=== PATIENT | female | born 1940 | race Caucasian/White ===

== ENCOUNTER 2022-03-22 08:47 | Day surgery (SDC) | payer MEDICARE, SELFPAY ==
[2022-03-11 11:23] VITALS: BMI 24.9
--- NOTE | 2022-03-18 09:09 | MHC.SHP ---
Pre-Procedural Eval Section A Date of Service: 03/18/22 The patient is an INPATIENT: No Changes since office visit: No Cold of Flu in the past 2 weeks, No New Medical Problems, No Changes in Medication and No Patient answered all questions The History & Physical has been completed within 30 days and I have reviewed it.: Yes Section B Chief Complaint: cataract Allergies: Allergies Allergy/AdvReac Type Severity Reaction Status Date / Time Influenza Virus Vaccines Allergy Intermediate Rash, Verified 03/11/22 11:13 fever, flu-like symptoms latex Allergy Intermediate Rash Verified 03/11/22 11:13 piroxicam [From Feldene] Allergy Intermediate Rash Verified 03/11/22 11:13 Codeine Phosphate AdvReac Unknown stomach Uncoded 03/11/22 11:13 upset, n/v Plan Diagnosis/Plan: Unchanged I have reviewed the history and physical and performed a pertinent physical examination on my patient. No changes have occurred unless specified.
--- NOTE | 2022-03-19 10:09 | HO.ANESPROP2 ---
Documented by User: Mya Coleman NP 03/19/22 10:10 HPI - Anesthesia Eval Consult details Narrative: 81yo F for Right Cataract Extraction IOL Insertion PCP cleared No previous cataract on record PMFSH Past Medical History Medical History Anxiety Cataract History of hepatitis HTN (hypertension) Hypothyroidism (acquired) Osteoarthritis Paroxysmal tachycardia Personal history of COVID-19 Seasonal allergies Surgical History Surgical History History of liver biopsy History of lumpectomy of left breast History of pubovaginal sling History of total right hip replacement Hx of colonoscopy Hx of partial thyroidectomy Social History Social History Are you a primary personal care worker to a significant other at home: No Do you presently have visiting nurse or other home services: No Patient Tobacco Use Status: Never used Tobacco Use of substances other than those prescribed or required for medical reasons: No Have you been hit, kicked, punched, or otherwise hurt by someone within the past year? If so, by whom?: No Are you DNR?: No Advance Directives: No Advance Directives Information Provided: Yes Advance Directives on File: No Recently lost weight without trying: No Nutrition Risks: Surgical patient >75years Meds Allergies Allergy/AdvReac Type Severity Reaction Status Date / Time Influenza Virus Vaccines Allergy Intermediate Rash, Verified 03/11/22 11:13 fever, flu-like symptoms latex Allergy Intermediate Rash Verified 03/11/22 11:13 piroxicam [From Feldene] Allergy Intermediate Rash Verified 03/11/22 11:13 Codeine Phosphate AdvReac Unknown stomach Uncoded 03/11/22 11:13 upset, n/v Home Medications Medication Instructions Recorded Confirmed Last Taken Type atenolol 50 mg tablet 1.5 tab PO DAILY 03/11/22 03/11/22 Unknown History calcium carbonate 500 mg-vitamin 1 tab PO DAILY 03/11/22 03/11/22 Unknown History D3 10 mcg (400 unit) tablet (Calcium 500 + D) flaxseed oil 1,300 mg-omega 3,6,9 1 cap PO BID 03/11/22 03/11/22 Unknown History 845 mg-117 mg-117 mg capsule levothyroxine 50 mcg tablet 1 tab PO DAILY 03/11/22 03/22/22 03/22/22 History Exam Exam Date and Time: March 19, 2022 1009 Height,Weight and Vital Signs: Height 5 ft 7 in Weight 72.121 kg Assessment and Plan Assessment Anesthesia Assessment: Chart Reviewed Documented by User: Melania Gao MD 03/22/22 11:01 [facility] Past Medical History Medical History Anxiety Cataract History of hepatitis HTN (hypertension) Hypothyroidism (acquired) Osteoarthritis Paroxysmal tachycardia Personal history of COVID-19 Seasonal allergies Family History Family history of problems with anesthesia: No Surgical History Surgical History History of liver biopsy History of lumpectomy of left breast History of pubovaginal sling History of total right hip replacement Hx of colonoscopy Hx of partial thyroidectomy History of Problems with Anesthesia: No Social History Social History Are you a primary personal care worker to a significant other at home: No Do you presently have visiting nurse or other home services: No Patient Tobacco Use Status: Never used Tobacco Use of substances other than those prescribed or required for medical reasons: No Have you been hit, kicked, punched, or otherwise hurt by someone within the past year? If so, by whom?: No Are you DNR?: No Advance Directives: No Advance Directives Information Provided: Yes Advance Directives on File: No Recently lost weight without trying: No Nutrition Risks: Surgical patient >75years Meds Allergies Allergy/AdvReac Type Severity Reaction Status Date / Time Influenza Virus Vaccines Allergy Intermediate Rash, Verified 03/11/22 11:13 fever, flu-like symptoms latex Allergy Intermediate Rash Verified 03/11/22 11:13 piroxicam [From Feldene] Allergy Intermediate Rash Verified 03/11/22 11:13 Codeine Phosphate AdvReac Unknown stomach Uncoded 03/11/22 11:13 upset, n/v Home Medications Medication Instructions Recorded Confirmed Last Taken Type atenolol 50 mg tablet 1.5 tab PO DAILY 03/11/22 03/11/22 Unknown History calcium carbonate 500 mg-vitamin 1 tab PO DAILY 03/11/22 03/11/22 Unknown History D3 10 mcg (400 unit) tablet (Calcium 500 + D) flaxseed oil 1,300 mg-omega 3,6,9 1 cap PO BID 03/11/22 03/11/22 Unknown History 845 mg-117 mg-117 mg capsule levothyroxine 50 mcg tablet 1 tab PO DAILY 03/11/22 03/22/22 03/22/22 History Exam Height,Weight and Vital Signs: Height 5 ft 7 in Weight 72.121 kg Vital Signs Temp Pulse Resp BP Pulse Ox O2 Del Method 03/22/22 10:45 97.8 F 63 18 166/88 H 99 Room Air Airway Mallampati Class: II TM Dist: >3cm Neck ROM: Full Loose/Missing/Broken Teeth: No (Per patient) Heart: RRR Lungs: CTAB Assessment and Plan Assessment Anesthesia Assessment: Anesthesia Plan Discussed Final Anesthetic Review Family History of Problems with Anesthesia: No History of Problems with Anesthesia: No NPO: Yes ASA Class: II Final Preanesthetic Review: No Changes in Pt Med Stat, Meds/Allgs Chart Reviewed, Consent Obtained/Reviewed and Anes Risks/Benef Reviewed Patient Risk: Low Procedure Risk: Low Assessment/Block/Sedation in SS: Assess/Block/Sedation-SS Anesthetic Plan Anesthetic Plan: MAC: Disposition: Standard PACU
[2022-03-22 10:45] VITALS: BP 166/88; PULSE 63; RESP 18; TEMP 36.6; O2SAT 99
[2022-03-22] MEDS: Tropicamide 1 % Ophth Sol 3 ML BTL 1 DROP EYE-RIGHT ×3 (10:49→11:02)
[2022-03-22] MEDS: Tetracaine HCl/PF 0.5% Oph Sol 4 ML DROPS 1 DROP EYE-RIGHT (10:49)
[2022-03-22] MEDS: Phenylephrine HCL 2.5% Oph SoL 2 ML BOTTLE 1 DROP EYE-RIGHT ×3 (10:50→11:02)
[2022-03-22] MEDS: Cyclopentolate 1 % Ophth Sol 2 ML DRPBTL 1 DROP EYE-RIGHT ×3 (10:50→11:02)
[2022-03-22] MEDS: Lactated Ringers 500 ML 50 ML IV (11:08)
--- NOTE | 2022-03-22 11:54 | HO.PNOPHT ---
Ophthalmology Procedure Procedure Date of Service: 03/22/22 Ophthalmology Viscoelastic: Healon Duet Dual Pack Pro Ophthalmology Lenses: Not Applicable Procedure Notes: PREOPERATIVE DIAGNOSIS: Decreased visual acuity right eye secondary to cataract POSTOPERATIVE DIAGNOSIS: Same PROCEDURE: Right cataract extraction with intraocular lens insertion SURGEON: Bj Mercedes M.D. ANESTHESIA: Topical/MAC ESTIMATED BLOOD LOSS: None COMPLICATIONS: Marked corneal edema After obtaining informed consent, the patient was brought to the operating room suite and placed in the supine position. After adequate sedation per anesthesia, topical drops of Tetracaine were given to the right eye. The eye was then prepped and draped in the usual sterile fashion. The operating room microscope was then positioned over the operative eye and a lid speculum placed. A paracentesis was created. Viscoelastic was then instilled into the anterior chamber. A three plane incision was then created temporally, utilizing a 2.85 mm keratome. The cornea became cloudy and edematous. I cancelled the surgery because I could not proceed safely. The residual Viscoelastic was then removed utilizing the automated IA machine. The wound was checked and found to be watertight. The lid speculum was removed. A subtenon injection of Kenalog-40 0.2 mL were administered. The patient will be seen in the a.m.
[2022-03-22 12:18] VITALS: BP 159/81; PULSE 64; RESP 16; TEMP 36.1; O2SAT 97
== END 2022-03-22 12:21 | disposition home or self-care (01) ==
PROVIDERS: PCP Internal Medicine; Visit Provider Ophthalmology
DX: H25.11 Age-related nuclear cataract, right eye (principal); H59.88 Other intraoperative complications of eye and adnexa, not elsewhere classified; H18.231 Secondary corneal edema, right eye; Y84.8 Other medical procedures as the cause of abnormal reaction of the patient, or of later complication, without mention of misadventure at the time of the procedure; Z53.29 Procedure and treatment not carried out because of patient's decision for other reasons
CPT/HCPCS: 66984; J2250; J3010; J3300

== ENCOUNTER 2025-06-23 11:25 | Emergency (ER) | payer MEDICARE, SELFPAY ==
--- OUTSIDE RECORDS SUMMARY | 2009-06-23 12:30 | XMS_ITS | Encounter Summary ---
Author Organization [facility] Address [address] [place] [phone] Care Team Providers Care Tread Builder Name Role Phone Unavailable Primary Care Provider Unavailabl e Encounter Details Date Type Department Care Team (Latest Contact Info) Description 06/23/2009 12:30 PM EST Hospital Encounter [facility] Interventional Radiology [address] [place] [address] [phone] Ernestine Mack MD [address] [place] [phone] Social History Tobacco Use Types Packs/Day Years Used Date Smoking Tobacco: Never Assessed Comments Unknown Sex and Gender Information Value Date Recorded Sex Assigned at Not on file Legal Sex Female 8:28 AM EST Gender Identity Not on file Sexual Orientation Not on file documented as of this encounter Plan of Treatment Not on file documented as of this encounter Visit Diagnoses Not on filedocumented in this encounter
--- OUTSIDE RECORDS SUMMARY | 2025-06-19 09:45 | XMS_ITS | Encounter Summary ---
Author Organization [facility] Address [facility] [address] [address] Phone Care Team Providers Care Rig Manager Name Role Phone Alessandro Chang MD Primary Care Provider Isael Romero MD Unavailable [phone] Cintia Pate PA-C Unavailable [phone] Reason for Visit * Physical Therapy (Within 1 month) - Authorized Specialty Diagnoses / Procedures Referred By Johanne hoksins Referred To Contact Physical Therapy Diagnoses Encounter for rehabilitation Morris Fry MD [address] [place] [address] Phone: tel: fax: [facility] [address] [place] [address] Phone: tel: Referral ID Status Reason Start Date Expiration Date V isits Requested Visits Authorized [id number] Authorized 04/17/2025 04/17/2026 99 99 Encounter Details Date Type Department Care Team (Late st Contact Info) Description 06/19/2025 10:45 AM EDT Office Visit [facility] Services [address] [place] [phone] Morris Fry MD [address] [place] [phone] Dagmar Lopez, PT [address] [place] [address] [email or web address] Acute postoperative pain of left hip (Primary Dx) Social History Tobacco Use Types Packs/Day Years Used Date Smoking Tobacco: Never Smokeless Tobacco: Never Alcohol Use Standard Drinks/Week Comments Yes 7 (1 standard drink = 0.6 oz pur e alcohol) Home Health Assessment: Transportation Answer Date Recorded Lack of Transportation (Medical) No 04/20/2023 Lack of Transportation (Non-Medical) No 04/20/2023 Patient Unable or Declines to Respond No 04/20/2023 Education Answer Date Recorded Are you interested in more education? Not on ladarius e 12/17/2022 Are you concerned about learning? Not on file 12/17/2022 No 12/17/2022 No 12/17/2022 Digital Access Answer Date Recorded No 01/15/2023 No 01/15/2023 Reliable internet access at home? Not on file 01/15/2023 Device with a working camera? Not on file Intimate Partner Violence Answer Date R ecorded Are you denied basic needs s uch as food, clothing, or medical care? No 04/06/2023 In the past 12 months have y ou been in a relationship with a person who hurts, threatens, or tries to control you? No 04/06/2023 Are you denied basic needs s uch as food, clothing, or medical care? No 04/06/2023 In the past 12 months have y ou been in a relationship with a person who hurts, threatens, or tries to control you? No 04/06/2023 Comments No Sex and Gender Information Value Date Recorded Sex Assigned at Not on file Legal Sex Female 10:38 PM EDT Gender Identity Not on file Sexual Orientation Not on file documented as of this encounter Progress Notes * Dagmar Lopez, PT - 06/19/2025 10:45 AM EDT Subject Line: Treatment Note Physical Therapy Treatment Note Patient Name: Pee Richards Date of : 1940 Referring MD: Morris Fry MD [address] [place] [address] Evaluation Date: SOC Date: 06/17/25 Diagnosis: Acute postoperative pain of left hip [G89.18, M25.552] Precautions/ Safety: L THR, latex allergy This patient has attended 2 visits since the onset Physical Therapy. SUBJECTIVE: Pt continues to deny L hip pain, but reports decreased ROM and strength. OBJECTIVE: Strength: Lower Extremity Strength MMT- EVAL 06/17/25 HIP Right Left Flexion 5/5 4/5 Extension 4-/5 4-/5 Abduction 4-/5 3+/5 Internal Rotation 4+/5 4/5 External Rotation 3+/5 2+/5 KNEE Right Left Flexion 5/5 5/5 Extension 5/5 5/5 ANKLE Right Left Dorsiflexion 5/5 5/5 Plantarflexion 4+/5 4+/5 Treatment Interventions: See encounter report for minutes associated with each intervention. Therapeutic Exercise: Recumbent bike 5 mins L=1 Standing marching 20x ea Sidelying hip abd 10x ea Bridging 10x Clam shells with YTB 10x ea Sitting hip IR/ER 10x ea Standing hip ext leaning over counter 10x ea Home Exercise Program: Standing marching Sidelying hip abd Bridging Clam shells with YTB Sitting hip IR/ER Standing hip ext leaning over counter Sidestepping Step ups SLR Not Performed Today but will be used in future visits: ASSESSMENT: Good tolerance to initiating LE strengthening exercises. Will continue to progress as tolerated. PLAN: Continue POC- ROM, stretching, strengthening, manual therapy as needed, functional activities, gait Dagmar Lopez, ANUP [phone] documented in this encounter Plan of Treatment Upcoming Encounters Date Type Department Care Team (Latest Contact Info) Description 06/24/2025 10:45 AM EST Office Visit [facility] Rehabilitation [facility] [address] [place] [address] Morris Fry MD [address] [place] [phone] Dagmar Lopez, PT [address] [place] [address] [email or web address] 06/27/2025 10:15 AM EST Office Visit [address] [address] Morris Fry MD [address] [place] [phone] Lashawn Ramirez, [address] [address] [email or web address] 07/01/2025 10:15 AM EST Office Visit [address] [address] Morris Fry MD [address] [place] [phone] Lashawn Ramirez, [address] [address] [email or web address] 07/03/2025 10:00 AM EST Office Visit [address] [address] Morris Fry MD [address] [place] [phone] Dagmar Lopez, PT [address] [place] [address] [email or web address] 07/08/2025 10:00 AM EST Office Visit [address] [address] Morris Fry MD [address] [place] [phone] Dagmar Lopez, PT [address] [place] [address] [email or web address] 07/12/2025 10:15 AM EST Office Visit [address] [address] Morris Fry MD [address] [place] [address] Lashawn Ramirez, INSEMINATION WORKER [address] [place] [address] [email or web address] 07/15/2025 10:45 AM EST Office Visit [address] [address] Morris Fry MD [address] [place] [phone] Dagmar Lopez, PT [address] [place] [address] [email or web address] 07/17/2025 10:45 AM EST Office Visit [address] [address] Morris Fry MD [address] [place] [phone] Dagmar Lopez, PT [address] [place] [address] [email or web address] 07/22/2025 11:00 AM EST Office Visit [address] [address] Morris Fry MD [address] [place] [phone] Lashawn Ramirez, INSEMINATION WORKER [address] [place] [address] [email or web address] 07/25/2025 10:45 AM EST Office Visit [address] [address] Morris Fry MD [address] [place] [phone] Dagmar Lopez, PT [address] [place] [address] [email or web address] 07/29/2025 10:45 AM EST Office Visit [address] [address] Morris Fry MD [address] [place] [phone] Dagmar Lopez, PT [address] [place] [address] [email or web address] 08/01/2025 10:45 AM EST Office Visit [address] [address] Morris Fry MD [address] [place] [phone] Dagmar Lopez, PT [address] [place] [address] [email or web address] 08/05/2025 10:15 AM EST Office Visit [address] [address] Morris Fry MD [address] [place] [phone] Lashawn Ramirez, INSEMINATION WORKER [address] [place] [address] [email or web address] 08/08/2025 10:45 AM EST Office Visit [address] [address] Morris Fry MD [address] [place] [phone] Dagmar Lopez, PT [address] [place] [address] [email or web address] 08/12/2025 10:45 AM EST Office Visit [address] [address] Morris Fry MD [address] [place] [phone] Dagmar Lopez, PT [address] [place] [address] [email or web address] 08/14/2025 10:00 AM EST Office Visit [address] [address] Morris Fry MD [address] [place] [phone] Dagmar Lopez, PT [address] [place] [address] [email or web address] 08/19/2025 11:00 AM EST Office Visit [address] [address] Morris Fry MD [address] [place] [phone] Lashawn Ramirez, INSEMINATION WORKER [address] [place] [address] [email or web address] 08/21/2025 10:45 AM EST Office Visit [address] [address] Brothers, Morris Snider MD [address] [place] [phone] Dagmar Lopez, PT [address] [place] [address] [email or web address] 10/03/2025 9:30 AM EST Office Visit [facility] [address] [place] [address] Marcio Saba PA-C [address] [place] [address] Orthopedics Sports [facility], [place] [address] [email or web address] 10/21/2025 Procedure Pass OR Admitting Dept - Virtual Department [address] [place] [address] 10/21/2025 1:47 PM EST Hospital Encounter OR Admitting Dept - Virtual Department [address] [place] [address] Jase Jaime MD [address] [place] [address] Orthopedics Sports [facility], [place] [address] [email or web address] 10/21/2025 1:47 PM EST - 10/21/2025 4:54 PM EST Surgery OR Admitting Dept - Virtual Department [address] [place] [address] Jase Jaime MD [address] [place] [address] Orthopedics Sports [facility], [place] [address] [email or web address] ARTHROPLASTY TOTAL KNEE 10/31/2025 10:30 AM EDT Office Visit [facility] [address] [place] [address] Marcio Saba PA-C [address] [place] [address] Orthopedics & Sports [facility], [place] [address] [email or web address] 12/05/2025 10:15 AM EDT Office Visit [facility] [address] [place] [address] Jase Jaime MD [address] [place] [address] Orthopedics & Sports Medicine, [place] [address] [email or web address] Scheduled Procedures Name Priority Associated Diagnoses Date/Ti me ARTHROPLASTY TOTAL KNEE Primary osteoarthritis of right knee 10/21/2025 1:47 PM EST documented as of this encounter Visit Diagnoses Diagnosis Acute postoperative pain of left hip- Primary Primary osteoarthritis of right knee documented in this encounter Care Teams Rig Manager Relationship Specialty Start Date End Date Alessandro Chang MD [address] [place] [phone] PCP - General 06/09/17 Iasel Romero MD [address] [place] [address] [email or web address] Historical LMR Provider 06/11/17 Cintia Pate PA-C [address] [place] [address] [facility] [place], [place] [address] [email or web address] Historical LMR Provider 06/11/17 documented as of this encounter Additional Source Comments The information contained in this document represents components of the legal health record. It is not the complete legal health record.[facility]
--- NOTE | 2025-06-23 | ECG_ITS ---
Test Reason : PALPATAION Blood Pressure : */* mmHG Vent. Rate : 130 BPM Atrial Rate : * BPM P-R Int : * ms QRS Dur : 78 ms QT Int : 310 ms P-R-T Axes : * 16 96 degrees QTcB Int : 456 ms Atrial fibrillation with rapid ventricular response Abnormal QRS-T angle, consider primary T wave abnormality Abnormal ECG No previous ECGs available Referred By: Generic ED Physician Electronically Signed By: Chris Burleson
--- NOTE | ~2025-06-23 | XR_ITS ---
CLINICAL HISTORY: cp 1 view chest x-ray. Comparison: None Findings: Normal lung volumes. Lungs are clear. No pneumothorax or pleural effusion. Heart size normal. No passive venous congestion. No midline shift or tracheal deviation. No acute fracture. Chronic degenerative changes glenohumeral joints Impression: 1. No acute cardiopulmonary disease. This document has been electronically signed by: Julio Birch MD on 06/23/2025 13:53:49
[2025-06-23 11:42] VITALS: BP 132/81; BP 150/76; PULSE 140; PULSE 142; RESP 20; TEMP 36.4; O2SAT 95; O2SAT 96; BMI 26.3
[2025-06-23 11:51] VITALS: BP 132/81; PULSE 142; RESP 20; TEMP 36.4; O2SAT 96
--- NOTE | 2025-06-23 12:37 | ED.CHESTPAIN ---
HPI - Chest Pain General Chief Complaint: Chest Pain Stated Complaint: PALPITATIONS,HR 125 PER EMS Time Seen by Provider: 06/23/25 11:47 History of Present Illness HPI narrative: Patient is an 84-year-old female with a history of SVTs. Never had any atrial fibrillation in the past. At approximately 08:00 this morning patient noted palpitation. From home. No fever no chills no travel no leg swelling positive history of thyroid problems in the past no history of congestive heart failure no chest pain or diaphoresis. Patient is from home. No history of strokes in the past. Borderline hypertension. Came to the ED because of the increased heart rate. 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 No chest pain associated with these symptoms. Related Data Home Medications ?Medication ?Instructions ?Recorded ?Confirmed atenolol 50 mg tablet 1.5 tab PO DAILY 03/11/22 03/11/22 calcium 500 mg (as 1 tab PO DAILY 03/11/22 03/11/22 carbonate)-vitamin D3 10 mcg (400 unit) tablet (Calcium 500 + D) flaxseed oil 1,300 mg-omega 3,6,9 1 cap PO BID 03/11/22 03/11/22 845 mg-117 mg-117 mg capsule levothyroxine 50 mcg tablet 1 tab PO DAILY 03/11/22 03/22/22 Previous Rx's ?Medication ?Instructions ?Recorded apixaban 5 mg tablet (Eliquis) 5 mg PO BID #60 tabs 06/23/25 atenolol 100 mg tablet 100 mg PO DAILY #30 tabs 06/23/25 Allergies Allergy/AdvReac Type Severity Reaction Status Date / Time Influenza Virus Vaccines Allergy Intermediate Rash, Verified 06/23/25 11:48 fever, flu-like symptoms latex Allergy Intermediate Rash Verified 06/23/25 11:48 piroxicam (From Feldene) Allergy Intermediate Rash Verified 06/23/25 11:48 Codeine Phosphate AdvReac Unknown stomach Uncoded 06/23/25 11:48 upset, n/v Review of Systems Review of Systems: Positive palpitation Yes all other systems are reviewed and are negative PMFSH Past Medical History Attestation statement: The following information was validated with the patient. Medical History Anxiety Cataract History of hepatitis HTN (hypertension) Hypothyroidism (acquired) Osteoarthritis Paroxysmal tachycardia Personal history of COVID-19 Seasonal allergies Surgical History History of liver biopsy History of lumpectomy of left breast History of pubovaginal sling History of total right hip replacement Hx of colonoscopy Hx of partial thyroidectomy Social History Social History Are you a primary health care attorney to a significant other at home: No Do you presently have visiting nurse or other home services: No Patient Tobacco Use Status: Never used Tobacco Smoked in Last 30 Days: No Use of substances other than those prescribed or required for medical reasons: No Advance Directives: No Advance Directives Information Provided: Yes Do you have a plan to hurt others: No Plan Physical Exam Exam: Exam: Appearance: Alert. Oriented X3. No acute distress. Eyes: Pupils equal, round and reactive to light. ENT: Pharynx normal. Neck: Normal inspection. Neck supple. No lymph nodes noted. No crepitus CVS: Irregularly irregular Pulses normal. Normal S1 and S2 Respiratory: No respiratory distress. Breath sounds normal. No Wheezing. No rales Abdomen: Soft and nontender. No rigidity. No distention. good BS x4 Skin: Skin warm and dry. Normal skin color. Normal skin turgor. Extremities: No lower extremity edema. Neurovascular intact to all extremities. No Lacerations. No Rash Neuro: Oriented X 3. No motor deficit. No sensory deficit. Moving all extermities. No slurred speech Vital Signs: Vital Signs: Last Vital Signs Temp 97.5 F 06/23/25 11:51 Pulse 133 H 06/23/25 13:25 Resp 20 06/23/25 11:51 BP 120/79 06/23/25 13:25 Pulse Ox 96 06/23/25 11:51 O2 Del Method Room Air 06/23/25 11:51 BMI result Body Mass Index 26.3 Medications Administered Discontinued Medications Generic Name Dose Route Start Last Admin Trade Name Freq PRN Reason Stop Dose Admin Sodium Chloride 500 mls @ 999 mls/hr 06/23/25 12:45 06/23/25 13:25 Ns IV 06/23/25 13:15 Infused .Q31M DAVIDA Infusion Metoprolol Tartrate 5 mg 06/23/25 12:37 06/23/25 12:50 Metoprolol Tartrate 5 Mg/5 Ml Vial IVPUSH 06/23/25 12:38 5 mg ONCE ONE Administration Protocol Metoprolol Tartrate 5 mg 06/23/25 13:12 06/23/25 13:24 Metoprolol Tartrate 5 Mg/5 Ml Vial IVPUSH 06/23/25 13:13 5 mg ONCE ONE Administration Protocol Medical Decision Making Medical Decision Making [facility] Narrative: Patient initially presented in atrial fibrillation. The heart rate was 130-150. My interpretation patient's EKG shows an atrial fibrillation pattern 130. No acute ST segment elevation. Patient has a history of being 84 years old. Also female. Also has a history of hypertension. Chads Vasc score is at least a 3 to a 4. Patient will be started on Eliquis. In addition patient has a history of SVT. Currently is on atenolol 75 mg. After 2 doses of metoprolol patient's switch into a sinus pattern. I discussed the case with Cardiology felt comfortable with starting the Eliquis wants the atenolol to be increased to 100 mg daily. Currently in stable condition. Will discharge home. Cardiac enzyme was negative. Labs are normal. TSH is normal. Differential Diagnosis Differential Diagnoses: The differential diagnosis associated with the presentation includes Hyperthyroid, ACS, EtOH, anemia, AFib, SVT Admission/Observation Consideration of admission/observation: Escalation of care including admission/observation considered Consult Healthcare Provider Management of the patient was discussed with: Plate Stacker Hand (Cardiology) Lab Data [facility] Lab Attestation statement: I reviewed the patient's lab results. 06/23/25 13:28 06/23/25 13:28 Labs: Lab Results 06/23/25 Range/Units 13:28 WBC 7.3 (4.8-10.8) X10*3/uL RBC 4.15 L (4.20-5.50) X10*6/uL Hgb 13.0 (12.0-16.0) g/dl Hct 39.9 (37.0-47.0) % MCV 96.1 (80.0-98.0) fL MCH 31.3 (27.0-33.0) pg MCHC 32.6 (31.0-35.0) g/dl RDW 11.8 (11.0-16.0) % Plt Count 253 (160-400) X10*3/uL MPV 9.8 (9.4-12.3) fL Immature Gran % (Auto) 0.3 (0.0-0.4) % Neut % (Auto) 72.6 (45-73) % Lymph % (Auto) 12.1 L (20-40) % Tama % (Auto) 12.5 H (2-11) % Eos % (Auto) 2.2 (0-4) % Baso % (Auto) 0.3 (0-2) % Lymph # (Auto) 0.9 L (1.2-4.9) X10*3/uL Tama # (Auto) 0.9 (0.1-1.2) X10*3/uL Eos # (Auto) 0.2 (0.0-0.4) X10*3/uL Baso # (Auto) 0.0 (0.0-0.2) X10*3/uL Abs Immat Gran (auto) 0.02 (0.00-0.03) X10*3/uL Absolute Neuts (auto) 5.3 (2.0-8.3) x10*3/uL Absolute Nucleated RBC 0.000 (0.0-0.012) X10*3/uL Nucleated RBC % (auto) 0.0 (0.0-0.2) /100WBC PT 11.6 (10.9-12.4) SEC INR 1.0 (0.9-1.1) Sodium 137 (135-145) mmol/L Potassium 4.5 (3.3-5.1) mmol/L Chloride 103 (96-108) mmol/L Carbon Dioxide 26 (22-29) mmol/L Anion Gap 13 (12-20) BUN 12 (9-16) mg/dL Creatinine 0.58 (0.5-1.4) mg/dL Estim Creat Clear Calc 76.8 Estimated GFR > 60 Random Glucose 94 (60-115) mg/dL Calcium 8.3 L (8.4-10.2) mg/dL Magnesium 1.9 (1.6-2.6) mg/dL Total Bilirubin 0.5 (0.0-1.0) mg/dL Direct Bilirubin 0.2 (0.0-0.5) mg/dL AST 29 (5-31) U/L ALT 12 (0-31) U/L Alkaline Phosphatase 103 (39-117) U/L Troponin I High Sens 7.6 (<3.5-17.0) ng/L Total Protein 6.0 L (6.5-8.0) g/dL Albumin 3.6 (3.5-5.0) g/dL TSH 0.93 (0.32-4.0) uIU/mL Ethyl Alcohol < 10 mg/dL Independent Interpretation I performed an independent interpretation of an: EKG (Atrial fibrillation heart rate is 130. My interpretation patient's 2nd EKG showed a sinus rhythm heart rate is 75 [place] QRS QTC within normal limits is no acute ST segment elevation.) and Plain X-Ray (Chest x-ray grossly negative) Radiology Impression Discussion of test interpretation with radiology: I have reviewed the radiologist's reading. Independent Historian Clinical information obtained from an independent historian. History obtained from or confirmed by: Other (Family) External Record Review External record reviewed: Outpatient record Chronic Conditions svt Discharge Plan Discharge Clinical Impression: A-fib Patient Disposition: Home, Self-Care Instructions: A-fib (Atrial Fibrillation) (ED) Prescriptions: New Eliquis 5 mg tablet 5 mg PO BID Qty: 60 0RF atenolol 100 mg tablet 100 mg PO DAILY Qty: 30 0RF No Action levothyroxine 50 mcg tablet 1 tab PO DAILY atenolol 50 mg tablet 1.5 tab PO DAILY calcium carbonate-vitamin D3 [Calcium 500 + D] 500 mg-10 mcg (400 unit) Tablet 1 tab PO DAILY flaxseed oil-omega 3,6,9 1,300 mg-845 mg -117 mg-117 mg Capsule 1 cap PO BID Referrals: Ron Mejia MD [Physician, Cardiology] - 06/25/25 Print Language: Luxembourgish
--- OUTSIDE RECORDS SUMMARY | 2025-06-23 12:48 | XMS_ITS | Encounter Summary ---
Author Organization [facility] Address [address] [place] [phone] Care Team Providers Care Travel Occupational Therapist Name Role Phone Unavailable Primary Care Provider Unavailabl e Encounter Details Date Type Department Care Team (Late st Contact Info) Description 04/21/2021 Scanned Document [facility] [address] [place] [address] [place] [id number] Ernestine Mack MD [address] [place] [phone] Social History Tobacco Use Types Packs/Day Years Used Date Smoking Tobacco: Never Assessed Comments Unknown Sex and Gender Information Value Date Recorded Sex Assigned at Not on file Legal Sex Female 8:28 AM EST Gender Identity Not on file Sexual Orientation Not on file documented as of this encounter Plan of Treatment Not on file documented as of this encounter Procedures Procedure Name Priority Date/Time Associated Diagnosis Comments LAB SCAN Routine 04/20/2021 documented in this encounter Results * Lab Scan (04/20/2021) us Ernestine Mack MD LAB BLOOD ORDERABLES Final Result documented in this encounter Visit Diagnoses Not on filedocumented in this encounter
--- OUTSIDE RECORDS SUMMARY | 2025-06-23 12:48 | XMS_ITS | Encounter Summary ---
Author Organization [facility] Address [address] [place] [phone] Care Team Providers Care Keg Washer Name Role Phone Unavailable Primary Care Provider Unavailabl e Encounter Details Date Type Department Care Team (Late st Contact Info) Description 03/04/2016 Scanned Document [facility] [address] [facility] [address] [facility] [address] [place] [address] External, Provider Social History Tobacco Use Types Packs/Day Years [...] Date/Time Associated Diagnosis Comments LAB SCAN Routine 02/24/2016 documented in this encounter Results * Lab Scan (02/24/2016) Blood specimen (specimen) us Provider External LAB BLOOD ORDERABLES Final Res ult [facility] [place], [place], [facility] documented in this encounter Visit Diagnoses Not on filedocumented in this encounter
--- OUTSIDE RECORDS SUMMARY | 2025-06-23 12:48 | XMS_ITS | Encounter Summary ---
Author Organization [facility] Address [address] [place] [phone] Care Team Providers Care Junior Systems Engineer Name Role Phone Unavailable Primary Care Provider Unavailabl e Encounter Details Date Type Department Care Team (Late st Contact Info) Description 09/22/2015 Scanned Document [facility] [address] [facility] [address] [facility] [address] [place] [address] External, Provider Social History Tobacco Use Types [...] Date/Time Associated Diagnosis Comments LAB SCAN Routine 08/28/2015 documented in this encounter Results * Lab Scan (08/28/2015) Blood specimen (specimen) us Provider External LAB BLOOD ORDERABLES Final Res ult [facility] [place], [place], [facility] documented in this encounter Visit Diagnoses Not on filedocumented in this encounter
--- OUTSIDE RECORDS SUMMARY | 2025-06-23 12:48 | XMS_ITS | Encounter Summary ---
Author Organization [facility] Address [address] [facility] [address] [place] [phone] Phone Care Team Providers Care Punchboard Assembler Name Role Phone Alessandro Chang MD Primary Care Provider Isael Romero MD Unavailable [phone] Cintia Pate PA-C Unavailable [phone] Encounter Details Date Type Department Care Team (Late st Contact Info) Description 03/08/2023 Ancillary Orders [facility] & [facility] Medicine [address] [place] [phone] Marcio Saba PA-C [address] [place] [address] Orthopedics & Sports Medicine, [facility] [place], [place] [id number] Social History Tobacco Use Types Packs/Day Years Used Date Smoking Tobacco: Never Smokeless Tobacco: Never Alcohol Use Standard Drinks/Week Comments Yes 1 (1 standard drink = 0.6 oz pur e alcohol) daily Education Answer Date Recorded Are you interested in more education? Not on ladarius e 12/17/2022 Are you concerned about learning? Not on file 12/17/2022 No 12/17/2022 No 12/17/2022 Digital Access Answer Date Recorded No 01/15/2023 No 01/15/2023 Reliable internet access at home? Not on file 01/15/2023 Device with a working camera? Not on file Comments Unknown Sex and Gender Information Value Date Recorded Sex Assigned at Not on file Legal Sex Female 10:38 PM EDT Gender Identity Not on file Sexual Orientation Not on file documented as of this encounter Plan of Treatment Upcoming Encounters Date Type Department Care Team (Latest Contact Info) Description 06/24/2025 10:45 AM EST Office Visit [address] [address] Morris Fyr MD [address] [place] [phone] Dagmar Lopez, PT [address] [place] [address] sue [email or web address] 06/27/2025 10:15 AM EST Office Visit [address] [address] Morris Fry MD [address] [place] [phone] Lashawn Ramirez, RECRUITING SPECIALIST [address] [place] [phone] [email or web address] 07/01/2025 10:15 AM EST Office Visit [address] [address] Morris Fry MD [address] [place] [phone] Lashawn Ramirez, RECRUITING SPECIALIST [address] [place] [address] [email or web address] 07/03/2025 10:00 AM EST Office Visit [address] [address] Morris Fry MD [address] [place] [address] Dagmar Lopez, PT [address] [place] [address] sue [email or web address] 07/08/2025 10:00 AM EST Office Visit [address] [address] Morris Fry MD [address] [place] [phone] Dagmar Lopez, PT [address] [place] [address] [email or web address] 07/12/2025 10:15 AM EST Office Visit [address] [address] Morris Fry MD [address] [place] [phone] Lashawn Ramirez, RECRUITING SPECIALIST [address] [place] [address] [email or web address] 07/15/2025 10:45 AM EST Office Visit [address] [address] Morrsi rFy MD [address] [place] [phone] Dagmar Lopez, PT [address] [place] [address] [email or web address] 07/17/2025 10:45 AM EST Office Visit [address] [address] Morris Fry MD [address] [place] [phone] Dagmar Lopez, PT [address] [place] [address] sue [email or web address] 07/22/2025 11:00 AM EST Office Visit [address] [address] Morris Fry MD [address] [place] [phone] Lashawn Ramirez, RECRUITING SPECIALIST [address] [place] [address] [email or web address] 07/25/2025 10:45 AM EST Office Visit [address] [address] Morris Fry MD [address] [place] [phone] Dagmar Lopez, PT [address] [place] [address] [email or web address] 07/29/2025 10:45 AM EST Office Visit [address] [address] Morris Fry MD [address] [place] [address] Dagmar Lopez, PT [address] [place] [address] sue [email or web address] 08/01/2025 10:45 AM EST Office Visit [address] [address] Morris Fry MD [address] [place] [address] Dagmar Lopez, PT [address] [place] [address] [email or web address] 08/05/2025 10:15 AM EST Office Visit [address] [address] Morris Fry MD [address] [place] [address] Lashawn Ramirez, RECRUITING SPECIALIST [address] [place] [address] [email or web address] 08/08/2025 10:45 AM EST Office Visit [address] [address] Morris Fry MD [address] [place] [phone] Dagmar Lopez, PT [address] [place] [address] sue [email or web address] 08/12/2025 10:45 AM EST Office Visit [address] [address] Morris Fry MD [address] [place] [phone] Dagmar Lopez, PT [address] [place] [address] sue [email or web address] 08/14/2025 10:00 AM EST Office Visit [address] [address] Morris Fry MD [address] [place] [address] Dagmar Lopez, PT [address] [place] [address] [email or web address] 08/19/2025 11:00 AM EST Office Visit [address] [address] Morris Fry MD [address] [place] [address] Lashawn Ramirez RECRUITING SPECIALIST [address] [place] [address] [email or web address] 08/21/2025 10:45 AM EST Office Visit [address] [address] Morris Fry MD [address] [place] [phone] Dagmar Lopez, PT [address] [place] [address] [email or web address] 10/03/2025 9:30 AM EST Office Visit [facility] Orthopedics & Sports Medicine [address] [place] [address] Marcio Saba PA-C [address] [place] [address] Orthopedics & Sports Medicine, [place] [address] [email or web address] 10/21/2025 Procedure Pass OR Admitting Dept - Virtual Department [address] [place] [phone] 10/21/2025 1:47 PM EST Hospital Encounter OR Admitting Dept - Virtual Department [address] [place] [phone] Jase Jaime MD [address] [place] [address] Orthopedics & Sports Medicine, [place] [address] [email or web address] 10/21/2025 1:47 PM EST - 10/21/2025 4:54 PM EST Surgery OR Admitting Dept - Virtual Department [address] [place] [phone] Jase Jaime MD [address] [place] [address] Orthopedics & Sports [facility], [place], [place] [phone] [email or web address] ARTHROPLASTY TOTAL KNEE 10/31/2025 10:30 AM EDT Office Visit [facility]ics & Sports Medicine [address] [place] [phone] Marcio Saba PA-C [address] [place] [address] Orthopedics Sports [facility], [place] [address] [email or web address] 12/05/2025 10:15 AM EDT Office Visit [facility] Orthopedics & Sports [address] [address] aJse Jaime MD [address] [place] [address] Orthopedics Sports [facility], [place], [place] [phone] [email or web address] [email or web address] Procedures Name Priority Associated Diagnoses Date/Ti me ARTHROPLASTY TOTAL KNEE Primary osteoarthritis of right knee 10/21/2025 1:47 PM EST documented as of this encounter Visit Diagnoses Not on filedocumented in this encounter Additional Health Concerns Infection Onset Date Last Indicated Resolved Time CoV-Risk 06/25/2023 06/25/2023 07/06/2023 1:22 AM EST CoV-Risk 12/04/2024 12/04/2024 12/15/2024 1:21 AM EDT documented as of this encounter Care Teams Punchboard Assembler Relationship Specialty Start Date End Date Alessandro Chang MD [address] [place] [phone] PCP - General 06/09/17 Isael Romero MD [address] [place] [address] [email or web address] Historical LMR Provider 06/11/17 Cintia Pate PA-C [address] [place] [address] Orthopedics & Sports Medicine, [place] [address] [email or web address] Historical LMR Provider 06/11/17 documented as of this encounter Additional Source Comments The information contained in this document represents components of the legal health record. It is not the complete legal health record.[facility]
--- OUTSIDE RECORDS SUMMARY | 2025-06-23 12:48 | XMS_ITS | Encounter Summary ---
Author Organization [facility] Address Pending sale to [facility] [employer] [address] [address] Phone Care Team Providers Care Box Blank Machine Operator Helper Name Role Phone Alessandro Chang MD Primary Care Provider Alessandro Chang MD Unavailable [phone] Isael Romero MD Unavailable [phone] Cintia Pate PA-C Unavailable Encounter Details Date Type Department Care Team (Late st Contact Info) Description 06/20/2017 Procedure Pass OR Admitting Dept - [facility] Department [address] [place] [address] Social History Tobacco Use Types Packs/Day Years Used Date Smoking Tobacco: Never Smokeless Tobacco: Never Alcohol Use Standard Drinks/Week Comments Yes 0 (1 standard drink = 0.6 oz pur e alcohol) daily Comments Unknown Sex and Gender Information Value Date Recorded Sex Assigned at Not on file Legal Sex Female 10:38 PM EDT Gender Identity Not on file Sexual Orientation Not on file documented as of this encounter Plan of Treatment Upcoming Encounters Date Type Department Care Team (Latest Contact Info) Description 06/24/2025 10:45 AM EST Office Visit [facility] [address] [place] [address] Morris Fry MD [address] [place], [place] [address]bl[place] [address] Dagmar Lopez, PT 10 [place] [address] seu [email or web address] 06/27/2025 10:15 AM EST Office Visit [address] [address] Morris Fry MD 300 [place] [address] Lashawn Ramirez, PERSONNEL ADMINISTRATOR 10 [place] [address] [email or web address] 07/01/2025 10:15 AM EST Office Visit [address] [address] Morris Fry MD 300 [place] [address] Lashawn Ramirez, PERSONNEL ADMINISTRATOR 10 [place] [address] [email or web address] 07/03/2025 10:00 AM EST Office Visit [address] [address] Morris Fry MD 300 [place] [address] Dagmar Lopez, PT 10 [place] [address] sue [email or web address] 07/08/2025 10:00 AM EST Office Visit [address] [address] Morris Fry MD 300 [place] [phone] Dagmar Lopez, PT 10 [place] [address] sue [email or web address] 07/12/2025 10:15 AM EST Office Visit [address] [address] Morris Fry MD 300 [place] [phone] Lashawn Ramirez, PERSONNEL ADMINISTRATOR 10 [place] [address] [email or web address] 07/15/2025 10:45 AM EST Office Visit [address] [address] Morris Fry MD 300 [place] [address] Dagmar Lopez, PT 10 [place] [address] sue [email or web address] 07/17/2025 10:45 AM EST Office Visit [address] [address] Morris Fry MD 300 [place] [phone] Dagmar Lopez, PT 10 [place] [address] sue [email or web address] 07/22/2025 11:00 AM EST Office Visit [address] [address] Morris Fry MD 300 [place] [address] Lashawn Ramirez, PERSONNEL ADMINISTRATOR 10 [place] [address] [email or web address] 07/25/2025 10:45 AM EST Office Visit [address] [address] Morris Fry MD [address] [place] [address] Dagmar Lopez, PT 10 [place] [address] sue [email or web address] 07/29/2025 10:45 AM EST Office Visit [address] [address] Morris Fry MD [address] [place] [phone] Dagmar Lopez, PT 10 [place] [address] sue [email or web address] 08/01/2025 10:45 AM EST Office Visit [address] [address] Morris Fry MD 300 [place] [phone] Dagmar Lopez, PT 10 [place] [address] sue [email or web address] 08/05/2025 10:15 AM EST Office Visit [address] [address] Morris Fry MD [address] [place] [phone] Lashawn Ramirez, PERSONNEL ADMINISTRATOR 10 [place] [address] [email or web address] 08/08/2025 10:45 AM EST Office Visit [address] [address] Morris Fry MD 300 [place] [phone] Dagmar Lopez, PT 10 [place] [address] sue [email or web address] 08/12/2025 10:45 AM EST Office Visit [address] [address] Morris Fry MD 300 [place] [phone] Dagmar Lopez, PT 10 [place] [address] sue [email or web address] 08/14/2025 10:00 AM EST Office Visit [address] [address] Morris Fry MD 300 [place] [phone] Dagmar Lopez, PT 10 [place] [address] sue [email or web address] 08/19/2025 11:00 AM EST Office Visit [address] [address] Morris Fry MD 300 [place] [phone] Lashawn Ramirez, PERSONNEL ADMINISTRATOR 10 [place] [address] [email or web address] 08/21/2025 10:45 AM EST Office Visit [facility] 12 [place] [address] Brothkaleb, Morris Snider MD [address] [place] [address] Dagmar Lopez, PT 10 [place] [address] sue [email or web address] 10/03/2025 9:30 AM EST Office Visit [facility] Orthopedics & Sports Medicine [address] [place] [address] Marcio Saba PA-C [address] [place] [address] Orthopedics & Sports [facility], [place] [address] [email or web address] 10/21/2025 Procedure Pass OR Admitting Dept - Virtual Department [address] [place] [address] 10/21/2025 1:47 PM EST Hospital Encounter OR Admitting Dept - Virtual Department [address] [place] [address] Jase Jaime MD [address] [place] [address] Orthopedics Sports [facility], [place], [place] [phone] [email or web address] 10/21/2025 1:47 PM EST - 10/21/2025 4:54 PM EST Surgery OR Admitting Dept - Virtual Department [address] [place] [address] Jase Jaime MD [address] [place] [address] Orthopedics Sports [facility], [place], [place] [phone] [email or web address] ARTHROPLASTY TOTAL KNEE 10/31/2025 10:30 AM EDT Office Visit [facility] Orth[facility]ics & Sports Medicine [address] [place] [address] Marcio Saba PA-C 4 [facility] Orthopedics & Sports Medicine, [place] [address] [email or web address] 12/05/2025 10:15 AM EDT Office Visit [facility] Orth[facility]ics & Sports Medicine [address] [place] [address] Jase Jaime MD [address] [place] [address] Orthopedics & Sports Medicine, [place], [place] [email or web address] Scheduled Procedures Name Priority Associated Diagnoses [...] documented as of this encounter Care Teams Box Blank Machine Operator Helper Relationship Specialty Start Date End Date Alessandro Chang MD [address] [place] [address] PCP - General 06/09/17 Alessandro Chnag MD [address] [place] [address] Historical LMR Provider 06/11/17 2 Isael Romero MD [address] [place] [address] [email or web address] Historical LMR Provider 06/11/17 Cintia Pate PA-C [address] [place] [address] Orthopedics & Sports Medicine, [place] [address] [email or web address] Historical LMR Provider 06/11/17 documented as of this encounter Additional Source Comments The information contained in this document represents components of the legal health record. It is not the complete legal health record.[facility]
--- OUTSIDE RECORDS SUMMARY | 2025-06-23 12:48 | XMS_ITS | Encounter Summary ---
Author Organization [facility] Address [address] [facility] [address] [place] [address] Phone Care Team Providers Care Unhairing Machine Operator Name Role Phone Alessandro Chang MD Primary Care Provider Isael Romero MD Unavailable Cintia Pate PA-C Unavailable Encounter Details Date Type Department Care Team (Latest Contact Info) Description 02/15/2025 Ancillary Orders [address] [phone] Narda Cerna MD [address] [place] [address] Orthopedics & Sports Medicine, [place], [place] [phone] [email or web address] Osteoarthritis of left hip, unspecified osteoarthritis type (Primary Dx) Social History Tobacco Use Types [...] Description 06/24/2025 10:45 AM EST Office Visit [address] [address] Morris Fry MD 300 [place] [phone] Dagmar Lopez, PT 10 [place] [address] sue [email or web address] 06/27/2025 10:15 AM EST Office Visit [address] [address] Morris Fry MD 300 [place] [address] Lashawn Ramirez, ADMINISTRATIVE PROFESSIONAL 10 [place] [address] [email or web address] 07/01/2025 10:15 AM EST Office Visit [address] [address] Morris Fry MD 300 [place] [address] Lashawn Ramirez, ADMINISTRATIVE PROFESSIONAL 10 [place] [address] [email or web address] 07/03/2025 10:00 AM EST Office Visit [address] [address] Morris Fry MD 300 [place] [address] Dagmar Lopez, PT 10 [place] [address] sue [email or web address] 07/08/2025 10:00 AM EST Office Visit [address] [address] Morris Fry MD [address] [place] [phone] Dagmar Lopez, PT 10 [place] [address] sue [email or web address] 07/12/2025 10:15 AM EST Office Visit [address] [address] Morris Fry MD 300 [place] [phone] Lashawn Ramirez, ADMINISTRATIVE PROFESSIONAL 10 [place] [address] [email or web address] 07/15/2025 10:45 AM EST Office Visit [address] [address] Morris Fry MD 300 [place] [phone] Dagmar Lopez, PT 10 [place] [address] sue [email or web address] 07/17/2025 10:45 AM EST Office Visit [address] [address] Morris Fry MD 300 [place] [phone] Dagmar Lopez, PT 10 [place] [address] sue [email or web address] 07/22/2025 11:00 AM EST Office Visit [address] [address] Morris Fry MD 300 [place] [phone] Lashawn Ramirez, ADMINISTRATIVE PROFESSIONAL 10 [place] [address] [email or web address] 07/25/2025 10:45 AM EST Office Visit [address] [address] Morris Fry MD 300 [place] [phone] Dagmar Lopez, PT 10 [place] [address] sue [email or web address] 07/29/2025 10:45 AM EST Office Visit [address] [address] Morris Fry MD 300 [place] [phone] Dagmar Lopez, PT 10 [place] [address] sue [email or web address] 08/01/2025 10:45 AM EST Office Visit [address] [address] Morris Fry MD 300 [place] [phone] Dagmar Lopez, PT 10 [place] [address] sue [email or web address] 08/05/2025 10:15 AM EST Office Visit [address] [address] Morris Fry MD 300 [place] [phone] Lashawn Ramirez, ADMINISTRATIVE PROFESSIONAL 10 [place] [address] [email or web address] 08/08/2025 10:45 AM EST Office Visit [address] [address] Morris Fry MD 300 [place] [phone] Dagmar Lopez, PT 10 [place] [address] sue [email or web address] 08/12/2025 10:45 AM EST Office Visit [address] [address] Morris Fry MD 300 [place] [phone] Dagmar Lopez, PT 10 [place] [address] sue [email or web address] 08/14/2025 10:00 AM EST Office Visit [address] [address] Morris Fry MD 300 [place] [address] Dagmar Lopez, PT 10 [place] [address] sue [email or web address] 08/19/2025 11:00 AM EST Office Visit [address] [address] Morris Fry MD 300 [place] [phone] Lashawn Ramirez, ADMINISTRATIVE PROFESSIONAL 10 [place] [address] [email or web address] 08/21/2025 10:45 AM EST Office Visit [address] [address] Morris Fry MD 300 [place] [address] Dagmar Lopez, PT 10 [place] [address] sue [email or web address] 10/03/2025 9:30 AM EST Office Visit [facility] Orthopedics & Sports Medicine [address] [place] [address] Marcio Saba PA-C 4 [facility], [place] [address] [email or web address] 10/21/2025 Procedure Pass OR Admitting Dept - Virtual Department [address] [place] [address] 10/21/2025 1:47 PM EST Hospital Encounter OR Admitting Dept - Virtual Department [address] [place] [address] Jase Jaime MD [address] [place], [place] [address]s [facility], [place] [address] [email or web address] 10/21/2025 1:47 PM EST - 10/21/2025 4:54 PM EST Surgery OR Admitting Dept - Virtual Department [address] [place] [address] Jase Jaime MD 4 [facility] Sports [facility], [place] [address] [email or web address] ARTHROPLASTY TOTAL KNEE 10/31/2025 10:30 AM EDT Office Visit [facility] Orthopedics & Sports [address] [address] Marcio Saba PA-C 4 [facility] Sports [facility], [place] [address] [email or web address] 12/05/2025 10:15 AM EDT Office Visit [facility] Orthopedics & Sports [address] [address] Jase Jaime MD 4 [facility], [place], [place] [phone] [email or web address] [email or web address] Results Name Type Priority Associated Diagnoses Date /Time FL Guidance Needle Placement Non-Spine Imaging Routine Osteoarthritis of left hip, unspecified osteoarthritis type 02/19/2025 11:22 AM EDT Scheduled Orders Name Type Priority Associated Diagnoses Orde r Schedule FL Guidance Needle Placement Non-Spine Imaging Routine Osteoarthritis of left hip, unspecified osteoarthritis type 1 Occurrences starting 02/15/2025 until 05/18/2025 Scheduled Procedures Name Priority Associated Diagnoses Date/Ti me ARTHROPLASTY TOTAL KNEE Primary osteoarthritis of right knee 10/21/2025 1:47 PM EST documented as of this encounter Visit Diagnoses Diagnosis Osteoarthritis of left hip, unspecified osteoarthritis type- Primary Primary osteoarthritis of right knee documented in this encounter Care Teams Unhairing Machine Operator Relationship Specialty Start Date End Date Alessandro Chang MD [address] [place] [address] PCP - General 06/09/17 Isael Romero MD [address] [place] [address] [email or web address] Historical LMR Provider 06/11/17 Cintia Pate PA-C [address] [place] [address] Orthopedics & Sports Medicine, [place] [address] [email or web address] Historical LMR Provider 06/11/17 documented as of this encounter Additional Source Comments The information contained in this document represents components of the legal health record. It is not the complete legal health record.[facility]
--- OUTSIDE RECORDS SUMMARY | 2025-06-23 12:48 | XMS_ITS | Clinical Summary ---
Author Organization [address] Address [address] [place] [phone] Care Team Providers Care Housekeeper Head Name Role Phone Unavailable Primary Care Provider Unavailabl e Allergies Active Allergy Reactions Criticality Noted Date Comments Codeine 08/28/2014 Latex, Natural Rubber 08/28/2014 Medications aspirin 81 MG EC tablet Take 81 mg by mouth daily. Active levothyroxine (SYNTHROID, LEVOTHROID) 50 MCG tablet Take 50 mcg by mouth daily. Active ATENOLOL ORAL Take 75 mg by mouth daily. Active azaTHIOprine (IMURAN) 50 mg tabletIndication s:Autoimmune hepatitis (HC Code) (HC CODE) TAKE 1 TABLET BY MOUTH DAILY 90 tablet 3 09/14/2016 Active Active Problems Problem Noted Date Diagnosed Date Autoimmune hepatitis (HC Code) 09/22/2012 Social History Tobacco Use Types Packs/Day Years Used Date Smoking Tobacco: Never Assessed Comments Unknown Sex and Gender Information Value Date Recorded Sex Assigned at Not on file Legal Sex Female 8:28 AM EST Gender Identity Not on file Sexual Orientation Not on file Plan of Treatment Health Maintenance Due Date Last Done Comments HIV screening 11/22/1955 Pneumococcal Vaccine (50+ ye ars) (1 of 2 - PCV) 1961 Tetanus adult (Td q 10,TDAP once) 1962 Lipid disorder screening 1982 Diabetes screening 11/22/1987 Shingles vaccine (Shingrix) (1 of 2 - Shingrix (RZV) 2 Dose Standard Series) 1992 RSV Immunization (1 - 1-dose 75+ series) 2017 Influenza vaccine 03/22/2025 Covid-19 vaccine series ( - season) 2025 Osteoporosis screening (bone density) Completed 07/22/2009 Breast cancer screening Discontinued Cervical cancer screening Discontinued Colon cancer screening, Colonoscopy Discontinued Meningococcal B Vaccine Aged Out No l onger eligible based on patient's age to complete this topic Meningococcal Vaccine Aged Out No tapan ivone eligible based on patient's age to complete this topic Procedures Procedure Name Priority Date/Time Associated Diagnosis Comments BONE DENSITY RESULT SCAN Routine 07/22/2009 from Last 3 Months or Most Recently Relevant to Health Maintenance Results * Bone Density Report (07/22/2009) us Provider External IMG SCAN REPORTS Final Result from Last 3 Months or Most Recently Relevant to Health Maintenance Insurance MEDICARE MEDICARE MEDICARE
--- OUTSIDE RECORDS SUMMARY | 2025-06-23 12:48 | XMS_ITS | Encounter Summary ---
Author Organization [facility] Address [address] [place] [phone] Care Team Providers Care Certified Coding Specialist Name Role Phone Unavailable Primary Care Provider Unavailabl e Encounter Details Date Type Department Care Team (Late st Contact Info) Description 03/04/2015 Scanned Document [facility] [address] [place] [address] External, Provider Social History Tobacco Use Types [...] Date/Time Associated Diagnosis Comments LAB SCAN Routine 02/24/2015 documented in this encounter Results * Lab Scan (02/24/2015) Blood specimen (specimen) us Provider External LAB BLOOD ORDERABLES Final Res ult [facility] [place], [place], [facility] documented in this encounter Visit Diagnoses Not on filedocumented in this encounter
--- OUTSIDE RECORDS SUMMARY | 2025-06-23 12:48 | XMS_ITS | Encounter Summary ---
Author Organization [facility] Address [address] [facility] [address] [place] [address] Phone Care Team Providers Care Oiler Bander Name Role Phone Alessandro Chang MD Primary Care Provider Isael Romero MD Unavailable [phone] Cintia Pate PA-C Unavailable [phone] Encounter Details Date Type Department Care Team (Late st Contact Info) Description 04/04/2024 Procedure Pass OR Admitting Dept - Virtual Department 30 [place] [address] Social History Tobacco Use Types Packs/Day Years [...] Description 06/24/2025 10:45 AM EST Office Visit [address] [address] Morris Fry MD 300 [place] [phone] Dagmar Lopez, PT 10 [place] [address] sue [email or web address] 06/27/2025 10:15 AM EST Office Visit [address] [address] Morris Fry MD 300 [place] [address] Lashawn Ramirez, PHARMACIST IN CHARGE 10 [place] [address] [email or web address] 07/01/2025 10:15 AM EST Office Visit [address] [address] Morris Fry MD [address] [place] [phone] Lashawn Ramirez, PHARMACIST IN CHARGE 10 [place] [address] [email or web address] 07/03/2025 10:00 AM EST Office Visit [address] [address] Morris Fry MD [address] [place] [phone] Dagmar Lopez, PT 10 [place] [address] sue [email or web address] 07/08/2025 10:00 AM EST Office Visit [address] [address] Morris Fry MD [address] [place] [phone] Dagmar Lopez, PT 10 [place] [address] sue [email or web address] 07/12/2025 10:15 AM EST Office Visit [address] [address] Morris Fry MD [address] [place] [phone] Lashawn Ramirez, PHARMACIST IN CHARGE 10 [place] [address] [email or web address] 07/15/2025 10:45 AM EST Office Visit [address] [address] Morris Fry MD [address] [place] [phone] Dagmar Lopez, PT 10 [place] [address] sue [email or web address] 07/17/2025 10:45 AM EST Office Visit [address] [address] Morris Fry MD [address] [place] [phone] Dagmar Lopez, PT 10 [place] [address] sue [email or web address] 07/22/2025 11:00 AM EST Office Visit [address] [address] Morris Fry MD [address] [place] [phone] Lashawn Ramirez, PHARMACIST IN CHARGE 10 [place] [address] [email or web address] 07/25/2025 10:45 AM EST Office Visit [address] [address] Morris Fry MD [address] [place] [phone] Dagmar Lopez, PT 10 [place] [address] sue [email or web address] 07/29/2025 10:45 AM EST Office Visit [address] [address] Morris Fry MD [address] [place] [address] Dagmar Lopez, PT 10 [place] [address] sue [email or web address] 08/01/2025 10:45 AM EST Office Visit [address] [address] Morris Fry MD [address] [place] [address] Dagmar Lopez, PT 10 [place] [address] sue [email or web address] 08/05/2025 10:15 AM EST Office Visit [address] [address] Morris Fry MD [address] [place] [phone] Lashawn Ramirez, PHARMACIST IN CHARGE 10 [place] [address] [email or web address] 08/08/2025 10:45 AM EST Office Visit [address] [address] Morris Fry MD [address] [place] [phone] Dagmar Lopez, PT 10 [place] [address] sue [email or web address] 08/12/2025 10:45 AM EST Office Visit [address] [address] Morris Fry MD [address] [place] [phone] Dagmar Lopez, PT 10 [place] [address] sue [email or web address] 08/14/2025 10:00 AM EST Office Visit [address] [address] Morris Fry MD [address] [place] [address] Dagmar Lopez, PT 10 [place] [address] sue [email or web address] 08/19/2025 11:00 AM EST Office Visit [address] [address] Morris Fry MD [address] [place] [phone] Lashawn Ramirez, PHARMACIST IN CHARGE 10 [place] [address] [email or web address] 08/21/2025 10:45 AM EST Office Visit [address] [address] Morris Fry MD [address] [place] [phone] Dagmar Lopez, PT 10 [place] [address] sue [email or web address] 10/03/2025 9:30 AM EST Office Visit [facility] Orthopedics & Sports Medicine [address] [place] [address] Marcio Saba PA-C [address] [place] [address] Orthoped[facility] [place] [place] [address] [email or web address] 10/21/2025 Procedure Pass OR Admitting Dept - Virtual Department [address] [place] [address] 10/21/2025 1:47 PM EST Hospital Encounter OR Admitting Dept - Virtual Department [address] [place] [address] Jase Jaime MD [address] [place] [address] Orthopedics Sports [facility], [place] [address] [email or web address] 10/21/2025 1:47 PM EST - 10/21/2025 4:54 PM EST Surgery OR Admitting Dept - Virtual Department [address] [place] [address] Jase Jaime MD [address] [place] [address] Orthopedics Sports [facility], [place] [address] [email or web address] ARTHROPLASTY TOTAL KNEE 10/31/2025 10:30 AM EDT Office Visit [facility] Orthopedics & Sports Medicine [address] [place] [address] Marcio Saba PA-C [address] [place] [address] Orthopedics Sports [facility], [place] [address] [email or web address] 12/05/2025 10:15 AM EDT Office Visit [facility] Orthopedics & Sports Medicine [address] [place] [address] Jase Jaime MD [address] [place] [address] Orthopedics Sports [facility], [place] [address] [email or web address] Scheduled Procedures Name Priority Associated Diagnoses Date/Ti me ARTHROPLASTY TOTAL KNEE Primary osteoarthritis of right knee 10/21/2025 1:47 PM EST documented as of this encounter Visit Diagnoses Not on filedocumented in this encounter Additional Health Concerns Infection Onset Date Last Indicated Resolved Time CoV-Risk 12/04/2024 12/04/2024 12/15/2024 1:21 AM EDT documented as of this encounter Care Teams Oiler Bander Relationship Specialty Start Date End Date Alessandro Chang MD [address] [place] [address] PCP - General 06/09/17 Isael Romero MD [address] [place] [address] [email or web address] Historical LMR Provider 06/11/17 Cintia Pate PA-C [address] [place] [address] Orthopedics & Sports Medicine, [place] [address] [email or web address] Historical LMR Provider 06/11/17 documented as of this encounter Additional Source Comments The information contained in this document represents components of the legal health record. It is not the complete legal health record.[facility]
--- OUTSIDE RECORDS SUMMARY | 2025-06-23 12:48 | XMS_ITS | Encounter Summary ---
Author Organization [facility] and [facility] Address [address] [place] [address] Care Team Providers Care Image Assembler Name Role Phone Unavailable Primary Care Provider Unavailabl e Encounter Details Date Type Department Care Team ([facility] st Contact Info) Description 03/12/2017 Scanned Document [facility] [address] [facility] [address] [place] [address] External, Provider Social History Tobacco Use Types [...] Date/Time Associated Diagnosis Comments LAB SCAN Routine 03/01/2017 documented in this encounter Results * Lab Scan (03/01/2017) Blood specimen (specimen) us Provider External LAB BLOOD ORDERABLES Final Res ult documented in this encounter Visit Diagnoses Not on filedocumented in this encounter
--- OUTSIDE RECORDS SUMMARY | 2025-06-23 12:48 | XMS_ITS | Encounter Summary ---
Author Organization [facility] and [facility] Address [address] [place] [address] Care Team Providers Care Manager Enterprise Content Management Name Role Phone Unavailable Primary Care Provider Unavailabl e Encounter Details Date Type Department Care Team (Late st Contact Info) Description 06/01/2016 Scanned Document [facility] [address] [facility] [address] [place] [address] External, Provider Social History Tobacco Use Types [...] Date/Time Associated Diagnosis Comments LAB SCAN Routine 05/27/2016 documented in this encounter Results * Lab Scan (05/27/2016) Blood specimen (specimen) us Provider External LAB BLOOD ORDERABLES Final Res ult [facility] [place], [place], [facility] documented in this encounter Visit Diagnoses Not on filedocumented in this encounter
--- OUTSIDE RECORDS SUMMARY | 2025-06-23 12:48 | XMS_ITS | Encounter Summary ---
Author Organization [facility] and [facility] Address [address] [place] [address] Care Team Providers Care Road Traffic Controller Name Role Phone Unavailable Primary Care Provider Unavailabl e Encounter Details Date Type Department Care Team ([facility] st Contact Info) Description 06/30/2017 Scanned Document [facility] [employer] [address] [employer] [address] [place] [address] External, Provider Social History Tobacco Use Types [...] Date/Time Associated Diagnosis Comments LAB SCAN Routine 06/17/2017 documented in this encounter Results * Lab Scan (06/17/2017) Blood specimen (specimen) us Provider External LAB BLOOD ORDERABLES Final Res ult documented in this encounter Visit Diagnoses Not on filedocumented in this encounter
--- OUTSIDE RECORDS SUMMARY | 2025-06-23 12:48 | XMS_ITS | Encounter Summary ---
Author Organization [facility] and [facility] Address [address] [place] [address] Care Team Providers Care Cardiac Tech Name Role Phone Unavailable Primary Care Provider Unavailabl e Encounter Details Date Type Department Care Team ([facility] st Contact Info) Description 08/10/2017 Scanned Document [facility] [address] [facility] [address] [place] [address] External, Provider Social History Tobacco Use Types [...] Date/Time Associated Diagnosis Comments LAB SCAN Routine 07/01/2017 documented in this encounter Results * Lab Scan (07/01/2017) Blood specimen (specimen) us Provider External LAB BLOOD ORDERABLES Final Res ult documented in this encounter Visit Diagnoses Not on filedocumented in this encounter
--- OUTSIDE RECORDS SUMMARY | 2025-06-23 12:48 | XMS_ITS | Encounter Summary ---
Author Organization [facility] Address [address] [facility] [address] [place] [address] Phone Care Team Providers Care Clinical Trials Data Coordinator Name Role Phone Alessandro Chang MD Primary Care Provider Isael Romero MD Unavailable Cintia Pate PA-C Unavailable [phone] Encounter Details Date Type Department Care Team (Late st Contact Info) Description 05/22/2025 Procedure Pass OR Admitting Dept - Virtual Department [address] [place] [address] Social History Tobacco Use Types Packs/Day Years [...] Description 06/24/2025 10:45 AM EST Office Visit [address] [address] Morris Fry MD [address] [place] [phone] Dagmar Lopez, PT 10 [place] [address] sue [email or web address] 06/27/2025 10:15 AM EST Office Visit [address] [address] Morris Fry MD [address] [place] [phone] Lashawn Ramirez, NATIONAL ACCOUNT REPRESENTATIVE 10 [place] [address] [email or web address] 07/01/2025 10:15 AM EST Office Visit [address] [address] Morris Fry MD [address] [place] [phone] Lashawn Ramirez, NATIONAL ACCOUNT REPRESENTATIVE 10 [place] [address] [email or web address] 07/03/2025 10:00 AM EST Office Visit [address] [address] Morris Fry MD [address] [place] [phone] Dagmar Lopez, PT 10 [place] [address] sue [email or web address] 07/08/2025 10:00 AM EST Office Visit [address] [address] Morris Fry MD [address] [place] [phone] Dagmar Lopez, PT 10 [place] [address] sue [email or web address] 07/12/2025 10:15 AM EST Office Visit [address] [address] Morris Fry MD [address] [place] [phone] Lashawn Ramirez, NATIONAL ACCOUNT REPRESENTATIVE 10 [place] [address] [email or web address] 07/15/2025 10:45 AM EST Office Visit [address] [address] Morris Fry MD [address] [place] [phone] Dagmar Lopez, PT 10 [place] [address] sue [email or web address] 07/17/2025 10:45 AM EST Office Visit [address] [address] Morris Fry MD [address] [place] [phone] Dagmar Lopez, PT 10 [place] [address] sue [email or web address] 07/22/2025 11:00 AM EST Office Visit [address] [address] Morris Fry MD [address] [place] [phone] Lashawn Ramirez, NATIONAL ACCOUNT REPRESENTATIVE 10 [place] [address] [email or web address] 07/25/2025 10:45 AM EST Office Visit [address] [address] Morris Fry MD [address] [place] [phone] Dagmar Lopez, PT 10 [place] [address] sue [email or web address] 07/29/2025 10:45 AM EST Office Visit [address] [address] Morris Fry MD [address] [place] [phone] Dagmar Lopez, PT 10 [place] [address] sue [email or web address] 08/01/2025 10:45 AM EST Office Visit [address] [address] Morris Fry MD [address] [place] [phone] Dagmar Lopez, PT 10 [place] [address] sue [email or web address] 08/05/2025 10:15 AM EST Office Visit [address] [address] Morris Fry MD [address] [place] [phone] Lashawn Ramirez, NATIONAL ACCOUNT REPRESENTATIVE 10 [place] [address] [email or web address] 08/08/2025 10:45 AM EST Office Visit [address] [address] Morris Fry MD [address] [place] [phone] Dagmar Lopez, PT 10 [place] [address] sue [email or web address] 08/12/2025 10:45 AM EST Office Visit [address] [address] Morris Fry MD [address] [place] [phone] Dagmar Lopez, PT 10 [place] [address] sue [email or web address] 08/14/2025 10:00 AM EST Office Visit [address] [address] Morris Fry MD [address] [place] [phone] Dagmar Lopez, PT 10 [place] [address] sue [email or web address] 08/19/2025 11:00 AM EST Office Visit [address] [address] Morris Fry MD [address] [place] [phone] Lashawn Ramirez, NATIONAL ACCOUNT REPRESENTATIVE 10 [place] [address] [email or web address] 08/21/2025 10:45 AM EST Office Visit [address] [address] Morris Fry MD [address] [place] [phone] Dagmar Lopez, PT 10 [place] [address] sue [email or web address] 10/03/2025 9:30 AM EST Office Visit [facility] [address] [place] [address] Marcio Saba PA-C [address] [place] [address] [facility] [place] [address] [email or web address] 10/21/2025 Procedure Pass OR Admitting Dept - Virtual Department [address] [place] [address] 10/21/2025 1:47 PM EST Hospital Encounter OR Admitting Dept - Virtual Department [address] [place] [address] Jase Jaime MD [address] [place] [address] Orthopedics & Sports [facility], [place] [address] [email or web address] 10/21/2025 1:47 PM EST - 10/21/2025 4:54 PM EST Surgery OR Admitting Dept - Virtual Department [address] [place] [address] Jase Jaime MD [address] [place] [address] Orthopedics Sports [facility], [place] [address] [email or web address] ARTHROPLASTY TOTAL KNEE 10/31/2025 10:30 AM EDT Office Visit [facility] Medicine [address] [place] [address] Marcio Saba PA-C [address] [place] [address] Orthopedics Sports [facility], [place] [address] [email or web address] 12/05/2025 10:15 AM EDT Office Visit [facility] Medicine [address] [place] [address] Jase Jaime MD [address] [place] [address] Orthopedics Sports [facility], [place] [address] [email or web address] Scheduled Procedures Name Priority Associated Diagnoses Date/Ti me ARTHROPLASTY TOTAL KNEE Primary osteoarthritis of right knee 10/21/2025 1:47 PM EST documented as of this encounter Visit Diagnoses Not on filedocumented in this encounter Care Teams Clinical Trials Data Coordinator Relationship Specialty Start Date End Date Alessandro Chang MD [address] [place], [place] [phone] PCP - General 06/09/17 Isael Romero MD [address] [place] [address] [email or web address] Historical LMR Provider 06/11/17 Cintia Pate PA-C [address] [place] [address] Orthopedics & Sports Medicine, [place] [address] [email or web address] Historical LMR Provider 06/11/17 documented as of this encounter Additional Source Comments The information contained in this document represents components of the legal health record. It is not the complete legal health record.[facility]
--- OUTSIDE RECORDS SUMMARY | 2025-06-23 12:48 | XMS_ITS | Encounter Summary ---
Author Organization [facility] and [facility] Address [address] [place] [phone] Care Team Providers Care Chief Of Pediatric Urology Name Role Phone Unavailable Primary Care Provider Unavailabl e Encounter Details Date Type Department Care Team (Late st Contact Info) Description 09/20/2016 Scanned Document [facility] 40 [facility] [address] [place] [address] External, Provider Social History Tobacco Use Types [...] Date/Time Associated Diagnosis Comments LAB SCAN Routine 08/27/2016 documented in this encounter Results * Lab Scan (08/27/2016) Blood specimen (specimen) us Provider External LAB BLOOD ORDERABLES Final Res ult [facility] [place], [place], [facility] documented in this encounter Visit Diagnoses Not on filedocumented in this encounter
--- OUTSIDE RECORDS SUMMARY | 2025-06-23 12:48 | XMS_ITS | Encounter Summary ---
Author Organization [facility] Address [address] [place] [address] Phone Care Team Providers Care Garnett Machine Operator Helper Name Role Phone Alessandro Chang MD Primary Care Provider Alessandro Chang MD Unavailable [phone] Isael Romero MD Unavailable Cintia Pate PA-C Unavailable Encounter Details Date Type Department Care Team (Late st Contact Info) Description 06/20/2017 Prep for Surgery [facility]ics & Sports Medicine 4 [place], [place] [phone] Isael Romero MD [address] [place] [phone] [email or web address] Social History Tobacco Use Types Packs/Day Years [...] on file documented as of this encounter H&P Notes * Isael Romero MD - 06/20/2017 7:09 AM EDT No change to H&P recently completed and in paper chart. Health of patient stable. Can proceed with planned Right Total Hip Replacement Surgery. documented in this encounter Plan of Treatment Upcoming Encounters Date Type Department Care Team (Latest Contact Info) Description 06/24/2025 10:45 AM EST Office Visit [address] [address] Morris Fry MD [address] [place] [phone] Dagmar Lopez, PT 10 [place] [address] sue [email or web address] 06/27/2025 10:15 AM EST Office Visit [address] [address] Morris Fry MD [address] [place] [phone] Lashawn Ramirez, SEWING DEMONSTRATOR [address] [place] [address] [email or web address] 07/01/2025 10:15 AM EST Office Visit [address] [address] Morris Fry MD [address] [place] [phone] Lashawn Ramirez, SEWING DEMONSTRATOR 10 [place] [address] [email or web address] 07/03/2025 10:00 AM EST Office Visit [address] [address] Morris Fry MD [address] [place] [phone] Dagmar Lopez, PT 10 [place] [address] sue [email or web address] 07/08/2025 10:00 AM EST Office Visit [address] [address] Morris Fry MD [address] [place] Dagmar Lopez, PT 10 [place] [address] sue [email or web address] 07/12/2025 10:15 AM EST Office Visit [address] [address] Morris Fry MD [address] [place] [phone] Lashawn Ramirez, SEWING DEMONSTRATOR 10 [place] [address] [email or web address] 07/15/2025 10:45 AM EST Office Visit [address] [address] Morris Fry MD [address] [place] [address] Dagmar Lopez, PT 10 [place] [address] sue [email or web address] 07/17/2025 10:45 AM EST Office Visit [address] [address] Morris Fry MD [address] [place] [address] Dagmar Lopez, PT 10 [place] [address] sue [email or web address] 07/22/2025 11:00 AM EST Office Visit [address] [address] Morris Fry MD [address] [place] [phone] Lashawn Ramirez, SEWING DEMONSTRATOR 10 [place] [address] [email or web address] 07/25/2025 10:45 AM EST Office Visit [address] [address] Morris Fry MD [address] [place] [phone] Dagmar Lopez, PT 10 [place] [address] sue [email or web address] 07/29/2025 10:45 AM EST Office Visit [address] [address] Morris Fry MD [address] [place] [phone] Dagmar Lopez, PT 10 [place] [address] sue [email or web address] 08/01/2025 10:45 AM EST Office Visit [address] [address] Morris Fry MD 300 [place] [phone] Dagmar Lopez, PT 10 [place] [address] sue [email or web address] 08/05/2025 10:15 AM EST Office Visit [address] [address] Morris Fry MD [address] [place] [phone] Lashawn Ramirez, SEWING DEMONSTRATOR 10 [place] [address] [email or web address] 08/08/2025 10:45 AM EST Office Visit [address] [address] Morris Fry MD 300 [place] [phone] Dagmar Lopez, PT 10 [place] [address] sue [email or web address] 08/12/2025 10:45 AM EST Office Visit [address] [address] Morris Fry MD 300 [place] [phone] Dagmar Lopez, PT 10 [place] [address] sue [email or web address] 08/14/2025 10:00 AM EST Office Visit [address] [address] Morris Fry MD [address] [place] [phone] Dagmar Lopez, PT 10 [place] [address] sue [email or web address] 08/19/2025 11:00 AM EST Office Visit [address] [address] BrothMorris manuel MD [address] [place] [phone] Lashawn Ramirez, SEWING DEMONSTRATOR 10 [place] [address] [email or web address] 08/21/2025 10:45 AM EST Office Visit [address] [address] BrothMorris manuel MD [address] [place] [phone] Dagmar Lopez, PT 10 [place] [address] sue [email or web address] 10/03/2025 9:30 AM EST Office Visit [facility] Medicine [address] [place] [address] Marcio Saba PA-C [address] [place] [address] Orthopedics & Sports Medicine, [facility] [place] [address] [email or web address] 10/21/2025 Procedure Pass OR Admitting Dept - Virtual Department [address] [place] [address] 10/21/2025 1:47 PM EST Hospital Encounter OR Admitting Dept - Virtual Department [address] [place] [address] Jase Jaime MD [address] [place] [address] Orthopedics & Sports Medicine, [place] [address] [email or web address] 10/21/2025 1:47 PM EST - 10/21/2025 4:54 PM EST Surgery OR Admitting Dept - Virtual Department [address] [place] [address] Jase Jaime MD [address] [place] [address] Orthopedics & Sports [facility], [place], [place] [phone] [email or web address] ARTHROPLASTY TOTAL KNEE 10/31/2025 10:30 AM EDT Office Visit [facility] Medicine [address] [place] [address] Marcio Saba PA-C [address] [place] [address] Orthopedics Sports [facility], [place] [address] [email or web address] 12/05/2025 10:15 AM EDT Office Visit [facility] Medicine [address] [place] [address] Jase Jaime MD [address] [place] [address] Orthopedics Sports [facility], [place], [place] [phone] [email or web address] Scheduled Procedures Name Priority Associated [...] documented as of this encounter Care Teams Garnett Machine Operator Helper Relationship Specialty Start Date End Date Alessandro Chang MD [address] [place] [address] PCP - General 06/09/17 Alessandro Chang MD [address] [place] [address] Historical LMR Provider 06/11/17 2 Isael Romero MD [address] [place] [address] [email or web address] Historical LMR Provider 06/11/17 Cintia Pate PA-C [address] [place] [address] Orthopedics & Sports Medicine, [place] [address] [email or web address] Historical LMR Provider 06/11/17 documented as of this encounter Additional Source Comments The information contained in this document represents components of the legal health record. It is not the complete legal health record.[facility]
--- OUTSIDE RECORDS SUMMARY | 2025-06-23 12:48 | XMS_ITS | Encounter Summary ---
Author Organization [facility] Address [address] [place] [address] Phone Care Team Providers Care Manager Social Work Name Role Phone Alessandro Chang MD Primary Care Provider Alessandro Chang MD Unavailable [phone] Isael Romero MD Unavailable Cintia Pate PA-C Unavailable Encounter Details Date Type Department Care Team (Latest Contact Info) Description 06/11/2017 Ancillary Orders [facility] Orthopedics & Sports Medicine [address] [place] [address] Cintia Pate PA-C [address] [place] [address] Orthopedics & Sports Medicine, [place], [place] [phone] [email or web address] Status post revision of total hip Social History Tobacco Use Types Packs/Day Years [...] Description 06/24/2025 10:45 AM EST Office Visit [facility] [address] [place] [address] Morris Fry MD [address] [place] [phone] Dagmar Lopez, PT 10 [place] [address] sue [email or web address] 06/27/2025 10:15 AM EST Office Visit [address] [address] Morris Fry MD [address] [place] [address] Lashawn Ramirez, OPERATIONS GENERAL AGENT 10 [place] [address] [email or web address] 07/01/2025 10:15 AM EST Office Visit [address] [address] Morris Fry MD [address] [place] [phone] Lashawn Ramirez, OPERATIONS GENERAL AGENT 10 [place] [address] [email or web address] 07/03/2025 10:00 AM EST Office Visit [address] [address] Morris Fry MD [address] [place] [address] Dagmar Lopez, PT 10 [place] [address] sue [email or web address] 07/08/2025 10:00 AM EST Office Visit [address] [address] Morris Fry MD [address] [place] [phone] Dagmar Lopez, PT 10 [place] [address] sue [email or web address] 07/12/2025 10:15 AM EST Office Visit [address] [address] Morris Fry MD [address] [place] [phone] Lashawn Ramirez, OPERATIONS GENERAL AGENT 10 [place] [address] [email or web address] 07/15/2025 10:45 AM EST Office Visit [address] [address] Morris Fry MD [address] [place] [address] Dagmar Lopez, PT 10 [place] [address] sue [email or web address] 07/17/2025 10:45 AM EST Office Visit [address] [address] Morris Fry MD [address] [place] [address] Dagmar Lopez, PT 10 [place] [address] sue [email or web address] 07/22/2025 11:00 AM EST Office Visit [address] [address] Morris Fry MD [address] [place] [address] Lashawn Ramirez, OPERATIONS GENERAL AGENT 10 [place] [address] [email or web address] 07/25/2025 10:45 AM EST Office Visit [address] [address] Morris Fry MD [address] [place] [address] Dagmar Lopez, PT 10 [place] [address] sue [email or web address] 07/29/2025 10:45 AM EST Office Visit [address] [address] Morris Fry MD [address] [place] [address] Dagmar Lopez, PT [address] [place] [address] sue [email or web address] 08/01/2025 10:45 AM EST Office Visit [address] [address] Morris Fry MD [address] [place] [address] Dagmar Lopez, PT 10 [place] [address] sue [email or web address] 08/05/2025 10:15 AM EST Office Visit [address] [address] Morris Fry MD [address] [place] [address] Lashawn Ramirez, OPERATIONS GENERAL AGENT 10 [place] [address] [email or web address] 08/08/2025 10:45 AM EST Office Visit [address] [address] Morris Fry MD [address] [place] [phone] Dagmar Lopez, PT 10 [place] [address] sue [email or web address] 08/12/2025 10:45 AM EST Office Visit [address] [address] Morris Fry MD [address] [place] [address] Dagmar Lopez, PT 10 [place] [address] sue [email or web address] 08/14/2025 10:00 AM EST Office Visit [address] [address] Morris Fry MD [address] [place] [address] Dagmar Lopez, PT 10 [place] [address] sue [email or web address] 08/19/2025 11:00 AM EST Office Visit [address] [address] Morris Fry MD [address] [place] [phone] JaydaLashawn hoskins, OPERATIONS GENERAL AGENT 10 [place] [address] [email or web address] 08/21/2025 10:45 AM EST Office Visit [facility] 12 [place] [address] Brothers, Morris Snider MD [address] [place] [address] Dagmar Lopez, PT 10 [place] [address] sue [email or web address] 10/03/2025 9:30 AM EST Office Visit [facility] Orthopedics & Sports Medicine [address] [place] [address] Marcio Saba PA-C [address] [place] [address] Orthopedics & Sports [facility], [place] [address] [email or web address] 10/21/2025 Procedure Pass OR Admitting Dept - Virtual Department [address] [place] [address] 10/21/2025 1:47 PM EST Hospital Encounter OR Admitting Dept - Virtual Department [address] [place] [address] Jase Jaime MD [address] [place] [address] Orthopedics & Sports [facility], [place] [address] [email or web address] 10/21/2025 1:47 PM EST - 10/21/2025 4:54 PM EST Surgery OR Admitting Dept - Virtual Department [address] [place] [address] Jase Jaime MD [address] [place] [address] Orthopedics Sports [facility], [place], [place] [phone] [email or web address] ARTHROPLASTY TOTAL KNEE 10/31/2025 10:30 AM EDT Office Visit [facility] Orthopedics & Sports Medicine [address] [place] [address] Marcio Saba PA-C [address] [place] [address] Orthopedics & Sports [facility], [place], [place] [phone] [email or web address] 12/05/2025 10:15 AM EDT Office Visit [facility] Orthopedics & Sports Medicine [address] [place] [address] Jase Jaime MD [address] [place] [address] Orthopedics Sports [facility], [place], [place] [phone] [email or web address] Scheduled Procedures Name Priority Associated Diagnoses Date/Ti me ARTHROPLASTY TOTAL KNEE Primary osteoarthritis of right knee 10/21/2025 1:47 PM EST documented as of this encounter Results * XR HIP 1 VW RIGHT PLUS PELVIS (07/06/2017 12:26 PM EST) Narrative Petrona Kilgore - 07/06/2017 12:27 PM EST This image report has been auto-finalized and has not been read by a Radiologist. Interpretation has been included in the provider encounter note for this date of service. 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 of right knee documented in this encounter Additional Health Concerns Infection Onset Date Last Indicated Resolved Time CoV-Risk 06/25/2023 06/25/2023 07/06/2023 1:22 AM EST CoV-Risk 12/04/2024 12/04/2024 12/15/2024 1:21 AM EDT documented as of this encounter Care Teams Manager Social Work Relationship Specialty Start Date End Date Alessandro Chang MD [address] [place] [address] PCP - General 06/09/17 Alessandro Chang MD [address] [place] [address] Historical LMR Provider 06/11/17 2 Isael Romero MD [address] [place] [address] [email or web address] Historical LMR Provider 06/11/17 Cintia Pate PA-C [address] [place] [address] Orthopedics & Sports Medicine, [place] [address] [email or web address] Historical LMR Provider 06/11/17 documented as of this encounter Additional Source Comments The information contained in this document represents components of the legal health record. It is not the complete legal health record.[facility]
--- OUTSIDE RECORDS SUMMARY | 2025-06-23 12:48 | XMS_ITS | Encounter Summary ---
Author Organization [facility] Address [address] [place] [address] Care Team Providers Care Fisher Swordfish Name Role Phone Unavailable Primary Care Provider Unavailabl e Encounter Details Date Type Department Care Team (Late st Contact Info) Description 02/18/2022 Scanned Document [facility] SCHEDULING [address] [place], [place] [phone] Ernestine Mack MD [address] [phone] Social History Tobacco Use Types Packs/Day [...] Procedure Name Priority Date/Time Associated Diagnosis Comments PT/INR AND PTT (BH GH L YH) Routine 02/17/2022 CBC AND DIFFERENTIAL Routine 02/17/2022 BASIC METABOLIC PANEL Routine 02/17/2022 documented in this encounter Results * Basic metabolic panel (02/17/2022) Blood Ernestine Mack MD LAB BLOOD ORDERABLES Final Result * PT/INR and PTT (BH GH L LMW YH) (02/17/2022) Blood Ernestine Mack MD LAB BLOOD ORDERABLES Final Result * CBC and differential (02/17/2022) Blood us Ernestine Mack MD LAB BLOOD ORDERABLES Final Result documented in this encounter Visit Diagnoses Not on filedocumented in this encounter
--- OUTSIDE RECORDS SUMMARY | 2025-06-23 12:48 | XMS_ITS | Encounter Summary ---
Author Organization [facility] and [facility] Address [address] [place] [phone] Care Team Providers Care Circular Stuffer Name Role Phone Unavailable Primary Care Provider Unavailabl e Encounter Details Date Type Department Care Team ([facility] st Contact Info) Description 12/02/2017 Scanned Document [facility] [address] [place] [address] Ernestine Mack MD [address] [place] [phone] Social History Tobacco Use Types Packs/Day [...] Date/Time Associated Diagnosis Comments LAB SCAN Routine 07/28/2017 documented in this encounter Results * Lab Scan (07/28/2017) Blood specimen (specimen) us Ernestine Mack MD LAB BLOOD ORDERABLES Final Result documented in this encounter Visit Diagnoses Not on filedocumented in this encounter
--- OUTSIDE RECORDS SUMMARY | 2025-06-23 12:48 | XMS_ITS | Encounter Summary ---
Author Organization [facility] Address [facility] [employer] [address] [address] Phone Care Team Providers Care Cherry Sorter Name Role Phone Alessandro Chang MD Primary Care Provider Isael Romero MD Unavailable Cintia Pate PA-C Unavailable Encounter Details Date Type Department Care Team (Late st Contact Info) Description 06/14/2022 Procedure Pass OR Admitting Dept - Virtual Department [address] [place] [address] Social History Tobacco Use Types Packs/Day Years [...] Description 06/24/2025 10:45 AM EST Office Visit [facility] [address] [place] [address] BrothMorris manuel MD [address] [place], [place] [address]blanca [place] [phone] Dagmar Lopez, PT [address] [place] [address] sue [email or web address] 06/27/2025 10:15 AM EST Office Visit [address] [address] Morris Fry MD [address] [place] [phone] Lashawn Ramirez, CORK INSULATION INSTALLER [address] [place] [address] [email or web address] 07/01/2025 10:15 AM EST Office Visit [address] [address] Morris Fry MD [address] [place] [phone] Lashawn Ramirez, CORK INSULATION INSTALLER [address] [place] [address] [email or web address] 07/03/2025 10:00 AM EST Office Visit [address] [address] Morris Fry MD [address] [place] [phone] Dagmar Lopez, PT [address] [place] [address] sue [email or web address] 07/08/2025 10:00 AM EST Office Visit [address] [address] Morris Fry MD [address] [place] [phone] Dagmar Lopez, PT [address] [place] [address] sue [email or web address] 07/12/2025 10:15 AM EST Office Visit [address] [address] Morris Fry MD [address] [place] [phone] Lashawn Ramirez, CORK INSULATION INSTALLER [address] [place] [address] [email or web address] 07/15/2025 10:45 AM EST Office Visit [address] [address] Morris Fry MD [address] [place] [phone] Dagmar Lopez, PT [address] [place] [address] sue [email or web address] 07/17/2025 10:45 AM EST Office Visit [address] [address] Morris Fry MD [address] [place] [phone] Dagmar Lopez, PT [address] [place] [address] sue [email or web address] 07/22/2025 11:00 AM EST Office Visit [address] [address] Morris Fry MD [address] [place] [phone] Lashawn Ramirez, CORK INSULATION INSTALLER [address] [place] [address] [email or web address] 07/25/2025 10:45 AM EST Office Visit [address] [address] Morris Fry MD [address] [place] [address] Dagmar Lopez, PT [address] [place] [address] sue [email or web address] 07/29/2025 10:45 AM EST Office Visit [address] [address] Morris Fry MD [address] [place] [phone] Dagmar Loepz, PT [address] [place] [address] sue [email or web address] 08/01/2025 10:45 AM EST Office Visit [address] [address] Morris Fry MD [address] [place] [phone] Dagmar Lopez, PT [address] [place] [address] sue [email or web address] 08/05/2025 10:15 AM EST Office Visit [address] [address] Morris Fry MD [address] [place] [address] Lashawn Ramirez, CORK INSULATION INSTALLER [address] [place] [address] [email or web address] 08/08/2025 10:45 AM EST Office Visit [address] [address] Morris Fry MD [address] [place] [phone] Dagmar Lopez, PT [address] [place] [address] sue [email or web address] 08/12/2025 10:45 AM EST Office Visit [address] [address] Morris Fry MD [address] [place] [phone] Dagmar Lopez, PT [address] [place] [address] sue [email or web address] 08/14/2025 10:00 AM EST Office Visit [address] [address] Morris Fry MD [address] [place] [phone] Dagmar Lopez, PT [address] [place] [address] sue [email or web address] 08/19/2025 11:00 AM EST Office Visit [address] [address] Morris Fry MD [address] [place] [phone] Lashawn Ramirez, CORK INSULATION INSTALLER [address] [place] [address] [email or web address] 08/21/2025 10:45 AM EST Office Visit [facility] [address] [place] [address] Brothers, Morris Snider MD [address] [place] [phone] WilliDagmar arnold, PT 10 [place] [address] seu [email or web address] 10/03/2025 9:30 AM EST Office Visit [facility] Orthopedics & Sports Medicine [address] [place] [address] Marcio Saba PA-C [address] [place] [address] Orthopedics & Sports Medicine, [place] [address] [email or web address] 10/21/2025 Procedure Pass OR Admitting Dept - Virtual Department [address] [place] [address] 10/21/2025 1:47 PM EST Hospital Encounter OR Admitting Dept - Virtual Department [address] [place] [address] Jase Jaime MD [address] [place] [address] Orthopedics & Sports [facility], [place] [address] [email or web address] 10/21/2025 1:47 PM EST - 10/21/2025 4:54 PM EST Surgery OR Admitting Dept - Virtual Department [address] [place] [address] Jase Jaime MD [address] [place] [address] Orthopedics Sports [facility], [place], [place] [phone] [email or web address] ARTHROPLASTY TOTAL KNEE 10/31/2025 10:30 AM EDT Office Visit [facility] Orthopedics & Sports Medicine [address] [place] [address] Marcio Saba PA-C 4 [facility] Orthopedics & Sports [facility], [place] [address] [email or web address] 12/05/2025 10:15 AM EDT Office Visit [facility] Orthopedics & Sports Medicine [address] [place] [address] [phone] Jase Jaime MD [address] [place] [address] Orthopedics Sports [facility], [place], [place] [phone] [email or web address] Scheduled Procedures Name Priority Associated [...] documented as of this encounter Care Teams Cherry Sorter Relationship Specialty Start Date End Date Alessandro Chang MD [address] [place] [address] PCP - General 06/09/17 Isael Romero MD [address] [place] [address] [phone] [email or web address] Historical LMR Provider 06/11/17 Cintia Pate PA-C [address] [place] [address] Orthopedics Sports [facility], [place], [place] [phone] [email or web address] Historical LMR Provider 06/11/17 documented as of this encounter Additional Source Comments The information contained in this document represents components of the legal health record. It is not the complete legal health record.[facility]
--- OUTSIDE RECORDS SUMMARY | 2025-06-23 12:48 | XMS_ITS | Encounter Summary ---
Author Organization [facility] and [facility] Address [address] [place] [address] Care Team Providers Care Spice [employer] Name Role Phone Unavailable Primary Care Provider Unavailabl e Encounter Details Date Type Department Care Team (Late st Contact Info) Description 12/13/2016 Scanned Document [facility] [address] [place] [address] External, Provider Social History Tobacco Use Types [...] Date/Time Associated Diagnosis Comments LAB SCAN Routine 11/29/2016 documented in this encounter Results * Lab Scan (11/29/2016) Blood specimen (specimen) us Provider External LAB BLOOD ORDERABLES Final Res ult documented in this encounter Visit Diagnoses Not on filedocumented in this encounter
--- OUTSIDE RECORDS SUMMARY | 2025-06-23 12:48 | XMS_ITS | Encounter Summary ---
Author Organization [facility] and [facility] Address [address] [place] [phone] Care Team Providers Care Machine I Engraver Name Role Phone Unavailable Primary Care Provider Unavailabl e Encounter Details Date Type Department Care Team (Late st Contact Info) Description 11/10/2020 Scanned Document [facility] [address] [place] [address] [place] [address] Ernestine Mack MD [address] [place] [phone] Social History Tobacco Use Types Packs/Day [...] Date/Time Associated Diagnosis Comments LAB SCAN Routine 11/06/2020 documented in this encounter Results * Lab Scan (11/06/2020) us Ernestine Mack MD LAB BLOOD ORDERABLES Final Result documented in this encounter Visit Diagnoses Not on filedocumented in this encounter
--- OUTSIDE RECORDS SUMMARY | 2025-06-23 12:48 | XMS_ITS | Data Portability ---
Author Organization [employer] , autoContract - [facility] Address [address], [facility] [address] [place] [address] Assessment Encounter Date Assessment Date Assessment LastModified by Organization Details LastModified Time 05/09/2025 05/09/2025 DATE OF SURGERY: 05/27/2025 ADMITTING DIAGNOSIS: Osteoarthritis LEFT hip REASON FOR ADMISSION: Left total hip arthroplasty at [facility] SURGEON: Dr. Fry HISTORY: The patient presents today at the request of their surgeon for a preoperative history and physical examination, with the goal of risk assessment and medical optimization prior to surgery. This is a 84-year-old female who complains of hip pain related to osteoarthritis. The patient has failed conservative measures, their joint pain is having a significant impact on their daily activities and joint replacement is now planned. 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 Has not had any recent symptoms. White coat syndrome without hypertension - brought in a BP log that we reviewed and number were satisfactory. 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 Was followed by doc in [place], no longer followed by them. Bilateral cataracts CMV (cytomegalovirus) infection Fuchs' corneal dystrophy Hypothyroidism - on thyroxine supplementation - s/p right hemithyroidectomy Osteopenia PAST SURGICAL HISTORY: Left total knee arthroplasty with Dr. Jaime 2022 Right total hip arthoplasty Corneal transplant Cholecystectomy Right hemithyroidectomy Liver biopsy Left breast lumpectomy Patient denies previous surgical or anesthetic complications, Difficulties with intubation or Family history of anesthesia problems. PERTINENANT FAMILY HISTORY: None MEDICATIONS: atenolol 50 mg oral tablet, 1.5 tablet, By Mouth, Daily, 1 refills AM Calcium 600 +D oral tablet, 1 tablet, By Mouth, 2 times a day levothyroxine oral 50 mcg tablet, 1 tablet, By Mouth, Daily AM LORazepam 0.5 mg oral tablet, See Instructions, 3 refills PRN prednisolone ophthalmic acetate 1% suspension, 1 drops RIGHT EYE AM ASA 81 mg daily Docusate ALLERGIES: Egg Allergy Feldene Latex (hives) Other Environmental Allergy (Seasonal) codeine (GI upset) SOCIAL HISTORY: Tobacco: none Alcohol: occassional wine Other substance use: none She is retired and lives at home alone. She has support for post op. REVIEW OF SYSTEMS Constitutional: No weight change, No fever, No chills, No night sweats HEENT / DENTAL: no changes in vision, hearing: no changes, no dental concerns Cardiovascular: No chest pain, No palpitations, No dyspnea on exertion, No peripheral edema, Respiratory: No shortness of breath, No cough, No sputum production. Gastrointestinal: No nausea, No vomiting, No Heartburn, No dysphagia, No diarrhea, No abdominal pain, No Black stools or rectal bleeding Genitourinary: No urinary changes Neurologic: No headache, -dizziness, - vertigo Musculoskeletal: No back pain, No Neck pain, + joint pain hip pain Psychiatric: No mood complaints Skin: No rash or open wounds PHYSICAL EXAM GENERAL: No acute distress, alert. SKIN: Warm, no rashes. HEENT: Supple, no masses. Conjunctiva clear, PERRL. No nasal discharge, hearing intact. Airway: Note Mallampati class I LUNGS: Non l abored respirations. Lungs CTA b/L CARDIOVASCULAR: Regular rhythm, no edema. No R/G/M MUSCULOSKELETAL: Antalgic Gait, hip pain with ROM NEUROLOGIC: CN II X II intact. DIAGNOSTIC STUDIES: Orthopedic X-ray: End stage hip osteoarthritis EKG Ventricular Rate: 88 BPM Normal sinus rhythm Normal ECG When compared with ECG of 28-Feb-2023 09:25, No significant change was found Confirmed by Alessandro Gutierrez ([id number]) on 05/06/2025 2:54:33 PM LABORATORY DATA: 05/06/25 CBC: WNL BMP: Na 133 K 4.6 BUN/Cr 18/0.6 GFR 88 A1C: 5.3 Coags: WNL TSH on 09/04/24 - 1.64 WNL ASSESSMENT AND PLAN: The patient has end stage osteoarthritis of the left hip and is now scheduled for left hip replacement surgery. This patient has no absolute medical contraindication to proceeding with surgery. See Below for Assessment and Recommendations. Specific Anesthesia Concerns: NONE The patient is an ASA Class: III Surgical Procedural Risk: Intermediate CARDIAC EVALUATION: The patient is at Low Cardiac Ischemic Risk of Complications. The patients GSCRI Score is 0.7% , they have a Good FUNCTIONAL CAPACITY, and according to the patients DASI score, they can perform 6 Mets without cardio-pulmonary complaints. She is independant doing her own ADLs and IADL's. She volunteers at [employer], was walking until hip starting hurting in November. Goes to the gym and does light weights. This meets ACC/AHA guidelines for proceeding to non-cardiac surgery without additional testing. SVT - Patient denies symptomology - Recommend: Consider telemetry monitoring for 24 4 8h post-op in high-risk patients - Continue Rate/Rhythm medication without interruption White Coat Hypertension: Blood pressure is elevated but acceptable. She was expecting this and brought in her home BP log that we reviewed. Her BP this a.m. was 128/84. She will take her Atenolol the A.M. of surgery. PULMONARY EVALUATION: LowRisk - ARISCAT Score: 3points - Airway: Mallampati Score: I - The patient has the following intrinsic pulmonary disease: None - Post Operative Recommendations: Early mobilization, Incentive spirometry, Pulmonary toilet, Pain control with Epidurals or nerve blocks if possible. - CONCEPCION risk STOP BANG Score : Low Risk CONCEPCION - Recommendations: None HEMATOLOGIC EVALUATION - Surgical Bleeding Risk: Elevated: - Patient Bleeding Risk: Average VTE Prophylaxis/Thrombo tic risk: - Joint Replacement Surgery is elevated thrombotic risk - VTE Prophylaxis Recommendations: 4 weeks of post operative Chemical prophylaxis with: Aspirin ENDOCRINE EVALUATION: No Concerns - Hypothyroidism: Stable, last TSH on 09/04/24 was WNL. - Patient instructed to take their Levothyroxine the morning of surgery. RENAL RISK: Low HEPATIC RISK: Low - Autoimmune hepatitis d/t food poising in 2008 - no mcc complications, no longer follows with specialist GERIATRIC RISK ASSESSMENT (Ages > 64) Frailty assessment by Clinical Frailty Scale: Not Frail - No additional work up advised. Mobility/falls Fall Risk by Campos Fall Scale: Moderate Risk: Increased surveillance; consider fall precautions. Nutrition Risk by Mini Nutritional Assessment: Normal nutritional status. Delirium risk factors by Maracantonio Clnical Prediction Rule: Given patients age, she may be at:Moderate to High Risk: Implement multicomponent delirium prevention protocols: Orientation aids (clocks, calendars), sleep hygiene (avoid nighttime interruptions, non-pharmacologic aids), Early mobilization, Adequate pain control with multimodal strategies (Minimize deliriogenic medications such as benzodiazepines, anticholinergics, opioids), Maintain hydration and nutrition, Consider constant grab setter or family member at bedside for the first 24 hours after the surgery. MEDICATION RECOMMENDATION Summary: Medications to be taken the morning of surgery: Atenolol Levothyroxine Special Medication Recommendations: NONE SUMMARY Kylah/Post Op Medication Recommendations: IV TXA Intraoperatively ASA DVT prophylaxis for 4 weeks post operatively Pantoprazole for GI protection while on A/C Patients own bowel rx for constipation prophylaxis Celebrex for post op inflammation Narcotics: Tramadol, Oxycodone MONITORING RECOMMENDATIONS: Tele DISCHARGE DISPOSITION: Home with services, possible same day discharge POST OP PRESCRIPTIONS PROVIDED BY SURGICAL TEAM UPON DISCHARGE: Tramadol Oxycodone Celebrex ASA Pantoprazole POST OP CONTACT: [place] [phone] Thank you for referring your patient to [facility] for preoperative risk assessment. Please do not hesitate to reach out should you have any questions or if we can be of further service to you or your patients. Warm regards, Jackelin Watson-KAMINI Gillis Total time spent: 60 minutes today reviewing the chart/medical records, speaking with the patient, formulating and discussing the treatment plan, and documenting the findings and encounter. [email or web address] Not available 05/09/2025 16:45:30 Plan of Treatment Reminders Order Date Submit Date Provider Last Modified By Organization Details Last Modified Time Details Appointments None record ed. Lab None record ed. Referral None record ed. Procedures None record ed. Surgeries None record ed. Imaging None record ed. Medication Orders None record ed. Patient TargetsNo targets recorded. Patient InstructionsNo instructions recorded. Reason for Referral None Reported. Medical Equipment None Reported. Medications Name Sig Start Date Stop Date Status Note LastModified by Organization Details LastModified Time trazodone 50 mg tablet TAKE 1 TO 3 TABLETS BY MOUTH AT BEDTIME WITH FOOD active Not Available Not Available No t Available prednisolon e acetate 1 % eye drops,suspe nsion ADMINISTE R 1 DROP INTO THE RIGHT EYE FOUR TIMES A DAY active Not Available Not Available No t Available lorazepam 0.5 mg tablet TAKE ONE TABLET BY MOUTH TWICE A DAY NEEDED FOR ANXIETY active Not Available Not Available No t Available levothyroxi ne 50 mcg tablet TAKE ONE TABLET BY MOUTH EVERY DAY active Not Available Not Available No t Available atenolol 50 mg tablet TAKE 1.5 TABLETS BY MOUTH ONCE DAILY active Not Available Not Available No t Available tobramycin 0.3 %-dexametha sone 0.1 % eye drops,suspe nsion ADMINISTE R 1-2 DROPS INTO THE RIGHT EYE FOUR TIMES A DAY 05/09 completed Not Available Not Available Not Available Vitals Date Recorded Heart rate Oxygen saturation Oxygen saturation in Arterial blood by Pulse oximetry Body temperature Body weight Body mass index (BMI) Body height Systolic And Diastolic Provider Name and Address Organization Details Last Updated DateTime 5 73 /min 98 % 98 % 97.5 [degF] 30951 g 25.3 kg/m2 167.64 cm 165/97 mm[Hg] Eloise Beckby [employer]ERAT[employer]Z RAYMON GARCIACLIFFE 5 11:10:47 Social History None recorded. Functional Status None recorded. Mental Status None recorded. Family History Nothing Reported. Medical History No medical history recorded. Gynecological HistoryNo gynecological history recorded. Obstetrics History GPAL:G 0 P 0 0 0 0 Past Encounters Encounter ID Performer Location Encounter Start Date Encounter Closed Date Diagnosis/Indication Diagnosis SNOMED-CT Code Diagnosis ICD10 Code Diagnosis IMO Codes Diagnosis Note [id number] Michael May MD [address] [place] [address] 05/09/2025 10:53:40 05/09/2025 12:24:30 Preprocedural examination done 7098613245 55733 Z01.818 090994 Osteoarthr itis of left hip joint 6478585414 28645 M16.12 1575220 Supraventr icular tachycardia 8992559 I47.10 14726 Autoimmune hepatitis 408 800882 K75.4 208243 Acquired hypothyroidism 657251628 E03.9 19338 Labile hyp ertension due to being in a clinical environment 536429316 R03.0 [id number] Health Concerns Section Related Observation LastModified by Organization Detai ls LastModified Time None Recorded Concern Status LastModified by Organization Details LastModified Time None Recorded Advance Directives Directive None Recorded Payers Insurance Date Sequence Insurance Name Policy Number Policy Barboza Covered Member ID Barboza Member ID Guarantor Name 05/16/2025 1 [place] [employer] [place] Pee Richards [id number] Pee Richards 05/16/2025 2 [place] [id number] Pee Richards [id number] Pee Richards Notes Date Note Type Note Provider Name and Address Organization Details Recorded Time 05/09/2025 text/html Preop HPIReporte d by Patient Patient presents today for pre-operative evaluation. JACKELIN WATSON-CHICHI GILLIS [address] [facility] [address], [place], [address], [employer]ER[employer] - RAYMON BOTELLO 05/09/2025 16:45:54 OBGyn Episode No OBEpisode recorded.
--- OUTSIDE RECORDS SUMMARY | 2025-06-23 12:48 | XMS_ITS | Encounter Summary ---
Author Organization [facility] and [facility] Address [address] [place] [phone] Care Team Providers Care Local Sales Associate Name Role Phone Unavailable Primary Care Provider Unavailabl e Encounter Details Date Type Department Care Team ([facility] st Contact Info) Description 12/06/2017 Scanned Document [facility] [address] [address] Ernestine Mack MD [address] [place] [phone] Social History Tobacco Use Types Packs/Day [...] Date/Time Associated Diagnosis Comments LAB SCAN Routine 11/22/2017 documented in this encounter Results * Lab Scan (11/22/2017) Blood specimen (specimen) us Ernestine Mack MD LAB BLOOD ORDERABLES Final Result documented in this encounter Visit Diagnoses Not on filedocumented in this encounter
--- OUTSIDE RECORDS SUMMARY | 2025-06-23 12:48 | XMS_ITS | Encounter Summary ---
Author Organization [facility] Address [address] [facility] [address] [place] [address] Phone Care Team Providers Care Paint Spray Tender Name Role Phone Alessandro Chang MD Primary Care Provider Isael Romero MD Unavailable Cintia Pate PA-C Unavailable [phone] Encounter Details Date Type Department Care Team (Late st Contact Info) Description 03/08/2023 Ancillary Orders [address] [phone] Marcio Saba PA-C [address] [place] [address] Orthopedics & Sports Medicine, [place], [place] [phone] [email or web address] Left knee pain, unspecified chronicity Social History Tobacco Use Types Packs/Day Years [...] Description 06/24/2025 10:45 AM EST Office Visit [address] [address] Morris Fry MD [address] [place] [phone] Dagmar Lopez, PT [address] [place] [address] [email or web address] 06/27/2025 10:15 AM EST Office Visit [address] [address] Morris Fry MD [address] [place] [phone] Lashawn Ramirez, DOLL EYE SETTER [address] [place] [address] [email or web address] 07/01/2025 10:15 AM EST Office Visit [address] [address] Morris Fry MD [address] [place] [phone] Lashawn Ramirez, DOLL EYE SETTER [address] [place] [phone] [email or web address] 07/03/2025 10:00 AM EST Office Visit [address] [address] Morris Fry MD [address] [place] [phone] Dagmar Lopez, PT [address] [place] [address] [email or web address] 07/08/2025 10:00 AM EST Office Visit [address] [address] Morris Fry MD [address] [place], [place] Dagmar Lopez, PT [address] [place] [address] [email or web address] 07/12/2025 10:15 AM EST Office Visit [address] [address] Morris Fry MD [address] [place] [phone] Lashawn Ramirez, DOLL EYE SETTER [address] [place] [address] [email or web address] 07/15/2025 10:45 AM EST Office Visit [address] [address] Morris Fry MD [address] [place], [place] Dagmar Lopez, PT [address] [place] [address] [email or web address] 07/17/2025 10:45 AM EST Office Visit [address] [address] Morris Fry MD [address] [place] [phone] Dagmar Lopez, PT [address] [place] [address] [email or web address] 07/22/2025 11:00 AM EST Office Visit [address] [address] Morris Fry MD [address] [place] [phone] Lashawn Ramirez, DOLL EYE SETTER [address] [place] [address] [email or web address] 07/25/2025 10:45 AM EST Office Visit [address] [address] Morris Fry MD [address] [place] [phone] Dagmar Lopez, PT [address] [place] [address] [email or web address] 07/29/2025 10:45 AM EST Office Visit [address] [address] Morris Fry MD [address] [place] [phone] Dagmar Lopez, PT [address] [place] [address] [email or web address] 08/01/2025 10:45 AM EST Office Visit [address] [address] Morris Fry MD [address] [place] [phone] Dagmar Lopez, PT [address] [place] [address] [email or web address] 08/05/2025 10:15 AM EST Office Visit [address] [address] Morris Fry MD [address] [place] [phone] Lashawn Ramirez, DOLL EYE SETTER [address] [place] [address] [email or web address] 08/08/2025 10:45 AM EST Office Visit [address] [address] Morris Fry MD [address] [place] [phone] Dagmar Lopez, PT [address] [place] [address] [email or web address] 08/12/2025 10:45 AM EST Office Visit [address] [address] Morris Fry MD [address] [place] [phone] Dagmar Lopez, PT [address] [place] [address] [email or web address] 08/14/2025 10:00 AM EST Office Visit [address] [address] Morris Fry MD [address] [place] [phone] Dagmar Lopez, PT [address] [place] [address] [email or web address] 08/19/2025 11:00 AM EST Office Visit [address] [address] BrothMorris manuel MD [address] [place] [phone] Lashawn Ramirez, DOLL EYE SETTER [address] [place] [address] [email or web address] 08/21/2025 10:45 AM EST Office Visit [address] [address] BrothMorris manuel MD [address] [place] [phone] Dagmar Lopez, PT [address] [place] [address] [email or web address] 10/03/2025 9:30 AM EST Office Visit [facility] Orthopedics & Sports Medicine [address] [place] [address] Marcio Saba PA-C [address] [place] [address] Orthopedics & Sports Medicine, [facility] [place] [address] [email or web address] 10/21/2025 Procedure Pass OR Admitting Dept - Virtual Department [address] [place] [address] 10/21/2025 1:47 PM EST Hospital Encounter OR Admitting Dept - Virtual Department [address] [place] [address] Jaes Jaime MD [address] [place] [address] Orthopedics & Sports Medicine, [place] [address] [email or web address] 10/21/2025 1:47 PM EST - 10/21/2025 4:54 PM EST Surgery OR Admitting Dept - Virtual Department [address] [place] [address] [phone] Jase Jaime MD [address] [place] [address] Orthopedics & Sports [facility], [place], [place] [phone] [email or web address] ARTHROPLASTY TOTAL KNEE 10/31/2025 10:30 AM EDT Office Visit [facility] Orthopedics & Sports Medicine [address] [place] [address] [phone] Marcio Saba PA-C [address] [place] [address] Sports [facility], [place], [place] [phone] [email or web address] 12/05/2025 10:15 AM EDT Office Visit [facility] Orthopedics & Sports Medicine [address] [place] [address] Jase Jaime MD [address] [place] [address] Orthopedics Sports [place], [place] [phone] [email or web address] Scheduled Procedures Name Priority Associated Diagnoses Date/Ti me ARTHROPLASTY TOTAL KNEE Primary osteoarthritis of right knee 10/21/2025 1:47 PM EST documented as of this encounter Results * XR KNEE 4 OR MORE VIEWS (LEFT) (03/08/2023 10:48 AM EDT) Narrative SYSTEMGENERATED, DOCUMENTATION - 03/08/2023 10:48 AM EDT This image report has been auto-finalized and has not been read by a Radiologist. Interpretation has been included in the provider encounter note for this date of service. us Marcio Saba PA-C IMG XR LOWER EXTREMITY Fi nal Result documented in this encounter Visit Diagnoses Diagnosis Left knee pain, unspecified chronicity Left knee pain, unspecified chronicity Primary osteoarthritis of right knee documented in this encounter Additional Health Concerns Infection Onset Date Last Indicated Resolved Time CoV-Risk 06/25/2023 06/25/2023 07/06/2023 1:22 AM EST CoV-Risk 12/04/2024 12/04/2024 12/15/2024 1:21 AM EDT documented as of this encounter Care Teams Paint Spray Tender Relationship Specialty Start Date End Date Alessandro Chang MD [address] [place] [phone] PCP - General 06/09/17 Isael Romero MD [address] [place] [address] [email or web address] Historical LMR Provider 06/11/17 Cintia Pate PA-C [address] [place] [address] Orthopedics & Sports Medicine, [place] [address] [email or web address] Historical LMR Provider 06/11/17 documented as of this encounter Additional Source Comments The information contained in this document represents components of the legal health record. It is not the complete legal health record.[facility]
--- OUTSIDE RECORDS SUMMARY | 2025-06-23 12:48 | XMS_ITS | Encounter Summary ---
Author Organization [facility] Address [address] [place] [phone] Care Team Providers Care Coagulator Name Role Phone Unavailable Primary Care Provider Unavailabl e Encounter Details Date Type Department Care Team ([facility] st Contact Info) Description 06/23/2017 Scanned Document [facility] [address] [place] [address] Ernestine Mack MD [address] [place] [phone] Social History Tobacco Use Types Packs/Day [...] Date/Time Associated Diagnosis Comments LAB SCAN Routine 06/02/2017 documented in this encounter Results * Lab Scan (06/02/2017) Blood specimen (specimen) us Ernestine Mack MD LAB BLOOD ORDERABLES Final Result documented in this encounter Visit Diagnoses Not on filedocumented in this encounter
--- OUTSIDE RECORDS SUMMARY | 2025-06-23 12:48 | XMS_ITS | Encounter Summary ---
Author Organization [facility] and [facility] Address [address] [place] [phone] Care Team Providers Care Consulting Application Engineer Name Role Phone Unavailable Primary Care Provider Unavailabl e Encounter Details Date Type Department Care Team (Late st Contact Info) Description 04/03/2020 Scanned Document [facility] [address] [place] [address] Ernestine Mack MD [address] [place] [phone] Social History Tobacco Use Types Packs/Day [...] Date/Time Associated Diagnosis Comments LAB SCAN Routine 04/03/2020 documented in this encounter Results * Lab Scan (04/03/2020) Ernestine Mack MD LAB BLOOD ORDERABLES Final Result documented in this encounter Visit Diagnoses Not on filedocumented in this encounter
--- OUTSIDE RECORDS SUMMARY | 2025-06-23 12:48 | XMS_ITS | Encounter Summary ---
Author Organization [facility] and [facility] Address [address] [place] [phone] Care Team Providers Care Stump Blower Name Role Phone Unavailable Primary Care Provider Unavailabl e Encounter Details Date Type Department Care Team ([facility] st Contact Info) Description 09/13/2017 Scanned Document [facility] [address] [place] [address] Ernestine Mack MD [address] [place] [phone] Social History Tobacco Use Types Packs/Day [...] Date/Time Associated Diagnosis Comments LAB SCAN Routine 07/15/2017 documented in this encounter Results * Lab Scan (07/15/2017) Blood specimen (specimen) us Ernestine Mack MD LAB BLOOD ORDERABLES Final Result documented in this encounter Visit Diagnoses Not on filedocumented in this encounter
--- OUTSIDE RECORDS SUMMARY | 2025-06-23 12:48 | XMS_ITS | Encounter Summary ---
Author Organization [facility] and [facility] Address [address] [place] [phone] Care Team Providers Care Events Administrative Assistant Name Role Phone Unavailable Primary Care Provider Unavailabl e Encounter Details Date Type Department Care Team ([facility] st Contact Info) Description 10/11/2017 Scanned Document [facility] [address] [place] [address] Ernestine Mack MD [address] [place] [phone] Social History Tobacco Use Types Packs/Day [...] Date/Time Associated Diagnosis Comments LAB SCAN Routine 08/18/2017 documented in this encounter Results * Lab Scan (08/18/2017) Blood specimen (specimen) us Ernestine Mack MD LAB BLOOD ORDERABLES Final Result documented in this encounter Visit Diagnoses Not on filedocumented in this encounter
--- OUTSIDE RECORDS SUMMARY | 2025-06-23 12:48 | XMS_ITS | Encounter Summary ---
Author Organization [facility] Address [address] [place] [phone] Phone Care Team Providers Care Sharepoint Application Architect Name Role Phone Alessandro Chang MD Primary Care Provider Alessandro Chang MD Unavailable Isael Romero MD Unavailable Cintia Pate PA-C Unavailable [phone] Encounter Details Date Type Department Care Team (Latest Contact Info) Description 06/18/2017 Transcribe Orders [facility] Phlebotomy [address] [place] [id number] Isael Romero MD [address] [place] [address] [phone] [email or web address] Pre-op evaluation (Primary Dx) Social History Tobacco Use Types Packs/Day Years Used Date Smoking Tobacco: Never Alcohol Use Standard Drinks/Week Comments [...] Description 06/24/2025 10:45 AM EST Office Visit [facility] [address] [address] Morris Fry MD [address] [place] [phone] Dagmar Lopez, PT [address] [place] [address] sue [email or web address] 06/27/2025 10:15 AM EST Office Visit [address] [address] Morris Fry MD [address] [place] [phone] Lashawn Ramirez, VAC PRESS OPERATOR [address] [place] [address] [email or web address] 07/01/2025 10:15 AM EST Office Visit [address] [address] Morris Fry MD [address] [place] [phone] Lashawn Ramirez, VAC PRESS OPERATOR [address] [place] [address] [email or web address] 07/03/2025 10:00 AM EST Office Visit [address] [address] Morris Fry MD [address] [place] [address] Dagmar Lopez, PT [address] [place] [address] sue [email or web address] 07/08/2025 10:00 AM EST Office Visit [address] [address] Morris Fry MD [address] [place] [address] Dagmar Lopez, PT [address] [place] [address] sue [email or web address] 07/12/2025 10:15 AM EST Office Visit [address] [address] Morris Fry MD [address] [place] [phone] Lashawn Ramirez, VAC PRESS OPERATOR [address] [place] [address] [email or web address] 07/15/2025 10:45 AM EST Office Visit [address] [address] Morris Fry MD [address] [place] [address] Dagmar Lopez, PT [address] [place] [address] sue [email or web address] 07/17/2025 10:45 AM EST Office Visit [address] [address] Morris Fry MD [address] [place] [address] Dagmar Lopez, PT [address] [place] [address] sue [email or web address] 07/22/2025 11:00 AM EST Office Visit [address] [address] Morris Fry MD [address] [place] [address] Lashawn Ramirez, VAC PRESS OPERATOR [address] [place] [address] [email or web address] 07/25/2025 10:45 AM EST Office Visit [address] [address] Morris Fry MD [address] [place] [address] Dagmar Lopez, PT [address] [place] [address] sue [email or web address] 07/29/2025 10:45 AM EST Office Visit [address] [address] Morris Fry MD [address] [place] [phone] Dagmar Lopez, PT [address] [place] [address] sue [email or web address] 08/01/2025 10:45 AM EST Office Visit [address] [address] Morris Fry MD [address] [place] [address] Dagmar Lopez, PT [address] [place] [address] sue [email or web address] 08/05/2025 10:15 AM EST Office Visit [address] [address] Morris Fry MD [address] [place] [address] Lashawn Ramirez, VAC PRESS OPERATOR [address] [place] [address] [email or web address] 08/08/2025 10:45 AM EST Office Visit [address] [address] Morris Fry MD [address] [place], [place] Dagmar Lopez, PT [address] [place] [address] sue [email or web address] 08/12/2025 10:45 AM EST Office Visit [address] [address] Morris Fry MD [address] [place] [address] Dagmar Lopez, PT [address] [place] [address] sue [email or web address] 08/14/2025 10:00 AM EST Office Visit [address] [address] Morris Fry MD [address] [place], [place] Dagmar Lopez, PT [address] [place] [address] sue [email or web address] 08/19/2025 11:00 AM EST Office Visit [address] [address] Morris Fry MD [address] [place] [address] FelipeLashawn boo, VAC PRESS OPERATOR [address] [place] [address] [email or web address] 08/21/2025 10:45 AM EST Office Visit [facility] [address] [place] [address] Brothers, Morris Snider MD [address] [place] [address] Dagmar Lopez, PT [address] [place] [address] sue [email or web address] 10/03/2025 9:30 AM EST Office Visit [facility] [address] [place] [address] Marcio Saba PA-C [address] [place] [address] Orthopedics & Sports Medicine, [place] [address] [email or web address] 10/21/2025 Procedure Pass OR Admitting Dept - Virtual Department [address] [place] [address] 10/21/2025 1:47 PM EST Hospital Encounter OR Admitting Dept - Virtual Department [address] [place] [address] Jase Jaime MD [address] [place] [address] Orthopedics & Sports Medicine, [place] [address] [email or web address] 10/21/2025 1:47 PM EST - 10/21/2025 4:54 PM EST Surgery OR Admitting Dept - Virtual Department [address] [place] [phone] Jase Jaime MD [address] [place] [address] Orthopedics & Sports [facility], [place] [address] [email or web address] ARTHROPLASTY TOTAL KNEE 10/31/2025 10:30 AM EDT Office Visit [facility] [address] [place] [address] [phone] Marcio Saba PA-C [address] [place] [address] Orthopedics Sports [facility], [place], [place] [phone] [email or web address] 12/05/2025 10:15 AM EDT Office Visit [facility] [address] [place] [address] [phone] Jase Jaime MD [address] [place] [address] Orthopedics Sports [facility], [place], [place] [phone] [email or web address] [email or web address] Procedures Name Priority Associated Diagnoses Date/Ti me ARTHROPLASTY TOTAL KNEE Primary osteoarthritis of right knee 10/21/2025 1:47 PM EST documented as of this encounter Results * Type and Screen (ABO,Rh,Antibody Screen) (06/18/2017 11:01 AM EDT) ABO/Rh O Positive [facility] Antibody Screen Negative [facility] BB Band [id number] [facility] Expiration Date of Sample 06/21/2017 [facility] Resulting Agency [facility] Blood 06/18/2017 11:0 1 AM EDT 06/18/2017 11:20 AM EDT us Isael Romero MD LAB BLOOD BANK TEST ORDER GUILLERMO Edited Result - Final [facility] [address] [place], [place] [id number] documented in this encounter Visit Diagnoses Diagnosis Pre-op evaluation- Primary Primary osteoarthritis of right knee documented in this encounter Additional Health Concerns Infection Onset Date Last Indicated Resolved Time CoV-Risk 06/25/2023 06/25/2023 07/06/2023 1:22 AM EST CoV-Risk 12/04/2024 12/04/2024 12/15/2024 1:21 AM EDT documented as of this encounter Care Teams Sharepoint Application Architect Relationship Specialty Start Date End Date Alessandro Chang MD [address] [place] [phone] PCP - General 06/09/17 Alessandro Chang MD [address] [place] [phone] Historical LMR Provider 06/11/17 2 Isael Romero MD [address] [place] [address] [email or web address] Historical LMR Provider 06/11/17 Cintia Pate PA-C [address] [place] [address] Orthopedics & Sports Medicine, [place] [address] [email or web address] Historical LMR Provider 06/11/17 documented as of this encounter Additional Source Comments The information contained in this document represents components of the legal health record. It is not the complete legal health record.[facility]
--- OUTSIDE RECORDS SUMMARY | 2025-06-23 12:48 | XMS_ITS | Encounter Summary ---
Author Organization [facility] Address [address] [place] [phone] Care Team Providers Care Warping Mill Operator Name Role Phone Unavailable Primary Care Provider Unavailabl e Encounter Details Date Type Department Care Team (Late st Contact Info) Description 12/03/2014 Scanned Document [facility] [address] [facility] [address] [place] [address] External, Provider Social History Tobacco Use Types [...] Date/Time Associated Diagnosis Comments LAB SCAN Routine 11/27/2014 documented in this encounter Results * Lab Scan (11/27/2014) Blood specimen (specimen) us Provider External LAB BLOOD ORDERABLES Final Res ult [facility] [place], [place], [facility] documented in this encounter Visit Diagnoses Not on filedocumented in this encounter
--- OUTSIDE RECORDS SUMMARY | 2025-06-23 12:48 | XMS_ITS | Encounter Summary ---
Author Organization [facility] Address [address] [place] [phone] Care Team Providers Care Relief Captain Name Role Phone Unavailable Primary Care Provider Unavailabl e Encounter Details Date Type Department Care Team (Late st Contact Info) Description 06/06/2015 Scanned Document [facility] [address] [facility] [address] [place] [address] External, Provider Social History Tobacco Use Types [...] Date/Time Associated Diagnosis Comments LAB SCAN Routine 05/30/2015 documented in this encounter Results * Lab Scan (05/30/2015) Blood specimen (specimen) us Provider External LAB BLOOD ORDERABLES Final Res ult [facility] [place], [place], [facility] documented in this encounter Visit Diagnoses Not on filedocumented in this encounter
--- OUTSIDE RECORDS SUMMARY | 2025-06-23 12:49 | XMS_ITS | Clinical Summary ---
Author Organization [facility] Address [address] [facility] [address] [address] Phone Care Team Providers Care Barrel Cooper Name Role Phone Alessandro hCang MD Primary Care Provider Isael Romero MD Unavailable Cintia Pate PA-C Unavailable Allergies Active Allergy Reactions Criticality Noted Date Comments Codeine Nausea and/or Vomiting 06/18/2017 Codeine Sulfate 12/22/2016 Other reaction(s): GI upset/ vomitting Piroxicam Rash Low 12/22/2016 Other reaction(s): Unknown Latex, Natural Rubber Rash Low 06/18/2017 Penicillins Rash Low 12/04/2024 Questionable reaction Medications atenolol (TENORMIN) 50 MG tablet Take 75 mg by mouth daily. Active CALCIUM CARBONATE (CALCIUM 500 ORAL) Take 1,000 Units by mouth 2 (two) times a day. Active prednisoLONE acetate (PRED MILD) 0.12 % ophthalmic suspension Place 1 drop into the right eye daily. 1% noted by pt Active flaxseed oiL Oil 1,000 mg by Miscellaneous route. Active aspirin 81 MG EC tablet Take 1 tablet (81 mg total) by mouth 2 (two) times a day. For 30 days following surgery. 60 tablet 3 Active celecoxib (CELEBREX) 100 MG capsule Take 1 capsule (100 mg total) by mouth 2 (two) times a day. 60 capsule 3 Active docusate sodium (COLACE) 100 MG capsule Take 1 capsule (100 mg total) by mouth 2 (two) times a day as needed for mild constipation. 3 Active senna (SENOKOT) 8.6 mg tablet Take 2 tablets by mouth nightly at bedtime as needed for constipation. 3 Active bisacodyl (DULCOLAX) 5 mg Tab tablet Take 5 mg by mouth continuous prn (as needed). PRN 3 Active valGANciclovir (VALCYTE) 450 mg tablet Take 450 mg by mouth daily. 2 Active levothyroxine (SYNTHROID, LEVOTHROID) 50 MCG tablet Take 1 tablet by mouth every morning. 3 Active LORazepam (ATIVAN) 0.5 MG tablet Take 0.5 mg by mouth 2 (two) times a day. PRN 3 Active valACYclovir (VALTREX) 500 MG tablet Take 1 tablet by mouth 2 (two) times a day. 4 Active ATENOLOL ORAL Take 75 mg by mouth daily. Active traZODone (DESYREL) 50 MG tablet TAKE 1 TO 3 TABLETS BY MOUTH AT BEDTIME WITH FOOD 5 Active tobramycin-dex AMETHasone (TOBRADEX) ophthalmic suspension Apply 1-2 drops to eye. 5 Active Active Problems Problem Noted Date Diagnosed Date Primary osteoarthritis of left hip 01/31/2025 Status post total replacement of right hip 01/10 Overview (01/31/2025): Right, 2017, [facility], Romero White coat syndrome without hypertension 024 Supraventricular tachycardia 01/11/2024 Osteopenia 01/11/2024 Hypothyroidism 01/11/2024 Fuchs' corneal dystrophy 01/11/2024 Corneal transplant status 01/11/2024 CMV (cytomegalovirus) infection 01/11/2024 Bilateral cataracts 01/11/2024 Autoimmune hepatitis 01/11/2024 Arthritis 01/11/2024 Primary osteoarthritis of right knee 01/11/2024 S/P total knee arthroplasty, left 04/06/2023 Resolved Problems Problem Noted Date Diagnosed Date Resolved Date Pain of right hip joint 01/11/202401/20 Primary osteoarthritis of left knee 02/23/2022 01/31/2025 Primary osteoarthritis of right hip 06/20/2017 02/23/2022 Encounters Date Type Department Care Team Description 06/19/2025 10:45 AM EDT Office Visit [address] [address] Morris Fry MD Menard-Johnston, Erin, PT Acute postoperative pain of left hip (Primary Dx) 06/17/2025 2:15 PM EDT Office Visit [address] [address] Morris Fry MD Menard-Johnston, Erin, PT Acute postoperative pain of left hip (Primary Dx) 06/17/2025 Plan of Care Documentation [address] [address] 05/22/2025 Procedure Pass OR Admitting Dept - Virtual Department [address] [place] [address] 04/17/2025 Transcribe Orders [facility] [address] [place] [address] Dagmar Sevilla Encounter for rehabilitation (Primary Dx) from Last 3 Months Immunizations No known immunizations Family History Relation Status Comments Father Mother Social History Tobacco Use Types Packs/Day Years [...] on file Sexual Orientation Not on file Last Filed Vital Signs Vital Sign Reading Time Taken Comments Blood Pressure 128/84 12/04/2024 11:36 AM EDT Pulse 85 12/04/2024 11:36 AM EDT Temperature 37 C (98.6 F) 12/04/2024 11:36 AM EDT Respiratory Rate 18 12/04/2024 11:36 AM EDT Oxygen Saturation 96% 12/04/2024 11:36 AM EDT Inhaled Oxygen Concentration 5% 06/20/2017 9 :45 AM EDT Weight 73.5 kg (162 lb) 06/19/2024 11:43 AM EDT Height 169 cm (5' 6.54 ) 06/19/2024 11:43 AM EDT Body Mass Index 25.73 06/19/2024 11:43 AM EDT Plan of Treatment Upcoming Encounters Date Type Department Care Team (Latest Contact Info) Description 06/24/2025 10:45 AM EST Office Visit [facility] [address] [place] [address] Brothers, Morris Snider MD [address] [place] [address] Dagmar Lopez, PT [address] [place] [address] [email or web address] 06/27/2025 10:15 AM EST Office Visit [address] [address] Morris Fry MD [address] [place] [address] Lashawn Ramirez, MENTAL HEALTH CLINICIAN [address] [place] [address] [email or web address] 07/01/2025 10:15 AM EST Office Visit [address] [address] Morris Fry MD [address] [place] [address] Lashawn Ramirez, MENTAL HEALTH CLINICIAN [address] [place] [address] [email or web address] 07/03/2025 10:00 AM EST Office Visit [address] [address] Morris Fry MD [address] [place] [address] Dagmar Lopez, PT [address] [place] [address] [email or web address] 07/08/2025 10:00 AM EST Office Visit [address] [address] Morris Fry MD [address] [place] [phone] Dagmar Lopez, PT [address] [place] [address] [email or web address] 07/12/2025 10:15 AM EST Office Visit [address] [address] Morris Fry MD [address] [place] [phone] Lashawn Ramirez, MENTAL HEALTH CLINICIAN [address] [place] [address] [email or web address] 07/15/2025 10:45 AM EST Office Visit [address] [address] Morris Fry MD [address] [place] [address] Dagmar Lopez, PT [address] [place] [address] [email or web address] 07/17/2025 10:45 AM EST Office Visit [address] [address] Morris Fry MD [address] [place] [phone] Dagmar Lopez, PT [address] [place] [address] [email or web address] 07/22/2025 11:00 AM EST Office Visit [address] [address] Morris Fry MD [address] [place] [address] Lashawn Ramirez, MENTAL HEALTH CLINICIAN [address] [place] [address] [email or web address] 07/25/2025 10:45 AM EST Office Visit [address] [address] Morris Fry MD [address] [place] [phone] Dagmar Lopez, PT [address] [place] [address] [email or web address] 07/29/2025 10:45 AM EST Office Visit [address] [address] Morris Fry MD [address] [place] [phone] Dagmar Lopez, PT [address] [place] [address] [email or web address] 08/01/2025 10:45 AM EST Office Visit [address] [address] Morris Fry MD [address] [place] [phone] Dagmar Lopez, PT [address] [place] [address] [email or web address] 08/05/2025 10:15 AM EST Office Visit [address] [address] Morris Fry MD [address] [place] [phone] Lashawn Ramirez, MENTAL HEALTH CLINICIAN [address] [place] [address] [email or web address] 08/08/2025 10:45 AM EST Office Visit [address] [address] Morris Fry MD [address] [place] [phone] Dagmar Lopez, PT [address] [place] [address] [email or web address] 08/12/2025 10:45 AM EST Office Visit [address] [address] Morris Fry MD [address] [place] [address] Dagmar Lopez, PT [address] [place] [address] [email or web address] 08/14/2025 10:00 AM EST Office Visit [address] [address] Morris Fry MD [address] [place] [address] Dagmar Lopez, PT [address] [place] [address] [email or web address] 08/19/2025 11:00 AM EST Office Visit [address] [address] Morris Fry MD [address] [place] [address] Lashawn Ramirez, MENTAL HEALTH CLINICIAN [address] [place] [address] [email or web address] 08/21/2025 10:45 AM EST Office Visit [address] [address] Morris Fry MD [address] [place] [address] Dagmar Lopez, PT 10 [place] [address] [email or web address] 10/03/2025 9:30 AM EST Office Visit [facility] [address] [place] [address] Marcio Saba PA-C [address] [place] [address] Orthopedics Sports [facility], [place] [address] [email or web address] 10/21/2025 Procedure Pass OR Admitting Dept - Virtual Department [address] [place] [address] 10/21/2025 1:47 PM EST Hospital Encounter OR Admitting Dept - Virtual Department [address] [place] [address] Jase Jaime MD [address] [place] [address] Orthopedics Sports [facility], [place], [place] [phone] [email or web address] 10/21/2025 1:47 PM EST - 10/21/2025 4:54 PM EST Surgery OR Admitting Dept - Virtual Department [address] [place] [address] Jase Jaime MD [address] [place] [address] Orthopedics Sports [facility], [place], [place] [phone] [email or web address] ARTHROPLASTY TOTAL KNEE 10/31/2025 10:30 AM EDT Office Visit [facility] [address] [phone] Marcio Saba PA-C [address] [place] [address] Orthopedics Sports [facility], [place], [place] [phone] [email or web address] 12/05/2025 10:15 AM EDT Office Visit [facility] [address] [place] [address] Jase Jaime MD [address] [place] [address] Orthopedics & Sports Medicine, [facility] [place] [address] [email or web address] Scheduled Procedures Name Priority Associated Diagnoses Date/Ti me ARTHROPLASTY TOTAL KNEE Primary osteoarthritis of right knee 10/21/2025 1:47 PM EST Health Maintenance Due Date Last Done Comments Adult Td,Tdap Booster 1940 TSH LEVEL 1940 DEPRESSION SCREENING 1954 HEPATITIS A VACCINES (1 of 2 - Risk 2-dose series) 1961 ZOSTER VACCINES (1 of 2) 1992 OSTEOPOROSIS SCREENING INITIAL (ONE-TIME) 11/22/2007 RSV VACCINE (1 - 1-dose 75+ series) 2017 INFLUENZA VACCINE (#1) 2025 COVID-19 VACCINE ( season) 2025 06/29/2021, 10/14/2020, 09/23/2020 CREATININE LEVEL 02/08/2026 02/08/2025, , 04/07/2023, Additional history exists PNEUMOCOCCAL VACCINES (50+ years) Completed 07/25/2024, 04/03/2015 HIB VACCINES Aged Out No longer eligi ble based on patient's age to complete this topic MENINGOCOCCAL VACCINES (ACWY) Aged Out No longer eligible based on patient's age to complete this topic MENINGOCOCCAL VACCINES (B) Aged Out N o longer eligible based on patient's age to complete this topic Medical Devices Implanted Type Area [employer] Technician Device Identifier Shelf Expiration Date Model / Serial / Lot Knee Insert 10xto 71 75mm Implant Bring Kizzy 05 - [id number] Implanted:Qty: 1 on 04/06/2023 by Jase Jaime MD at [facility] NODATA Left: Knee [employer] 04/14/2025 [id number] / / [id number] Implant Hip 36mm Plus 0mm Femoral Head Modular Sterling Chrome Ea Hip [id number] Implanted:Qty: 1 on 06/20/2017 by Isael Romero MD at [facility] STANDARD Right: Hip [employer] 05/07/2027 [id number] / / [id number] Shell Acetabular G7 4 Montano Size 52mm Hip [id number] Implanted:Qty: 1 on 06/20/2017 by Isael Romero MD at [facility] Right: Hip [employer] 02/02/2027 [id number] / / Implant Hip Stem Femoral Taperloc Porous [id number] High Ea Hip [id number] Implanted:Qty: 1 on 06/20/2017 by Isael Romero MD at [facility] Right: Hip [employer] 11/17/2026 [id number] / / [id number] Acetabular Liner High Wall Implanted:Qty: 1 on 06/20/2017 by Isael Romero MD at [facility] Right: Hip [employer] 03/30/2022 Cement Bone 1x40 Standard - [id number] Implanted:Qty: 1 on 04/06/2023 by Jase Jaime MD at [facility] Left: Knee EULALIA [employer] 07/21/2025 [id number] / / [id number] Knee Tray 71mm Plate Bone Primary Vanguard Sterling I Beam Revision Interlock Cemented - [id number] Implanted:Qty: 1 on 04/06/2023 by Jase Jaime MD at [facility] Left: Knee [employer] 01/11/2033 [id number] / / [id number] Button Patella Knee Vanguard Uhmwpe 3 Series A Standard - [id number] Implanted:Qty: 1 on 04/06/2023 by Jase Jaime MD at [facility] Left: Knee [employer] 03/02/2027 [id number] / / [id number] Box Component 65.0mm Femoral Knee Vanguard Interlok Sterling Posterior Stabilized Open Cemented Left - [id number] Implanted:Qty: 1 on 04/06/2023 by Jase Jaime MD at [facility] Left: Knee [employer] 01/07/2033 [id number] / / [id number] Procedures Procedure Name Priority Date/Time Associated Diagnosis Comments BASIC METABOLIC PANEL (BMP) Routine 02/08/2025 8:54 AM EDT Primary osteoarthritis of right knee from Last 3 Months or Most Recently Relevant to Health Maintenance Results * Basic metabolic panel (02/08/2025 8:54 AM EDT) SODIUM 135 133 - 146 mmol/L [facility] CHLORIDE 97 96 - 108 mmol/L [facility] POTASSIUM 4.5 3.3 - 5.1 mmol/L [facility] CO2 28 21 - 35 mmol/L [facility] BUN 15 6 - 19 mg/dL [facility] CREATININE 0.50 0.5 - 1.5 mg/dL [facility] GLUCOSE 89 70 - 99 mg/dL [facility] CALCIUM 9.2 8.4 - 10.3 mg/dL [facility] EGFR 94 >59 mL/min/1.7 3m2 [facility] Comment:Estimated glomerular filtration rate calculated using the CKD-EPI refit equation. ANION GAP 15 10 - 20 mmol/L [facility] Blood 02/08/2025 8:54 AM EDT 02/08/2025 8:56 AM EDT Jase Jaime MD LAB BLOOD BKR ORDERABLES Fin al Result [address] [address] from Last 3 Months or Most Recently Relevant to Health Maintenance Insurance MEDICARE PART A & B [employer] MEDEX SUPPLEMENT MEDICARE PART A & B [employer] MEDEX SUPPLEMENT MEDICARE PART A & B [email or web address] MEDEX SUPPLEMENT [employer] CROSS MEDEX SUPPLEMENT MEDICARE PART A & B [facility] MEDEX SUPPLEMENT MEDICARE PART A & B [employer]OSS MEDEX SUPPLEMENT MEDICARE PART A & B [email or web address] MEDEX SUPPLEMENT MEDICARE PART A & B [employer]OSS MEDEX SUPPLEMENT MEDICARE PART A & B [employer] CROSS MEDEX SUPPLEMENT Advance Directives For more information, please contact: [phone] (9AM - 5PM [facility], Tuesday-Tuesday) Documents on File Type Date Recorded Patient [employer] Devan garay Healthcare Proxy 06/24/2017 2:35 PM * Full Code (Latest Code Status on File) Date Activated Date Inactivated Comments 04/06/2023 8:29 AM Question Answer Comments Code Status Confirmed With: Patient * Full Code (Presumed) Date Activated Date Inactivated Comments 06/20/2017 11:42 AM 06/22/2017 5:02 PM Care Teams Barrel Cooper Relationship Specialty Start Date End Date Alessandro Chang MD [address] [place] [phone] PCP - General 06/09/17 Isael Romero MD [address] [place] [address] [email or web address] Historical LMR Provider 06/11/17 Cintia Pate PA-C [address] [place] [address] Orthopedics [facility] Medicine, [place] [address] [email or web address] Historical LMR Provider 06/11/17 Additional Source Comments The information contained in this document represents components of the legal health record. It is not the complete legal health record.[facility]
--- OUTSIDE RECORDS SUMMARY | 2025-06-23 12:49 | XMS_ITS | Clinical Summary ---
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 10 mL 3 4 Active tobramycin-dexAME THasone (TOBRADEX) 0.3-0.1 % ophthalmic suspensionIndicat ions:Chalazion of right eye, unspecified eyelid Administer 1-2 drops to the right eye 4 (four) times a day. 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); Ptosis of eyelid, unspecified laterality from Last 3 Months Social History Tobacco Use Types Packs/Day Years Used Date Smoking Tobacco: Never Assessed Comments Unknown Sex and Gender Information Value Date Recorded Sex Assigned at Not on file Legal Sex Female 6:31 PM EST Gender Identity Not on file Sexual Orientation Not on file Plan of Treatment Upcoming Encounters Date Type Department Care Team (Late st Contact Info) Description 10/17/2025 10:00 AM EST Office Visit [facility], [address] [address] [place] [address] [place] [phone] (Fax) Health Maintenance Due Date Last Done Comments Advance Care Planning 1940 DTaP/Tdap/Td Vaccines (1 - Tdap) 1961 Pneumococcal Vaccines 50+ (1 of 1 - PCV) 1992 Zoster (Shingles) Vaccine (1 of 2) 1992 DXA Bone Density (Females,Ag es 65 and older) 11/22/2007 RSV Vaccine 50 years and old er and Patients (1 - 1-dose 75+ series) 2017 Influenza Vaccine 03/22/2025 COVID-19 Vaccine ( - 2023-2 5 season) 2025 Hepatitis B Vaccines Aged Out No long er eligible based on patient's age to complete this topic Insurance [employer] [id number] MEDICARE PART A & B [facility] Care Teams Eligibility Worker Relationship Specialty Start Date End Date Qamar Gross MD [address] [place] [address] Ophthalmology 01/29/25
--- OUTSIDE RECORDS SUMMARY | 2025-06-23 12:49 | XMS_ITS | Encounter Summary ---
Author Organization [facility] Address [address] [employer] [facility] [address] [place] [address] Phone Care Team Providers Care Teacher Of The Emotionally Disturbed Name Role Phone Alessandro Chang MD Primary Care Provider Isael Romero MD Unavailable [phone] Cintia Pate PA-C Unavailable [phone] Encounter Details Date Type Department Care Team (Late st Contact Info) Description 04/06/2023 Procedure Pass OR Admitting Dept - Virtual Department [address] [place] [address] Social History Tobacco Use Types Packs/Day Years Used Date Smoking Tobacco: Never Smokeless Tobacco: Never Alcohol Use Standard Drinks/Week Comments Yes 7 (1 standard drink = 0.6 oz pur e alcohol) Education Answer Date Recorded Are you interested [...] on file documented as of this encounter Functional Status * Calculated C-SSRS Risk Score (Lifetime/Recent) Answer Date of Assessment Author No Risk Indicated 04/06/2023 6:00 PM EDT Channing Alvarez RN * [place] Suicide Severity Rating Scale (Screener/Recent Self-Report) Question Answer Date of Assessment Author 1. Wish to be (Past 1 Month) No 04/06/2023 6:00 PM LIT Channing Olmedo, MERE 2. Non-Specific Active Suicidal Thoughts (Past 1 Month) No 04/06/2023 6:00 PM EDT Channing Olmedo RN 6. Suicidal Behavior (Lifetime) No 04/06/2023 6:00 PM LIT Channing Olmedo RN documented as of this encounter Plan of Treatment Upcoming Encounters Date Type Department Care Team (Latest Contact Info) Description 06/24/2025 10:45 AM EST Office Visit [address] [address] Morris Fry MD [address] [place] [phone] Dagmar Lopez, PT 10 [place] [address] sue [email or web address] 06/27/2025 10:15 AM EST Office Visit [address] [address] Morris Fry MD 300 [facility], [place] [phone] Lashawn Ramirez, LIBRARY CATALOGING TECHNICIAN 10 [place] [address] [email or web address] 07/01/2025 10:15 AM EST Office Visit [address] [address] Morris Fry MD [address] [place] [phone] Lashawn Ramirez, LIBRARY CATALOGING TECHNICIAN 10 [place] [address] [email or web address] 07/03/2025 10:00 AM EST Office Visit [address] [address] Morris Fry MD [address] [place] [phone] Dagmar Lopez, PT 10 [place] [address] sue [email or web address] 07/08/2025 10:00 AM EST Office Visit [address] [address] Morris Fry MD [address] [place] [phone] Dagmar Lopez, PT 10 [place] [address] sue [email or web address] 07/12/2025 10:15 AM EST Office Visit [address] [address] Morris Fry MD [address] [place] [phone] Lashawn Ramirez, LIBRARY CATALOGING TECHNICIAN 10 [place] [address] [email or web address] 07/15/2025 10:45 AM EST Office Visit [address] [address] Morris Fry MD [address] [place] [phone] Dagmar Lopez, PT 10 [place] [address] sue [email or web address] 07/17/2025 10:45 AM EST Office Visit [address] [address] Morris Fry MD [address] [place] [phone] Dagmar Lopez, PT 10 [place] [address] sue [email or web address] 07/22/2025 11:00 AM EST Office Visit [address] [address] Morris Fry MD [address] [place] [phone] Lashawn Ramirez, LIBRARY CATALOGING TECHNICIAN 10 [place] [address] [email or web address] 07/25/2025 10:45 AM EST Office Visit [address] [address] Morris Fry MD [address] [place] [address] Dagmar Lopez, PT 10 [place] [address] sue [email or web address] 07/29/2025 10:45 AM EST Office Visit [address] [address] Morris Fry MD [address] [place] [address] Dagmar Lopez, PT 10 [place] [address] sue [email or web address] 08/01/2025 10:45 AM EST Office Visit [address] [address] Morris Fry MD [address] [place] [phone] Dagmar Lopez, PT 10 [place] [address] sue [email or web address] 08/05/2025 10:15 AM EST Office Visit [address] [address] Morris Fry MD [address] [place] [phone] Lashawn Ramirez, LIBRARY CATALOGING TECHNICIAN 10 [place] [address] [email or web address] 08/08/2025 10:45 AM EST Office Visit [address] [address] Morris Fry MD [address] [place] [phone] Dagmar Lopez, PT 10 [place] [address] sue [email or web address] 08/12/2025 10:45 AM EST Office Visit [address] [address] Morris Fry MD [address] [place] [phone] Dagmar Lopez, PT 10 [place] [address] sue [email or web address] 08/14/2025 10:00 AM EST Office Visit [address] [address] Morris Fry MD [address] [place] [phone] Dagmar Lopez, PT 10 [place] [address] sue [email or web address] 08/19/2025 11:00 AM EST Office Visit [address] [address] Morris Fry MD [address] [place] [phone] Lashawn Ramirez, LIBRARY CATALOGING TECHNICIAN 10 [place] [address] [email or web address] 08/21/2025 10:45 AM EST Office Visit [address] [address] Morrsi Fry MD [address] [place] [phone] Dagmar Lopez, PT 10 [place] [address] sue [email or web address] 10/03/2025 9:30 AM EST Office Visit [facility] [address] [place] [address] Marcio Saba PA-C [address] [place], [place] [address]s Sports [facility], [place] [address] [email or web address] 10/21/2025 Procedure Pass OR Admitting Dept - Virtual Department [address] [place] [address] 10/21/2025 1:47 PM EST Hospital Encounter OR Admitting Dept - Virtual Department [address] [place] [address] Jase Jaime MD [address] [place], [place] [address]s Sports [facility], [place] [address] [email or web address] 10/21/2025 1:47 PM EST - 10/21/2025 4:54 PM EST Surgery OR Admitting Dept - Virtual Department [address] [place] [address] Jase Jaime MD [address] [place], [place] [address]s [facility], [place] [address] [email or web address] TOTAL KNEE 10/31/2025 10:30 AM EDT Office Visit [facility] [address] [place] [address] Marcio Saba PA-C [address] [place], [place] [address]s Sports [facility], [place], [place] [phone] [email or web address] 12/05/2025 10:15 AM EDT Office Visit [facility] [address] [place] [address] Jase Jaime MD [address] [facility] [place] [address] [email or web address] Scheduled Procedures Name Priority Associated [...] documented as of this encounter Care Teams Teacher Of The Emotionally Disturbed Relationship Specialty Start Date End Date Alessandro Chang MD [address] [place] [address] PCP - General 06/09/17 Isael Romero MD [address] [place] [address] [email or web address] Historical LMR Provider 06/11/17 Cintia Pate PA-C [address] [place] [address] [facility] [place] [address] Historical LMR Provider 06/11/17 documented as of this encounter Additional Source Comments The information contained in this document represents components of the legal health record. It is not the complete legal health record.[facility]
--- OUTSIDE RECORDS SUMMARY | 2025-06-23 12:49 | XMS_ITS | Encounter Summary ---
Author Organization [facility] and [facility] Address [address] [place] [phone] Care Team Providers Care Location And Measurement Technician Name Role Phone Unavailable Primary Care Provider Unavailabl e Encounter Details Date Type Department Care Team (Late st Contact Info) Description 03/07/2019 Scanned Document [facility] [address] [place] [address] Ernestine Mack MD [address] [place] [phone] Social History Tobacco Use Types Packs/Day [...] Date/Time Associated Diagnosis Comments LAB SCAN Routine 02/26/2019 documented in this encounter Results * Lab Scan (02/26/2019) Blood us Ernestine Mack MD LAB BLOOD ORDERABLES Final Result documented in this encounter Visit Diagnoses Not on filedocumented in this encounter
--- OUTSIDE RECORDS SUMMARY | 2025-06-23 12:49 | XMS_ITS | Encounter Summary ---
Author Organization [facility] and [facility] Address [address] [place] [address] Care Team Providers Care Service Coordinator Name Role Phone Unavailable Primary Care Provider Unavailabl e Encounter Details Date Type Department Care Team ([facility] st Contact Info) Description 06/17/2014 Scanned Document [facility] 40 [facility] 40 [facility] [address] [place] [address] External, Provider Social History Tobacco Use Types [...] Date/Time Associated Diagnosis Comments LAB SCAN Routine 06/04/2014 documented in this encounter Results * Lab Scan (06/04/2014) Blood specimen (specimen) us Provider External LAB BLOOD ORDERABLES Final Res ult documented in this encounter Visit Diagnoses Not on filedocumented in this encounter
--- OUTSIDE RECORDS SUMMARY | 2025-06-23 12:49 | XMS_ITS | Encounter Summary ---
Author Organization [facility] and [facility] Address [address] [place] [phone] Care Team Providers Care Jamb Cutter Name Role Phone Unavailable Primary Care Provider Unavailabl e Encounter Details Date Type Department Care Team ([facility] st Contact Info) Description 09/04/2018 Scanned Document [facility] [address] [place] [address] Ernestine Mack MD [address] [place] [phone] Social History Tobacco Use Types Packs/Day [...] Date/Time Associated Diagnosis Comments LAB SCAN Routine 08/23/2018 documented in this encounter Results * Lab Scan (08/23/2018) Blood specimen (specimen) us Ernestine Mack MD LAB BLOOD ORDERABLES Final Result documented in this encounter Visit Diagnoses Not on filedocumented in this encounter
--- OUTSIDE RECORDS SUMMARY | 2025-06-23 12:49 | XMS_ITS | Encounter Summary ---
Author Organization [facility] and [facility] Address [address] [place] [phone] Care Team Providers Care Hand Gluer And Slicer Name Role Phone Unavailable Primary Care Provider Unavailabl e Encounter Details Date Type Department Care Team (Late st Contact Info) Description 05/31/2019 Scanned Document [facility] [address] [place] [address] Ernestine Mack MD [address] [place] [phone] Social History Tobacco Use Types Packs/Day [...] Date/Time Associated Diagnosis Comments LAB SCAN Routine 05/30/2019 documented in this encounter Results * Lab Scan (05/30/2019) Ernestine Mack MD LAB BLOOD ORDERABLES Final Result documented in this encounter Visit Diagnoses Not on filedocumented in this encounter
--- OUTSIDE RECORDS SUMMARY | 2025-06-23 12:49 | XMS_ITS | Encounter Summary ---
Author Organization [facility] and [facility] Address [address] [place] [phone] Care Team Providers Care Resource Conservation Specialist Name Role Phone Unavailable Primary Care Provider Unavailabl e Encounter Details Date Type Department Care Team ([facility] st Contact Info) Description 06/21/2010 Scanned Document [facility] [address] [place] [address] 40 [facility] [address] [place] [address] External, Provider Social History Tobacco Use Types [...]
--- OUTSIDE RECORDS SUMMARY | 2025-06-23 12:49 | XMS_ITS | Encounter Summary ---
Author Organization [facility] and [facility] Address [address] [place] [phone] Care Team Providers Care Medicaid Service Coordinator Name Role Phone Unavailable Primary Care Provider Unavailabl e Encounter Details Date Type Department Care Team (Late st Contact Info) Description 08/28/2019 Scanned Document [facility] [address] [place] [address] Ernestine Mack MD [address] [place] [phone] Social History Tobacco Use Types Packs/Day [...] Date/Time Associated Diagnosis Comments LAB SCAN Routine 08/27/2019 documented in this encounter Results * Lab Scan (08/27/2019) Ernestine Mack MD LAB BLOOD ORDERABLES Final Result documented in this encounter Visit Diagnoses Not on filedocumented in this encounter
--- OUTSIDE RECORDS SUMMARY | 2025-06-23 12:49 | XMS_ITS | Encounter Summary ---
Author Organization [facility] Address [address] [place] [address] Care Team Providers Care Neurology Manager Name Role Phone Unavailable Primary Care Provider Unavailabl e Encounter Details Date Type Department Care Team ([facility] st Contact Info) Description 08/28/2014 Scanned Document [facility] 40 [facility] 40 [facility] [address] [place] [address] External, Provider Social History Tobacco Use Types [...] Date/Time Associated Diagnosis Comments LAB SCAN Routine 08/26/2014 documented in this encounter Results * Lab Scan (08/26/2014) Blood specimen (specimen) us Provider External LAB BLOOD ORDERABLES Final Res ult documented in this encounter Visit Diagnoses Not on filedocumented in this encounter
--- OUTSIDE RECORDS SUMMARY | 2025-06-23 12:49 | XMS_ITS | Encounter Summary ---
Author Organization [facility] and [facility] Address [address] [place] [phone] Care Team Providers Care Stock Room Manager Name Role Phone Unavailable Primary Care Provider Unavailabl e Encounter Details Date Type Department Care Team ([facility] st Contact Info) Description 03/30/2018 Scanned Document [facility] [address] [address] Ernestine Mack MD [address] [place] [phone] Social History Tobacco Use Types Packs/Day [...] Date/Time Associated Diagnosis Comments LAB SCAN Routine 02/23/2018 documented in this encounter Results * Lab Scan (02/23/2018) Blood specimen (specimen) us Ernestine Mack MD LAB BLOOD ORDERABLES Final Result documented in this encounter Visit Diagnoses Not on filedocumented in this encounter
--- OUTSIDE RECORDS SUMMARY | 2025-06-23 12:49 | XMS_ITS | Encounter Summary ---
Author Organization [facility] and [facility] Address [address] [place] [phone] Care Team Providers Care Cable Splicer Helper Name Role Phone Unavailable Primary Care Provider Unavailabl e Encounter Details Date Type Department Care Team ([facility] st Contact Info) Description 06/05/2018 Scanned Document [facility] [address] [address] Ernestine Mack MD [address] [place] [phone] Social History Tobacco Use Types Packs/Day [...] Date/Time Associated Diagnosis Comments LAB SCAN Routine 05/26/2018 documented in this encounter Results * Lab Scan (05/26/2018) Blood specimen (specimen) us Ernestine Mack MD LAB BLOOD ORDERABLES Final Result documented in this encounter Visit Diagnoses Not on filedocumented in this encounter
--- OUTSIDE RECORDS SUMMARY | 2025-06-23 12:49 | XMS_ITS | Encounter Summary ---
Author Organization [facility] and [facility] Address [address] [place] [phone] Care Team Providers Care Termite Exterminator Helper Name Role Phone Unavailable Primary Care Provider Unavailabl e Encounter Details Date Type Department Care Team (Late st Contact Info) Description 06/19/2009 Scanned Document [facility] [address] [place] [address] 40 [facility] [address] [place] [address] External, Provider Social History Tobacco Use Types [...]
--- OUTSIDE RECORDS SUMMARY | 2025-06-23 12:49 | XMS_ITS | Encounter Summary ---
Author Organization [facility] and [facility] Address [address] [place] [phone] Care Team Providers Care Compliance Manager Name Role Phone Unavailable Primary Care Provider Unavailabl e Encounter Details Date Type Department Care Team (Late st Contact Info) Description 07/03/2009 Scanned Document [facility] [address] [place] [address] 40 [facility] [address] [place] [address] External, Provider Social History Tobacco Use Types [...]
--- OUTSIDE RECORDS SUMMARY | 2025-06-23 12:49 | XMS_ITS | Encounter Summary ---
Author Organization [facility] and [facility] Address [address] [place] [phone] Care Team Providers Care Mannequin Wig Maker Name Role Phone Unavailable Primary Care Provider Unavailabl e Encounter Details Date Type Department Care Team ([facility] st Contact Info) Description 05/28/2010 Scanned Document [facility] [address] [place] [address] 40 [facility] [address] [place] [address] External, Provider Social History Tobacco Use Types [...]
[2025-06-23 13:25] VITALS: BP 120/79; PULSE 133
[2025-06-23 13:37] LABS: MANUAL DIFF FLAG NO
[2025-06-23 13:38] LABS: Hematocrit 39.9 % (37.0-47.0); Hemoglobin 13.0 g/dl (12.0-16.0); Imm Gran Abs Auto 0.02 X10*3/uL (0.00-0.03); Imm Gran Pct Auto 0.3 % (0.0-0.4); Lymphocytes Absolute Auto 0.9 X10*3/uL (1.2-4.9); Mean Corpuscular HGB Conc 32.6 g/dl (31.0-35.0); Mean Corpuscular Hemoglobin 31.3 pg (27.0-33.0); Mean Corpuscular Volume 96.1 fL (80.0-98.0); NRBC Abs Auto 0.000 X10*3/uL (0.0-0.012); NRBC Pct Auto 0.0 /100WBC (0.0-0.2); Platelet Count 253 X10*3/uL (160-400); Red Blood Count 4.15 X10*6/uL (4.20-5.50); White Blood Count 7.3 X10*3/uL (4.8-10.8)
[2025-06-23 13:47] LABS: INTERNATIONAL NORM RATIO 1.0 (0.9-1.1); Prothrombin Time 11.6 SEC (10.9-12.4)
[2025-06-23 14:03] LABS: Troponin-I High Sensitivity 7.6 ng/L (<3.5-17.0)
--- NOTE | 2025-06-23 14:05 | ECG_ITS ---
Test Reason : REPEAT NORMAL HR Blood Pressure : */* mmHG Vent. Rate : 76 BPM Atrial Rate : 76 BPM P-R Int : 152 ms QRS Dur : 76 ms QT Int : 412 ms P-R-T Axes : 75 69 78 degrees QTcB Int : 463 ms Normal sinus rhythm Normal ECG When compared with ECG of 23-Jun-2025 11:32, Sinus rhythm has replaced Atrial fibrillation Vent. rate has decreased by 54 bpm Referred By: Marylu Hickman Electronically Signed By: Chris Burleson
[2025-06-23 14:06] LABS: Alanine Aminotransferase 12 U/L (0-31); Albumin Level 3.6 g/dL (3.5-5.0); Alkaline Phosphatase 103 U/L (39-117); Anion Gap 13 (12-20); Aspartate Amino Transferase 29 U/L (5-31); Blood Urea Nitrogen 12 mg/dL (9-16); Calcium 8.3 mg/dL (8.4-10.2); Carbon Dioxide 26 mmol/L (22-29); Chloride 103 mmol/L (96-108); Creatinine Clr Calc Pharmacy 76.8; Estimated Glomerular Filt Rate > 60; Magnesium 1.9 mg/dL (1.6-2.6); Potassium 4.5 mmol/L (3.3-5.1); Sodium 137 mmol/L (135-145); Total Protein 6.0 g/dL (6.5-8.0)
[2025-06-23 14:31] VITALS: BP 121/76; PULSE 78; RESP 20
[2025-06-23 15:16] VITALS: BP 118/73; PULSE 76; RESP 17; TEMP -17.7; TEMP 0; O2SAT 96
== END 2025-06-23 15:17 | disposition home or self-care (01) ==
PROVIDERS: Emergency Provider Emergency Medicine Emergency Medical Services; PCP Internal Medicine
DX: I48.91 Unspecified atrial fibrillation (principal); R00.2 Palpitations; R07.9 Chest pain, unspecified; Z79.899 Other long term (current) drug therapy
CPT/HCPCS: 36415; 71045; 80048; 80076; 80307; 83735; 84443; 84484; 85025; 85610; 93005; 96361; 96374; 96376; 99284; 99285; J0616

== ENCOUNTER → 2025-06-23 11:32 | Outpatient (BNV) | payer MEDICARE, SELFPAY | PROVIDERS: Emergency Provider Emergency Medicine Emergency Medical Services; PCP Internal Medicine; Visit Provider Internal Medicine Cardiovascular Disease | DX: I48.91 Unspecified atrial fibrillation (principal); R07.9 Chest pain, unspecified | CPT/HCPCS: 93010 ==

== ENCOUNTER 2025-07-08 13:46 | Outpatient (AMB) | payer MEDICARE, SELFPAY ==
[2025-07-08 13:54] VITALS: BP 138/70; PULSE 87; BMI 24.5
--- NOTE | 2025-07-08 13:54 | A.OFFVIS_ITS ---
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 / tachy (HS) Allergies Influenza Virus Vaccines Allergy (Intermediate, Verified 06/23/25 11:48) Rash, fever, flu-like symptoms latex Allergy (Intermediate, Verified 06/23/25 11:48) Rash piroxicam (From Feldene) Allergy (Intermediate, Verified 06/23/25 11:48) Rash Codeine Phosphate Adverse Reaction (Unknown, Uncoded 06/23/25 11:48) stomach upset, n/v Medication List - Last Reconciled 07/08/25 by Ron Mejia MD apixaban (Eliquis) 5 mg PO BID atenolol 100 mg PO DAILY calcium carbonate-vitamin D3 500 mg-10 mcg (400 unit) (Calcium 500 + D) 1 tab PO DAILY flaxseed oil-omega 3,6,9 1,300 mg-845 mg -117 mg-117 mg 1 cap PO BID levothyroxine 1 tab PO DAILY lorazepam 0.5 mg PO BID PRN HPI Comments Details: Pee returns for follow-up. She was recently seen in the ER for atrial fibrillation. Apparently, she has had what she describes as ' paroxysmal tachycardia' going back almost 30 years. Not clear if she was rather having SVT rather. Any case, she has been maintained on atenolol. During recent ER visit for atrial fibrillation, that dose has been increased from 75 mg 100 mg daily. Otherwise, hip surgery about a month ago or so. She does not have any history of coronary disease or myocardial infarction or cardiomyopathy. After the initial episode of atrial fibrillation during the ER visit, she apparently felt another episode today but then resolved. Otherwise, she feels okay but she has lot of stress in the family. [facility] Medical History PAF (paroxysmal atrial fibrillation) Cataract Personal history of COVID-19 Osteoarthritis Hypothyroidism (acquired) History of hepatitis Anxiety Seasonal allergies HTN (hypertension) Paroxysmal tachycardia Surgical History Hx of colonoscopy History of total right hip replacement History of lumpectomy of left breast History of pubovaginal sling Hx of partial thyroidectomy History of liver biopsy Family History (Updated 07/08/25 @ 14:02 by Velvet Morin) Mother CHF (congestive heart failure) Father Diabetes Social History (Updated 07/08/25 @ 14:02 by Velvet Morin) Are you a primary progressive care unit registered nurse to a significant other at home: No Do you presently have visiting nurse or other home services: No Alcohol intake: current Alcohol intake frequency: holidays/special occasions only Alcohol type: wine Patient Tobacco Use Status: Never used Tobacco Review of Systems Const Denies weakness ENT Denies dizziness Card Denies chest pain, Denies chest pain with activity, Denies syncope, Denies rapid heart rate, Denies pedal edema, Denies edema, Denies leg edema, Denies lig htheadedness, Reports palpitations, Denies dyspnea, Denies dyspnea on exertion and Denies orthopnea Resp Denies cough, Denies dyspnea and Denies dyspnea on exertion GI Denies hematochezia and Denies change in stool character Musc Denies abnormal gait, Denies muscle cramps, Denies muscle weakness, Denies numbness, Denies radiating pain into limb and Denies tingling Neuro Denies abnormal gait, Denies dizziness, Denies syncope, Denies numbness, Denies tingling and Denies weakness Endo Reports palpitations Physical Exam Vital Signs: Last Vital Signs Pulse 87 07/08/25 13:54 BP 138/70 07/08/25 13:54 BMI result Body Mass Index 24.5 Const General: comfortable and no acute distress Orientation/consciousness: patient oriented x3 HEENT Other: Unremarkable Head: Yes normal to inspection Neck Neck: Yes normal visual inspection Chest Chest palpation & inspection: normal inspection of the chest Resp Auscultation: clear to auscultation bilaterally Cardio Palpation: normal PMI Heart sounds: S1 normal heart sound present, S2 normal heart sound present, no gallops, no murmurs and no rubs GI Palpation (GI): Soft to palpation Back/Spine/Pelvis Other: unremarkable Skin General skin exam: no rashes or lesions noted Neuro General: patient oriented x3 Extrem General: Yes normal to inspection Psych Mental Status: mental status grossly normal Assessment & Plan Assessment & Plan (1) PAF (paroxysmal atrial fibrillation): Code(s): I48.0 - Paroxysmal atrial fibrillation Category: Medical (2) Paroxysmal tachycardia: Code(s): I47.9 - Paroxysmal tachycardia, unspecified Category: Medical Plan In the recent EKG from emergency room, atrial fibrillation at a rate of 130/Min. Subsequent EKGs shows sinus rhythm at 76/Min. Overall, recent episode of atrial fibrillation and patient described history of ? Paroxysmal SVT. We will start with an echocardiogram for cardiac function assessment. 2 week Holter monitor. With regard to medications, her usual atenolol doses 75 mg daily but it has been increased to 100 mg daily. For any breakthrough episodes, she can take an extra 50 mg daily. Beyond this, options would be an antiarrhythmic like Multaq or flecainide. We can also consider ablation. We will follow up after testing. Discussion Notes I discussed with the patient the management of her paroxysmal tachycardia and atrial fibrillation, including the continuation of her current medication regimen and the potential increase in dosage if necessary. We also talked about the need for an echocardiogram and a two-week monitor to evaluate her cardiac function. The patient was informed about the use of Eliquis for anticoagulation and the importance of monitoring her condition. We addressed her stress-related insomnia and the current use of lorazepam, advising her to follow up with her primary care physician for any adjustments. Regarding her recent hip replacement, I advised her to consult her orthopedic surgeon for specific guidance on resuming physical therapy. Patient was informed and verbally consented to the use of an ambient scribe for clinic note documentation during this visit. Orders: Orders CA echo transthoracic complete Today I48.0 - Paroxysmal atrial fibrillation ECG 14 day holter monitor Today I48.0 - Paroxysmal atrial fibrillation, R00.2 - Palpitations Medications: Changed From apixaban (Eliquis) 5 mg PO BID 60 tabs 0RF To apixaban (Eliquis) 5 mg PO BID 180 tabs 3RF 90 days Refilled atenolol 100 mg PO DAILY 90 tabs 3RF Patient Instructions: - Continue taking your current medications as prescribed. - If episodes of tachycardia persist, you may increase your medication to 150 mg daily. - Attend scheduled echocardiogram and monitoring appointments. - Continue taking Eliquis as prescribed for atrial fibrillation. - Follow up with your primary care physician regarding your insomnia medication. - Consult your orthopedic surgeon for guidance on resuming physical therapy. Coding Level of Care Code New Pt Level 4 (61769) Complex EM visit Add On G2211 Diagnoses PAF (paroxysmal atrial fibrillation) I48.0 Paroxysmal tachycardia I47.9
== END 2025-07-08 14:27 | disposition home or self-care (01) ==
LOC: HO.HCS 13:47
PROVIDERS: PCP Internal Medicine; Visit Provider Internal Medicine
DX: I48.0 Paroxysmal atrial fibrillation (principal); I47.9 Paroxysmal tachycardia, unspecified
CPT/HCPCS: 99204; G2211

== ENCOUNTER → 2025-07-08 13:46 | Outpatient (BNVA) | payer MEDICARE, SELFPAY | PROVIDERS: PCP Internal Medicine; Visit Provider Internal Medicine | DX: I48.0 Paroxysmal atrial fibrillation (principal); I47.9 Paroxysmal tachycardia, unspecified | CPT/HCPCS: 99202 ==

== ENCOUNTER → 2025-08-21 07:48 | Outpatient (REF) | payer MEDICARE, SELFPAY ==
--- OUTSIDE RECORDS SUMMARY | 2009-06-23 12:30 | XMS_ITS | Encounter Summary ---
Author Organization [facility] and [facility] Address [address] [place] [phone] Care Team Providers Care Media/Instructional Designer Name Role Phone Unavailable Primary Care Provider Unavailabl e Encounter Details Date Type Department Care Team (Latest Contact Info) Description 06/23/2009 12:30 PM EST Hospital Encounter [facility] Interventional Radiology [address] [place] [address] [phone] Ernestine Mack MD [address] [place] [phone] Social History Tobacco Use Types Packs/Day [...]
--- NOTE | 2025-08-21 07:51 | CA_ITS ---
Transthoracic Echocardiogram Patient (Last, First, Middle): Pee Richards, Gender: F Date of : 1940 Age: 84 Procedure Date: 08/21/2025 Procedure Type: Transthoracic Echocardiogram Location: OP Height: 167.64 cm Weight: 68.95 kg BSA: 1.78 m2 Heart Rate: 99 bpm BP: 138 / 70 mmHg Circuit Tester: SB Referring MD: Ron Mejia MD Symptoms: I48.0 - Paroxysmal atrial fibrillation Study Quality: Adequate ECG Rhythm: Sinus Conclusions: - The left ventricular systolic function is normal. The visually estimated ejection fraction is between 55-60%. - Aortic valve calcification, but no significant stenosis. Findings Left Ventricle Normal left ventricular cavity size. There is normal left ventricular wall thickness. The left ventricular systolic function is normal. The visually estimated ejection fraction is between 55-60%. There is no evidence of regional wall motion abnormalities. Evidence suggests grade I (mild) diastolic dysfunction. Focal hypertrophy of the basal septum. Right Ventricle Normal right ventricular cavity size and systolic function. Atria Both atria are normal in size. Aortic Valve There is moderate calcification of the aortic valve. There is mild aortic valve regurgitation. No significant aortic stenosis. Mitral Valve There is mild mitral annular calcification. There is trace mitral valve regurgitation. There is no mitral valve stenosis. Pulmonic Valve The pulmonic valve is likely normal. Tricuspid Valve There is trace tricuspid valve regurgitation. There is no evidence of pulmonary hypertension. Great Vessels The asc aorta is normal in size. Venous The inferior vena cava is normal in size and collapses greater than 50% with inspiration. Pericardium/Pleural There is no evidence of pericardial effusion. Prior Study Comparison No prior study available for comparison. Measurements 2D Linear Measurements IVSd: 0.82 0.6-0.9/0.6-1.0 cm LVIDd: 4.40 3.9-5.3/4.2-5.9 cm LVIDd Index: 2.47 2.4-3.2/2.2-3.1 cm/m2 LVIDs: 2.67 2.0-3.6 cm LVPWd: 0.60 0.7-1.1 cm LA Diam: 3.00 2.7-3.8/3.0-4.0 cm LAIDs Index: 1.69 1.5-2.3 cm/m2 LV Mass: 116.11 67-162/88-224 g LV Mass Index: 65.23 43-95/49-115 g/m2 LVOT Diam: 2.10 3.0+(-)1.3 cm 2D Systolic Function EF 4C: 53.30 >55% EF 2C: 52.10 >55% EF BiP: 51.00 >55% Mitral Valve MV Pk E: 0.67 MV PK A: 1.01 MV Decel Time: 124.00 E/A: 0.70 E'Lateral: 5.22 E'Medial: 4.24 E/E' Med: 15.90 E/E' Lat: 12.90 PHT: 36.00 MVA PHT: 6.11 Decel Hartley: 5.43 Aortic Valve AoV Pk Bipin: 1.96 AoV Mn Bipin: 1.36 AoV VTI: 0.39 AoV Pk Grad: 15.00 Aov Mn Grad: 8.00 PERICO Cont.VTI: 2.21 AI Pk Bipin: 4.86 AI Hartley: 5.10 LVOT LVOT Pk Bipin: 1.13 LVOT Mn Bipin: 0.83 LVOT VTI: 0.25 LVOT Pk Grad: 5.00 LVOT Mn Grad: 3.00 LVOT Diam: 2.10 LVOT Area: 3.46 Diastolic Function MV Pk E: 0.67 MV Pk A: 1.01 E/A: 0.70 E'Medial: 4.24 E/E' Med: 15.90 E' Laterial: 5.22 E/E' Lat: 12.90 Right Ventricle TAPSE (mm): 19.90 TVS' Bipin: 12.90 Tricuspid Valve TR Pk Bipin: 2.31 TR Pk Grad: 21.00 RA Press: 3.00 RVSP: 24.00 Great Vessels Aorta Sinus of Valsalva: 3.30 2.0-3.5 cm Ao Asc: 3.20 2.1-3.4 cm Pulmonary Veins Pulm Vein S/D 1.40 Pulmonary Valve PV Pk Bipin: 0.71 Peak PV Grad: 2.00 Updated in Other Vendor System with Status of Final Ron Mejia MD electronically signed on 08/23/2025 3:02:36 PM with status of Final
--- OUTSIDE RECORDS SUMMARY | 2025-08-21 07:52 | XMS_ITS | Encounter Summary ---
Author Organization [facility] Address [address] [place] [phone] Phone Care Team Providers Care Administrative Associate Name Role Phone Alessandro Chang MD Primary Care Provider Isael Romero MD Unavailable [phone] Cintia Pate PA-C Unavailable [phone] Encounter Details Date Type Department Care Team (Late st Contact Info) Description 06/14/2022 Procedure Pass OR Admitting Dept - Virtual Department [address] [place] [phone] Social History Tobacco Use Types Packs/Day Years [...] Care Team (Late st Contact Info) Description 10/21/2025 Procedure Pass OR Admitting Dept - Virtual Department [address] [place] [address] documented as of this encounter Visit Diagnoses Not on filedocumented in this encounter Additional Health Concerns Infection Onset Date Last Indicated Resolved Time CoV-Risk 06/25/2023 06/25/2023 07/06/2023 1:22 AM EST CoV-Risk 12/04/2024 12/04/2024 12/15/2024 1:21 AM EDT documented as of this encounter Care Teams Administrative Associate Relationship Specialty Start Date End Date Alessandro Chang MD [address] [place] [address] PCP - General 06/09/17 Isael Romero MD [address] [place] [address] [email or web address] Historical LMR Provider 06/11/17 Cintia Pate PA-C [address] [place] [address] Orth[facility] Sports Medicine, [place] [address] [email or web address] Historical LMR Provider 06/11/17 documented as of this encounter Additional Source Comments The information contained in this document represents components of the legal health record. It is not the complete legal health record.[facility]
--- OUTSIDE RECORDS SUMMARY | 2025-08-21 07:52 | XMS_ITS | Encounter Summary ---
Author Organization [facility] and [facility] Address [address] [place] [address] Care Team Providers Care Upper Leather Cutter Name Role Phone Unavailable Primary Care Provider Unavailabl e Encounter Details Date Type Department Care Team ([facility] st Contact Info) Description 12/13/2016 Scanned Document [facility] [address] [place] [address] External, Provider Social History Tobacco Use Types [...]
--- OUTSIDE RECORDS SUMMARY | 2025-08-21 07:52 | XMS_ITS | Encounter Summary ---
Author Organization [facility] and [facility] Address [address] [place] [phone] Care Team Providers Care Tub Wash Operator Name Role Phone Unavailable Primary Care Provider Unavailabl e Encounter Details Date Type Department Care Team (Late st Contact Info) Description 12/04/2015 Scanned Document [facility] 40 [facility] [address] [place] [address] External, Provider Social History Tobacco Use Types [...] Date/Time Associated Diagnosis Comments LAB SCAN Routine 11/26/2015 documented in this encounter Results * Lab Scan (11/26/2015) Blood specimen (specimen) us Provider External LAB BLOOD ORDERABLES Final Res ult [facility] [place], [place], [facility] documented in this encounter Visit Diagnoses Not on filedocumented in this encounter
--- OUTSIDE RECORDS SUMMARY | 2025-08-21 07:52 | XMS_ITS | Encounter Summary ---
Author Organization [facility] Address [address] [place] [phone] Care Team Providers Care Professional Nurse Name Role Phone Unavailable Primary Care Provider Unavailabl e Encounter Details Date Type Department Care Team (Late st Contact Info) Description 03/04/2015 Scanned Document [facility] 40 [facility] [address] [place] [address] External, Provider Social History Tobacco Use Types [...] External LAB BLOOD ORDERABLES Final Res ult [facility] [place], [place], [facility] documented in this encounter Visit Diagnoses Not on filedocumented in this encounter
--- OUTSIDE RECORDS SUMMARY | 2025-08-21 07:52 | XMS_ITS | Encounter Summary ---
Author Organization [facility] and [facility] Address [address] [place] [phone] Care Team Providers Care Global Lead Name Role Phone Unavailable Primary Care Provider Unavailabl e Encounter Details Date Type Department Care Team (Late st Contact Info) Description 12/03/2014 Scanned Document [facility] 40 [facility] [address] [place] [address] External, Provider Social History Tobacco Use Types [...] External LAB BLOOD ORDERABLES Final Res ult [facility] [place], [place], [facility] documented in this encounter Visit Diagnoses Not on filedocumented in this encounter
--- OUTSIDE RECORDS SUMMARY | 2025-08-21 07:52 | XMS_ITS | Encounter Summary ---
Author Organization [facility] and [facility] Address [address] [place] [phone] Care Team Providers Care Mink Farmer Name Role Phone Unavailable Primary Care Provider Unavailabl e Encounter Details Date Type Department Care Team ([facility] st Contact Info) Description 12/06/2017 Scanned Document [facility] [address] [place] [address] [address] Ernestine Mack MD [address] [place] [phone] Social History Tobacco Use Types Packs/Day [...]
--- OUTSIDE RECORDS SUMMARY | 2025-08-21 07:52 | XMS_ITS | Encounter Summary ---
Author Organization [facility] and [facility] Address [address] [place] [phone] Care Team Providers Care Depot Agent Name Role Phone Unavailable Primary Care Provider Unavailabl e Encounter Details Date Type Department Care Team ([facility] st Contact Info) Description 09/13/2017 Scanned Document [facility] [address] [address] Ernestine Mack MD [address] [place] [phone] Social History Tobacco Use Types Packs/Day [...]
--- OUTSIDE RECORDS SUMMARY | 2025-08-21 07:52 | XMS_ITS | Encounter Summary ---
Author Organization [facility] Address [address] [place] [phone] Phone Care Team Providers Care Day Worker Name Role Phone Alessandro Chang MD Primary Care Provider Isael Romero MD Unavailable Cintia Ptae PA-C Unavailable [phone] Encounter Details Date Type Department Care Team (Late st Contact Info) Description 03/08/2023 Ancillary Orders [facility] [address] [place] [phone] Marcio Saba PA-C [address] [place] [address] Orth[facility], [place], [place] [phone] Social History Tobacco Use Types Packs/Day Years [...] Pass OR Admitting Dept - Virtual Department [address] [place] [phone] documented as of this encounter Visit Diagnoses Not on filedocumented in this encounter Additional Health Concerns Infection Onset Date Last Indicated Resolved Time CoV-Risk 06/25/2023 06/25/2023 07/06/2023 1:22 AM EST CoV-Risk 12/04/2024 12/04/2024 12/15/2024 1:21 AM EDT documented as of this encounter Care Teams Day Worker Relationship Specialty Start Date End Date [facility] MD [address] [place] [address] PCP - General 06/09/17 Isael Romero MD [address] [place] [phone] [email or web address] Historical LMR Provider 06/11/17 Cintia Pate PA-C [address] [place] [address] [facility], [facility] [place] [address] [email or web address] Historical LMR Provider 06/11/17 documented as of this encounter Additional Source Comments The information contained in this document represents components of the legal health record. It is not the complete legal health record.[facility]
--- OUTSIDE RECORDS SUMMARY | 2025-08-21 07:52 | XMS_ITS | Encounter Summary ---
Author Organization [facility] and [facility] Address [address] [place] [phone] Care Team Providers Care Director Of Search Engine Optimization Name Role Phone Unavailable Primary Care Provider Unavailabl e Encounter Details Date Type Department Care Team ([facility] st Contact Info) Description 11/10/2020 Scanned Document [facility] [address] [place] [address] [place] [address] Ernestine Mack MD [address] [place] [phone] Social History Tobacco Use Types Packs/Day [...]
--- OUTSIDE RECORDS SUMMARY | 2025-08-21 07:52 | XMS_ITS | Encounter Summary ---
Author Organization [facility] and [facility] Address [address] [place] [phone] Care Team Providers Care Regional Ehs Manager Name Role Phone Unavailable Primary Care Provider Unavailabl e Encounter Details Date Type Department Care Team (Late st Contact Info) Description 06/01/2016 Scanned Document [facility] 40 [facility] [address] [place] [address] External, Provider Social History Tobacco Use Types [...] External LAB BLOOD ORDERABLES Final Res ult [facility] [place], [place], [facility] documented in this encounter Visit Diagnoses Not on filedocumented in this encounter
--- OUTSIDE RECORDS SUMMARY | 2025-08-21 07:52 | XMS_ITS | Encounter Summary ---
Author Organization [facility] and [facility] Address [address] [place] [phone] Care Team Providers Care Flatbed Owner Operator Name Role Phone Unavailable Primary Care Provider Unavailabl e Encounter Details Date Type Department Care Team (Late st Contact Info) Description 04/03/2020 Scanned Document [facility] [address] [place] [phone] Ernestine Mack MD [address] [place] [phone] Social History Tobacco Use Types Packs/Day [...]
--- OUTSIDE RECORDS SUMMARY | 2025-08-21 07:52 | XMS_ITS | Encounter Summary ---
Author Organization [facility] and [facility] Address [address] [place] [address] Care Team Providers Care Exterminator Helper Name Role Phone Unavailable Primary Care Provider Unavailabl e Encounter Details Date Type Department Care Team ([facility] st Contact Info) Description 06/30/2017 Scanned Document [facility] [address] [place] [address] External, Provider Social History Tobacco Use Types [...]
--- OUTSIDE RECORDS SUMMARY | 2025-08-21 07:52 | XMS_ITS | Encounter Summary ---
Author Organization [facility] Address [address] [facility] [address] [place] [phone] Phone Care Team Providers Care Software Tester Name Role Phone Alessandro Chang MD Primary Care Provider Isael Romero MD Unavailable Cintia Pate PA-C Unavailable [phone] Encounter Details Date Type Department Care Team (Late st Contact Info) Description 03/08/2023 Ancillary Orders [address] [phone] Marcio Saba PA-C [address] [place] [address] [facility], [place], [place] [phone] [email or web address] Left knee pain, unspecified chronicity Social History Tobacco Use Types Packs/Day Years Used Date Smoking Tobacco: Never Smokeless Tobacco: Never Alcohol Use Standard Drinks/Week Comments Yes 1 (1 standard drink = 0.6 oz pur e alcohol) daily Education Answer Date Recorded Are you interested in more education? Not on ladairus e 12/17/2022 Are you concerned about learning? [...] Pass OR Admitting Dept - Virtual Department [address] [place] [phone] documented as of this encounter Results * XR KNEE 4 OR MORE VIEWS (LEFT) (03/08/2023 10:48 AM EDT) Narrative SYSTEMGENERATED, DOCUMENTATION - 03/08/2023 10:48 AM EDT This image report has been auto-finalized and has not been read by a Radiologist. Interpretation has been included in the provider encounter note for this date of service. us Marcio Saba PA-C IMNyla XR LOWER EXTREMITY Fi nal Result documented in this encounter Visit Diagnoses Diagnosis Left knee pain, unspecified chronicity Left knee pain, unspecified chronicity documented in this encounter Additional Health Concerns Infection Onset Date Last Indicated Resolved Time CoV-Risk 06/25/2023 06/25/2023 07/06/2023 1:22 AM EST CoV-Risk 12/04/2024 12/04/2024 12/15/2024 1:21 AM EDT documented as of this encounter Care Teams Software Tester Relationship Specialty Start Date End Date Alessandro Chang MD [address] [place] [phone] PCP - General 06/09/17 Isael Romero MD [address] [place] [address] [email or web address] Historical LMR Provider 06/11/17 Cintia Pate PA-C [address] [place] [address] [facility], [place] [address] [email or web address] Historical LMR Provider 06/11/17 documented as of this encounter Additional Source Comments The information contained in this document represents components of the legal health record. It is not the complete legal health record.[facility]
--- OUTSIDE RECORDS SUMMARY | 2025-08-21 07:52 | XMS_ITS | Encounter Summary ---
Author Organization [facility] and [facility] Address [address] [place] [address] Care Team Providers Care City Carrier Assistant Name Role Phone Unavailable Primary Care Provider Unavailabl e Encounter Details Date Type Department Care Team ([facility] st Contact Info) Description 03/12/2017 Scanned Document [facility] 40 [facility] [address] [place] [address] External, Provider Social History Tobacco Use Types [...]
--- OUTSIDE RECORDS SUMMARY | 2025-08-21 07:52 | XMS_ITS | Encounter Summary ---
Author Organization [facility] Address [address] [facility] [address] [place] [address] Phone Care Team Providers Care Cuff Slitter Name Role Phone Alessandro Chang MD Primary Care Provider Isael Romero MD Unavailable [phone] Cintia Pate PA-C Unavailable Encounter Details Date Type Department Care Team (Latest Contact Info) Description 02/15/2025 Ancillary Orders [address] [phone] Narda Cerna MD [address] [place] [address] Orth[facility]ics [facility] Medicine, [place], [place] [phone] [email or web address] Osteoarthritis of left hip, unspecified osteoarthritis [...] Pass OR Admitting Dept - Virtual Department [address] [place] [address] Pending Results Name Type Priority Associated Diagnoses Date /Time FL Guidance Needle Placement Non-Spine Imaging Routine Osteoarthritis of left hip, unspecified osteoarthritis type 02/19/2025 11:22 AM EDT Scheduled Orders Name Type Priority Associated Diagnoses Orde r Schedule FL Guidance Needle Placement Non-Spine Imaging Routine Osteoarthritis of left hip, unspecified osteoarthritis type 1 Occurrences starting 02/15/2025 until 05/18/2025 documented as of this encounter Visit Diagnoses Diagnosis Osteoarthritis of left hip, unspecified osteoarthritis type- Primary documented in this encounter Care Teams Cuff Slitter Relationship Specialty Start Date End Date Alessandro Chang MD [address] [place] [address] PCP - General 06/09/17 Isael Romero MD [address] [place] [address] [email or web address] Historical LMR Provider 06/11/17 Cintia Pate PA-C [address] [place] [address] Orthopedics & Sports Medicine, [place] [address] [email or web address] Historical LMR Provider 06/11/17 documented as of this encounter Additional Source Comments The information contained in this document represents components of the legal health record. It is not the complete legal health record.[facility]
--- OUTSIDE RECORDS SUMMARY | 2025-08-21 07:52 | XMS_ITS | Clinical Summary ---
Author Organization [address] Address [address] [place] [phone] Care Team Providers Care Special Shopper Name Role Phone Unavailable Primary Care Provider [...] Date Last Done Comments HIV screening 11/22/1955 Tetanus adult (Td q 10,TDAP once) 1962 Lipid disorder screening 1982 Diabetes screening 11/22/1987 Pneumococcal Vaccine (50+ ye ars) (1 of 1 - PCV) 1992 Shingles vaccine (Shingrix) (1 of 2 - [...]
--- OUTSIDE RECORDS SUMMARY | 2025-08-21 07:52 | XMS_ITS | Encounter Summary ---
Author Organization [facility] and [facility] Address [address] [place] [address] Care Team Providers Care Mill Controller Name Role Phone Unavailable Primary Care Provider Unavailabl e Encounter Details Date Type Department Care Team (Late st Contact Info) Description 09/22/2015 Scanned Document [facility] 40 [facility] [address] [place] [address] External, Provider Social History Tobacco Use Types [...] External LAB BLOOD ORDERABLES Final Res ult [facility] [place], [place], [facility] documented in this encounter Visit Diagnoses Not on filedocumented in this encounter
--- OUTSIDE RECORDS SUMMARY | 2025-08-21 07:52 | XMS_ITS | Encounter Summary ---
Author Organization [facility] Address [address] [facility] [address] [place] [address] Phone Care Team Providers Care Dock Boss Name Role Phone Alessandro Chang MD Primary Care Provider Isael Romero MD Unavailable Cintia Pate PA-C Unavailable [phone] Encounter Details Date Type Department Care Team (Late st Contact Info) Description 04/04/2024 Procedure Pass OR Admitting Dept - Virtual Department [address] [place] [address] Social History Tobacco Use Types Packs/Day Years [...] 10/21/2025 Procedure Pass OR Admitting Dept - [facility] Department [address] [place] [address] documented as of this encounter Visit Diagnoses Not on filedocumented in this encounter Additional Health Concerns Infection Onset Date Last Indicated Resolved Time CoV-Risk 12/04/2024 12/04/2024 12/15/2024 1:21 AM EDT documented as of this encounter Care Teams Dock Boss Relationship Specialty Start Date End Date Alessandro Chang MD [address] [place] [address] PCP - General 06/09/17 Isael Romero MD [address] [place] [address] [email or web address] Historical LMR Provider 06/11/17 Cintia Pate PA-C [address] [place] [address] Orthopedics [facility] Sports Medicine, [place] [address] [email or web address] Historical LMR Provider 06/11/17 documented as of this encounter Additional Source Comments The information contained in this document represents components of the legal health record. It is not the complete legal health record.[facility]
--- OUTSIDE RECORDS SUMMARY | 2025-08-21 07:52 | XMS_ITS | Encounter Summary ---
Author Organization [facility] and [facility] Address [address] [place] [address] Care Team Providers Care Auto Roller Name Role Phone Unavailable Primary Care Provider Unavailabl e Encounter Details Date Type Department Care Team ([facility] st Contact Info) Description 08/10/2017 Scanned Document [facility] 40 [facility] [address] [place] [address] External, Provider Social History Tobacco Use Types [...]
--- OUTSIDE RECORDS SUMMARY | 2025-08-21 07:52 | XMS_ITS | Encounter Summary ---
Author Organization [facility] Address [address] [place] [address] Phone Care Team Providers Care Outreach Librarian Name Role Phone Alessandro Chang MD Primary Care Provider Alessandro Chang MD Unavailable [phone] Isael Romero MD Unavailable Cintia Pate PA-C Unavailable Encounter Details Date Type Department Care Team (Latest Contact Info) Description 06/18/2017 Transcribe Orders [facility] [address] [place] [address] Isael Romero MD [address] [place] [address] [phone] [email or web address] Pre-op evaluation (Primary Dx) Social History Tobacco [...] OR Admitting Dept - Virtual Department 30 [facility] [place] [address] documented as of this encounter Results * Type and Screen (ABO,Rh,Antibody Screen) (06/18/2017 11:01 AM EDT) ABO/Rh O Positive [facility] Antibody Screen Negative [facility] BB Band [id number] [facility] Expiration Date of Sample 06/21/2017 [facility] Resulting Agency [facility] Blood 06/18/2017 11:0 1 AM EDT 06/18/2017 11:20 AM EDT us Isael Romero MD LAB BLOOD BANK TEST ORDER GUILLERMO Edited Result - Final [facility] [address] [place] [address] documented in this encounter Visit Diagnoses Diagnosis Pre-op evaluation- Primary documented in this encounter Additional Health Concerns Infection Onset Date Last Indicated Resolved Time CoV-Risk 06/25/2023 06/25/2023 07/06/2023 1:22 AM EST CoV-Risk 12/04/2024 12/04/2024 12/15/2024 1:21 AM EDT documented as of this encounter Care Teams Outreach Librarian Relationship Specialty Start Date End Date Alessandro Chang MD [address] [place] [address] PCP - General 06/09/17 Alessandro Chang MD [address] [place] [address] Historical LMR Provider 06/11/17 2 Isael Romero MD [address] [place] [address] [email or web address] Historical LMR Provider 06/11/17 Cintia Pate PARadhikaC 4 [facility], [facility] [place] [address] [email or web address] Historical LMR Provider 06/11/17 documented as of this encounter Additional Source Comments The information contained in this document represents components of the legal health record. It is not the complete legal health record.[facility]
--- OUTSIDE RECORDS SUMMARY | 2025-08-21 07:52 | XMS_ITS | Encounter Summary ---
Author Organization [facility] and [facility] Address [address] [place] [phone] Care Team Providers Care Field Enumerator Name Role Phone Unavailable Primary Care Provider Unavailabl e Encounter Details Date Type Department Care Team (Late st Contact Info) Description 03/04/2016 Scanned Document [facility] 40 [facility] [address] [place] [address] External, Provider Social History Tobacco Use Types [...] External LAB BLOOD ORDERABLES Final Res ult [facility] [place], [place], [facility] documented in this encounter Visit Diagnoses Not on filedocumented in this encounter
--- OUTSIDE RECORDS SUMMARY | 2025-08-21 07:52 | XMS_ITS | Encounter Summary ---
Author Organization [facility] and [facility] Address [address] [place] [address] Care Team Providers Care Inspector Precision Assembly Name Role Phone Unavailable Primary Care Provider Unavailabl e Encounter Details Date Type Department Care Team ([facility] st Contact Info) Description 04/21/2021 Scanned Document [facility] [address] [place] [address] [place] [address] Ernestine Mack MD [address] [phone] Social History Tobacco Use Types Packs/Day [...]
--- OUTSIDE RECORDS SUMMARY | 2025-08-21 07:52 | XMS_ITS | Encounter Summary ---
Author Organization [facility] and [facility] Address [address] [place] [phone] Care Team Providers Care Professor Of Social Work Name Role Phone Unavailable Primary Care Provider Unavailabl e Encounter Details Date Type Department Care Team (Late st Contact Info) Description 06/06/2015 Scanned Document [facility] 40 [facility] [address] [place] [address] External, Provider Social History Tobacco Use Types [...] External LAB BLOOD ORDERABLES Final Res ult [facility] [place], [place], [facility] documented in this encounter Visit Diagnoses Not on filedocumented in this encounter
--- OUTSIDE RECORDS SUMMARY | 2025-08-21 07:52 | XMS_ITS | Encounter Summary ---
Author Organization [facility] and [facility] Address [address] [place] [address] Care Team Providers Care Plant Engineer Name Role Phone Unavailable Primary Care Provider Unavailabl e Encounter Details Date Type Department Care Team ([facility] st Contact Info) Description 12/02/2017 Scanned Document [facility] [address] [address] Ernestine Mcak MD [address] [place] [phone] Social History Tobacco Use Types Packs/Day [...]
--- OUTSIDE RECORDS SUMMARY | 2025-08-21 07:52 | XMS_ITS | Encounter Summary ---
Author Organization [facility] and [facility] Address [address] [place] [address] Care Team Providers Care Monument Setter Name Role Phone Unavailable Primary Care Provider Unavailabl e Encounter Details Date Type Department Care Team (Late st Contact Info) Description 02/18/2022 Scanned Document [facility] SCHEDULING [address] [place], [place] [phone] Ernestine Mack MD [address] [phone] Social History Tobacco Use Types [...]
--- OUTSIDE RECORDS SUMMARY | 2025-08-21 07:52 | XMS_ITS | Encounter Summary ---
Author Organization [facility] and [facility] Address [address] [place] [phone] Care Team Providers Care Urban Planner Name Role Phone Unavailable Primary Care Provider Unavailabl e Encounter Details Date Type Department Care Team ([facility] st Contact Info) Description 06/23/2017 Scanned Document [facility] [address] [place] [address] Ernestine Mack MD [address] [place] [phone] Social History Tobacco Use Types Packs/Day [...]
--- OUTSIDE RECORDS SUMMARY | 2025-08-21 07:52 | XMS_ITS | Encounter Summary ---
Author Organization [facility] Address [address] [facility] [address] [place] [address] Phone Care Team Providers Care Hat Binder Name Role Phone Alessandro Chang MD Primary Care Provider Isael Romero MD Unavailable Cintia Pate PA-C Unavailable [phone] Encounter Details Date Type Department Care Team (Late st Contact Info) Description 05/22/2025 Procedure Pass OR Admitting Dept - Virtual Department [address] [place] [address] Social History Tobacco Use Types Packs/Day Years [...] 10/21/2025 Procedure Pass OR Admitting Dept - [facility] Department [address] [place] [address] documented as of this encounter Visit Diagnoses Not on filedocumented in this encounter Care Teams Hat Binder Relationship Specialty Start Date End Date Alessandro Chang MD [address] [place] [address] PCP - General 06/09/17 Isael Romero MD [address] [place] [address] [email or web address] Historical LMR Provider 06/11/17 Cintia Pate PA-C [address] [place] [address] Orthopedics & Sports Medicine, [place] [address] [email or web address] Historical LMR Provider 06/11/17 documented as of this encounter Additional Source Comments The information contained in this document represents components of the legal health record. It is not the complete legal health record.[facility]
--- OUTSIDE RECORDS SUMMARY | 2025-08-21 07:52 | XMS_ITS | Data Portability ---
Author Organization [employer] , [employer] - [facility] Address [address], [facility] [address] [place] [address] Assessment Encounter Date Assessment Date Assessment LastModified by Organization Details LastModified Time 05/09/2025 05/09/2025 DATE OF SURGERY: 05/27/2025 ADMITTING DIAGNOSIS: Osteoarthritis LEFT hip REASON FOR ADMISSION: Left total hip arthroplasty at [facility] SURGEON: Dr. Fry HISTORY: The patient [...] on atenolol - does not follow with [facility]. Has not had any recent symptoms. White coat syndrome without hypertension - brought in a BP log that we reviewed and number were satisfactory. 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 Was followed by doc in [place], no longer followed by them. Bilateral cataracts [...] own ADLs and IADL's. She volunteers at [employer], was walking until hip starting hurting in [...] d/t food poising in 2008 - no supervisor intermediates complications, no longer follows with specialist GERIATRIC [...] opioids), Maintain hydration and nutrition, Consider constant dermatology technician or family member at bedside for the [...] Celebrex ASA Pantoprazole POST OP CONTACT: [place] [phone] Thank you for referring your patient to [facility] for preoperative risk assessment. Please do not hesitate to reach out should you have any questions or if we can be of further service to you or your patients. Warm regards, Michelle Watosn-KAMINI Gillis Total time spent: 60 minutes today [...] Vitals Date Recorded Heart rate Oxygen saturation Body temperature Body weight Body mass index (BMI) Body height Systolic And Diastolic Provider Name and Address Organization Details Last Updated DateTime 5 73 /min 98 % 97.5 [degF] 44943 g 25.3 kg/m2 167.64 cm 165/97 mm[Hg] [facility] RAYMON ROSMERY 5 11:10:47 Social History None recorded. Functional [...] Codes Diagnosis Note 398 Michael May MD [address] [place] [address] 05/09/2025 10:53:40 05/09/2025 12:24:30 Preprocedural examination done 2262223693 75808 Z01.818 174313 Osteoarthr itis of left hip joint 0240511284 46730 M16.12 [id number] Supraventr icular tachycardia 1919707 I47.10 29091 Autoimmune hepatitis 408 453603 K75.4 144672 Acquired hypothyroidism 847974855 E03.9 95243 Labile hyp ertension due to being in a clinical environment 017493914 R03.0 [id number] Health Concerns Section Related Observation LastModified by Organization Detai ls LastModified Time None Recorded Concern Status LastModified by Organization Details LastModified Time None Recorded Advance Directives Directive None Recorded Payers Insurance Date Sequence Insurance Name Policy Number Policy Barboza Covered Member ID Barboza Member ID Guarantor Name 05/16/2025 1 [place] [employer] Pee Richards [id number] Pee Richards 05/16/2025 2 [place] [id number] Pee Richards [id number] Pee Richards Notes Date Note Type Note Provider Name and Address Organization Details Recorded Time 05/09/2025 text/html Preop HPIReporte d by Patient Patient presents today for pre-operative evaluation. MICHELLE WATSON-CHICHI GILLIS [address] [facility] [address], [place], [address], [facility] RAYMON BOTELLO 05/09/2025 16:45:54 OBGyn Episode No OBEpisode recorded.
--- OUTSIDE RECORDS SUMMARY | 2025-08-21 07:52 | XMS_ITS | Encounter Summary ---
Author Organization [facility] and [facility] Address [address] [place] [phone] Care Team Providers Care Automobile Detailer Name Role Phone Unavailable Primary Care Provider Unavailabl e Encounter Details Date Type Department Care Team ([facility] st Contact Info) Description 10/11/2017 Scanned Document [facility] [address] [place] [address] Ernestine Mack MD [address] [place] [phone] Social History Tobacco Use Types Packs/Day [...]
--- OUTSIDE RECORDS SUMMARY | 2025-08-21 07:52 | XMS_ITS | Encounter Summary ---
Author Organization [facility] and [facility] Address [address] [place] [phone] Care Team Providers Care Dough Braker Name Role Phone Unavailable Primary Care Provider Unavailabl e Encounter Details Date Type Department Care Team (Late st Contact Info) Description 09/20/2016 Scanned Document [facility] [address] [place] [address] External, Provider Social History Tobacco Use Types [...] External LAB BLOOD ORDERABLES Final Res ult [facility] [place], [place], [facility] documented in this encounter Visit Diagnoses Not on filedocumented in this encounter
--- OUTSIDE RECORDS SUMMARY | 2025-08-21 07:53 | XMS_ITS | Encounter Summary ---
Author Organization [facility] Address [address] [place] [address] [place] [address] Phone Care Team Providers Care Appliance Servicer Name Role Phone Alessandro Chang MD Primary Care Provider Alessandro Chang MD Unavailable Isael Romero MD Unavailable Cintia Pate PA-C Unavailable Encounter Details Date Type Department Care Team (Latest Contact Info) Description 06/11/2017 Ancillary Orders [facility] [address] [place] [address] [phone] Cintia Pate PA-C [address] [place] [address] Orthopedics [facility] Sports Medicine, [place], [place] [phone] [email or web address] Status post revision of total [...] Pass OR Admitting Dept - Virtual Department [address] [place] [address] documented as of this encounter Results * XR HIP 1 VW RIGHT PLUS PELVIS (07/06/2017 12:26 PM EST) Narrative Petrona Kilgore - 07/06/2017 12:27 PM EST This image report has been auto-finalized and has not been read by a Radiologist. Interpretation has been included in the provider encounter note for this date of service. 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 documented in this encounter Additional Health Concerns Infection Onset Date Last Indicated Resolved Time CoV-Risk 06/25/2023 06/25/2023 07/06/2023 1:22 AM EST CoV-Risk 12/04/2024 12/04/2024 12/15/2024 1:21 AM EDT documented as of this encounter Care Teams Appliance Servicer Relationship Specialty Start Date End Date Alessandro Chang MD [address] [place] [address] PCP - General 06/09/17 Alessandro Chang MD [address] [place] [address] Historical LMR Provider 06/11/17 2 Isael Romero MD [address] [place] [address] [email or web address] Historical LMR Provider 06/11/17 Cintia Pate PA-C [address] [place] [address] [facility], [place] [address] [email or web address] Historical LMR Provider 06/11/17 documented as of this encounter Additional Source Comments The information contained in this document represents components of the legal health record. It is not the complete legal health record.[facility]
--- OUTSIDE RECORDS SUMMARY | 2025-08-21 07:53 | XMS_ITS | Encounter Summary ---
Author Organization [facility] Address [address] [facility] [address] [place] [address] Phone Care Team Providers Care Ict Business Analyst Name Role Phone Alessandro Chang MD Primary Care Provider Isael Romero MD Unavailable [phone] Cintia Pate PA-C Unavailable [phone] Encounter Details Date Type Department Care Team (Late st Contact Info) Description 04/06/2023 Procedure Pass OR Admitting Dept - Virtual Department [address] [place] [address] Social History Tobacco Use Types Packs/Day Years [...] OR Admitting Dept - Virtual Department [address] [place] [address] documented as of this encounter Visit Diagnoses Not on filedocumented in this encounter Additional Health Concerns Infection Onset Date Last Indicated Resolved Time CoV-Risk 06/25/2023 06/25/2023 07/06/2023 1:22 AM EST CoV-Risk 12/04/2024 12/04/2024 12/15/2024 1:21 AM EDT documented as of this encounter Care Teams Ict Business Analyst Relationship Specialty Start Date End Date Alessandro Chang MD [address] [place] [address] PCP - General 06/09/17 Isael Romero MD [address] [place] [address] [email or web address] Historical LMR Provider 06/11/17 Cintia Pate PA-C [address] [place] [address] Orthopedics & Sports Medicine, [place] [address] [email or web address] Historical LMR Provider 06/11/17 documented as of this encounter Additional Source Comments The information contained in this document represents components of the legal health record. It is not the complete legal health record.[facility]
--- OUTSIDE RECORDS SUMMARY | 2025-08-21 07:53 | XMS_ITS | Encounter Summary ---
Author Organization [facility] and [facility] Address [address] [place] [address] Care Team Providers Care Child Caregiver Private Home Name Role Phone Unavailable Primary Care Provider Unavailabl e Encounter Details Date Type Department Care Team (Late st Contact Info) Description 03/07/2019 Scanned Document [facility] [address] [address] Ernestine Mack MD [address] [place] [phone] Social History Tobacco Use Types Packs/Day [...]
--- OUTSIDE RECORDS SUMMARY | 2025-08-21 07:53 | XMS_ITS | Encounter Summary ---
Author Organization [facility] and [facility] Address [address] [place] [phone] Care Team Providers Care Vp Data Name Role Phone Unavailable Primary Care Provider Unavailabl e Encounter Details Date Type Department Care Team ([facility] st Contact Info) Description 09/04/2018 Scanned Document [facility] [address] [place] [address] Ernestine Mack MD [address] [place] [phone] Social History Tobacco Use Types Packs/Day [...]
--- OUTSIDE RECORDS SUMMARY | 2025-08-21 07:53 | XMS_ITS | Encounter Summary ---
Author Organization [facility] and [facility] Address [address] [place] [phone] Care Team Providers Care Pre Billing Specialist Name Role Phone Unavailable Primary Care Provider Unavailabl e Encounter Details Date Type Department Care Team ([facility] st Contact Info) Description 05/28/2010 Scanned Document [facility] [address] [place] [address] 40 [facility] [address] [place] [address] External, Provider Social History Tobacco Use Types [...]
--- OUTSIDE RECORDS SUMMARY | 2025-08-21 07:53 | XMS_ITS | Encounter Summary ---
Author Organization [facility] and [facility] Address [address] [place] [address] Care Team Providers Care Cash Applications Coordinator Name Role Phone Unavailable Primary Care Provider Unavailabl e Encounter Details Date Type Department Care Team (Late st Contact Info) Description 08/28/2019 Scanned Document [facility] [address] [place] [address] Ernestine Mack MD [address] [place] [phone] Social History Tobacco Use Types Packs/Day [...]
--- OUTSIDE RECORDS SUMMARY | 2025-08-21 07:53 | XMS_ITS | Clinical Summary ---
Author Organization [facility] Address [address] [address] Phone Care Team Providers Care Inside Polisher Name Role Phone Alessandro Chang MD Primary [...] Encounters Date Type Department Care Team Description 08/07/2025 Orders Only [facility] [address] [place] [address] Marcio Saba PA-C Pre-op testing (Primary Dx) 07/25/2025 10:45 AM EST Office Visit [facility] [address] [place] [address] Morris Fry MD Menard-Johnston, Erin, PT Acute postoperative pain of left hip (Primary Dx) 07/15/2025 10:45 AM EST Office Visit [facility] [address] [address] Morris Fry MD Menard-Johnston, Erin, PT Acute postoperative pain of left hip (Primary Dx) 06/19/2025 10:45 AM EDT Office Visit [facility] [address] [address] Morris Fry MD Menard-Johnston, Erin, PT Acute postoperative pain of left hip (Primary Dx) 06/17/2025 2:15 PM EDT Office Visit [facility] [address] [address] Morris Fry MD Menard-Johnston, Erin, PT Acute postoperative pain of left hip (Primary Dx) 06/17/2025 Plan of Care Documentation [facility] [address] [address] 05/22/2025 Procedure Pass OR Admitting Dept - Virtual Department [address] [place] [address] from Last 3 Months Immunizations No known [...] OR Admitting Dept - Virtual Department [address] [place] [address] Health Maintenance Due Date Last Done Comments Adult Td,Tdap Booster 1942 TSH LEVEL 1942 DEPRESSION SCREENING 1954 HEPATITIS A VACCINES (1 of 2 - Risk 2-dose series) 1961 ZOSTER VACCINES (1 of 2) 1992 OSTEOPOROSIS SCREENING INITIAL (ONE-TIME) 11/22/2007 RSV VACCINE (1 - 1-dose 75+ series) 2017 INFLUENZA VACCINE (#1) 2025 COVID-19 VACCINE (2024- season) 2025 06/29/2021, 10/14/2020, 09/23/2020 CREATININE LEVEL [...] this topic Medical Devices Implanted Type Area Coal And Ash Supervisor Device Identifier Shelf Expiration Date Model / Serial / Lot Knee Insert 10xto 71 75mm Implant [facility] Kizzy 05 - [id number] Implanted:Qty: 1 on 04/06/2023 by Jase Jaime MD at [facility] NODATA Left: Knee [employer] 04/14/2025 [id number] / / [id number] Implant Hip 36mm Plus 0mm Femoral Head Modular [place] Chrome Ea Hip [id number] Implanted:Qty: 1 on 06/20/2017 by Isael Romero MD at [facility] STANDARD Right: Hip [employer] 05/07/2027 [id number] / / [id number] Shell Acetabular G7 4 Montano Size 52mm Hip [id number] Implanted:Qty: 1 on 06/20/2017 by Isael Romero MD at [facility] Right: Hip [employer] 02/02/2027 [id number] / / Implant Hip Stem Femoral Taperloc Porous [id number] High Ea Hip 01 - [id number] Implanted:Qty: 1 on 06/20/2017 by Isael Romero MD at [facility] Right: Hip [employer] 11/17/2026 [id number] / / [id number] Acetabular Liner High Wall Implanted:Qty: 1 on 06/20/2017 by Isael Romero MD at [facility] Right: Hip [employer] 03/30/2022 Cement Bone 1x40 Standard - [id number] Implanted:Qty: 1 on 04/06/2023 by Jase Jaime MD at [facility] Left: Knee EULALIA BI[employer]ET 07/21/2025 [id number] / / [id number] Knee Tray 71mm Plate Bone Primary Vanguard [place] I Beam Revision Interlock Cemented - [id number] Implanted:Qty: 1 on 04/06/2023 by Jaes Jaime MD at [facility] Left: Knee [employer] 01/11/2033 [id number] / / [id number] Peg [id number] Button Patella Knee Vanguard Uhmwpe 3 Series A Standard - [id number] Implanted:Qty: 1 on 04/06/2023 by Jase Jaime MD at [facility] Left: Knee [employer] 03/02/2027 [id number] / / [id number] Box Component 65.0mm Femoral Knee [employer]anguard Interlok [place] Posterior Stabilized Open Cemented Left - [id number] Implanted:Qty: 1 on 04/06/2023 by Jase Jaime MD at [facility] Left: Knee [employer] 01/07/2033 [id number] / / [id number] Procedures Procedure Name Priority Date/Time Associated Diagnosis Comments BASIC METABOLIC PANEL (BMP) Routine 02/08/2025 8:54 AM EDT Primary osteoarthritis of right knee from Last 3 Months or Most Recently Relevant to Health Maintenance Results * Basic metabolic panel (02/08/2025 8:54 AM EDT) SODIUM 135 133 - 146 mmol/L [facility] CHLORIDE 97 96 - 108 mmol/L [facility] POTASSIUM 4.5 3.3 - 5.1 mmol/L [facility] CO2 28 21 - 35 mmol/L [facility] BUN 15 6 - 19 mg/dL [facility] CREATININE 0.50 0.5 - 1.5 mg/dL [facility] GLUCOSE 89 70 - 99 mg/dL [facility] CALCIUM 9.2 8.4 - 10.3 mg/dL [facility] EGFR 94 >59 mL/min/1.7 3m2 [facility] Comment:Estimated glomerular filtration rate calculated using the CKD-EPI refit equation. ANION GAP 15 10 - 20 mmol/L [facility] Blood 02/08/2025 8:54 AM EDT 02/08/2025 8:56 AM EDT Jase Jaime MD LAB BLOOD BKR ORDERABLES Fin al Result [facility] [address] [place] [address] from Last 3 Months or Most Recently Relevant to Health Maintenance [place] [id number] [employer] MEDEX SUPPLEMENT MEDICARE PART A & B Member Subscriber Plan / Payer (Ef fective 2007-Present) Name:Pee Richards Member ID:[id number] Relation to Subscriber:Self Name:Pee Richards Subscriber ID:[id number] Payer ID:[id number] Group ID:Not on file Type:Medicare Address: [employer] [facility].[address] [address] [facility] MEDEX SUPPLEMENT MEDICARE PART A & B [employer]OSS MEDEX SUPPLEMENT MEDICARE PART A & B [employer] MEDEX SUPPLEMENT MEDICARE PART A & B [employer] MEDEX SUPPLEMENT MEDICARE PART A & B [employer] MEDEX SUPPLEMENT MEDICARE PART A & B [facility] MEDEX SUPPLEMENT MEDICARE PART A & B [employer] CROSS MEDEX SUPPLEMENT MEDICARE PART A & B [employer] MEDEX SUPPLEMENT Advance Directives For more information, please contact: [phone] (9AM - 5PM [facility], Tuesday-Tuesday) Documents on File Type Date Recorded Patient Pullman Car Clerk Expl anation Healthcare Proxy 06/24/2017 2:35 PM * Full Code (Latest Code Status on File) Date Activated Date Inactivated Comments 04/06/2023 8:29 AM Question Answer Comments Code Status Confirmed With: Patient * Full Code (Presumed) Date Activated Date Inactivated Comments 06/20/2017 11:42 AM 06/22/2017 5:02 PM Care Teams Inside Polisher Relationship Specialty Start Date End Date Alessandro Chang MD [address] [place] [address] PCP - General 06/09/17 Isael Romero MD [address] [place] [address] [email or web address] Historical LMR Provider 06/11/17 Cintia Pate PA-C [address] [place] [address] Orthopedics & Sports Medicine, [place] [address] [email or web address] Historical LMR Provider 06/11/17 Additional Source Comments The information contained in this document represents components of the legal health record. It is not the complete legal health record.[facility]
--- OUTSIDE RECORDS SUMMARY | 2025-08-21 07:53 | XMS_ITS | Encounter Summary ---
Author Organization [facility] and [facility] Address [address] [place] [phone] Care Team Providers Care Potato Peeling Machine Operator Name Role Phone Unavailable Primary Care Provider Unavailabl e Encounter Details Date Type Department Care Team (Late st Contact Info) Description 07/03/2009 Scanned Document [facility] [address] [place] [address] 40 [facility] [address] [place] [address] External, Provider Social History Tobacco Use Types [...]
--- OUTSIDE RECORDS SUMMARY | 2025-08-21 07:53 | XMS_ITS | Encounter Summary ---
Author Organization [facility] Address [address] [place] [phone] Care Team Providers Care Director Of Financial Planning Name Role Phone Unavailable Primary Care Provider Unavailabl e Encounter Details Date Type Department Care Team ([facility] st Contact Info) Description 06/05/2018 Scanned Document [facility] [address] [place] [address] Ernestine Mack MD [address] [place] [phone] Social History Tobacco Use Types Packs/Day [...]
--- OUTSIDE RECORDS SUMMARY | 2025-08-21 07:53 | XMS_ITS | Encounter Summary ---
Author Organization [facility] and [facility] Address [address] [place] [phone] Care Team Providers Care Marketing Assistant Manager Name Role Phone Unavailable Primary Care Provider Unavailabl e Encounter Details Date Type Department Care Team (Late st Contact Info) Description 05/31/2019 Scanned Document [facility] [address] [place] [address] Ernestine Mack MD [address] [place] [phone] Social History Tobacco Use Types Packs/Day [...]
--- OUTSIDE RECORDS SUMMARY | 2025-08-21 07:53 | XMS_ITS | Encounter Summary ---
Author Organization [facility] Address [address] [place] [address] Care Team Providers Care Hydrogen Power Plant Engineer Name Role Phone Unavailable Primary Care Provider Unavailabl e Encounter Details Date Type Department Care Team ([facility] st Contact Info) Description 08/28/2014 Scanned Document [facility] 40 [facility] [address] [place] [address] External, Provider Social History Tobacco Use Types [...]
--- OUTSIDE RECORDS SUMMARY | 2025-08-21 07:53 | XMS_ITS | Clinical Summary ---
Author Organization [facility] Address [address] [place] [address] Care Team Providers Care Framing Carpenter Name Role Phone Qamar Gross MD Unavailable Allergies No known active allergies Medications tobramycin-dexAM ETHasone (TOBRADEX) 0.3-0.1 % ophthalmic suspensionIndica tions:Chalazion of right eye, unspecified eyelid Administer 1-2 drops to the right eye 4 (four) times a day. 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 10 mL 3 4 025 Discontin ued(Reord er) Active Problems No known active problems Social History Tobacco Use Types Packs/Day Years [...] AM EST Office Visit [facility], [address] [phone] 32 Renato Emmanuel MD [address] [place] [address] Health Maintenance Due Date Last Done Comments [...] Influenza Vaccine 03/22/2025 COVID-19 Vaccine ( - 2024-2 6 season) 2025 Hepatitis B Vaccines Aged Out No long er eligible based on patient's age to complete this topic Insurance MEDICARE PART A & B [facility] Care Teams Framing Carpenter Relationship Specialty Start Date End Date Qamar Gross MD [address] [place] [address] Ophthalmology 01/29/25
--- OUTSIDE RECORDS SUMMARY | 2025-08-21 07:53 | XMS_ITS | Encounter Summary ---
Author Organization [facility] Address [address] [place] [address] [place] [address] Phone Care Team Providers Care Layout Mechanic Name Role Phone Alessandro Chang MD Primary Care Provider Alessandro Chang MD Unavailable [phone] Isael Romero MD Unavailable Cintia Pate PA-C Unavailable [phone] Encounter Details Date Type Department Care Team (Late st Contact Info) Description 06/20/2017 Prep for Surgery [facility] [address] [place] [address] [phone] Isael Romero MD [address] [place] [address] [phone] [email or web address] Social History Tobacco Use Types Packs/Day Years [...] Pass OR Admitting Dept - Virtual Department [address] [place] [phone] documented as of this encounter Visit Diagnoses Not on filedocumented in this encounter Additional Health Concerns Infection Onset Date Last Indicated Resolved Time CoV-Risk 06/25/2023 06/25/2023 07/06/2023 1:22 AM EST CoV-Risk 12/04/2024 12/04/2024 12/15/2024 1:21 AM EDT documented as of this encounter Care Teams Layout Mechanic Relationship Specialty Start Date End Date Alessandro Chang MD [address] [place] [address] PCP - General 06/09/17 Alessandro Chang MD [address] [place] [address] Historical LMR Provider 06/11/17 2 Isael Romero MD [address] [place] [address] [email or web address] Historical LMR Provider 06/11/17 Cintia Pate PA-C [address] [place] [address] Orth[facility]ics [facility] Sports Medicine, [place] [address] [email or web address] Historical LMR Provider 06/11/17 documented as of this encounter Additional Source Comments The information contained in this document represents components of the legal health record. It is not the complete legal health record.[facility]
--- OUTSIDE RECORDS SUMMARY | 2025-08-21 07:53 | XMS_ITS | Encounter Summary ---
Author Organization [facility] Address [address] [place] [address] Phone Care Team Providers Care Footwear Sales Representative Name Role Phone Alessandro Chang MD Primary Care Provider Alessandro Chang MD Unavailable [phone] Isael Romero MD Unavailable [phone] Cintia Pate PA-C Unavailable [phone] Encounter Details Date Type Department Care Team (Late st Contact Info) Description 06/20/2017 Procedure Pass OR Admitting Dept - Virtual Department [address] [place] [address] Social History Tobacco Use Types Packs/Day Years [...] OR Admitting Dept - Virtual Department [address] [place] [address] documented as of this encounter Visit Diagnoses Not on filedocumented in this encounter Additional Health Concerns Infection Onset Date Last Indicated Resolved Time CoV-Risk 06/25/2023 06/25/2023 07/06/2023 1:22 AM EST CoV-Risk 12/04/2024 12/04/2024 12/15/2024 1:21 AM EDT documented as of this encounter Care Teams Footwear Sales Representative Relationship Specialty Start Date End Date Alessandro Chang MD [address] [place] [address] PCP - General 06/09/17 Alessandro Chang MD [address] [place] [address] Historical LMR Provider 06/11/17 2 Isael Romero MD [address] [place] [address] [email or web address] Historical LMR Provider 06/11/17 Cintia Pate PA-C [address] [place] [address] [facility] Sports Medicine, [place] [address] [email or web address] Historical LMR Provider 06/11/17 documented as of this encounter Additional Source Comments The information contained in this document represents components of the legal health record. It is not the complete legal health record.[facility]
--- OUTSIDE RECORDS SUMMARY | 2025-08-21 07:53 | XMS_ITS | Encounter Summary ---
Author Organization [facility] and [facility] Address [address] [place] [address] Care Team Providers Care Prosecuting Attorney Name Role Phone Unavailable Primary Care Provider Unavailabl e Encounter Details Date Type Department Care Team ([facility] st Contact Info) Description 06/17/2014 Scanned Document [facility] 40 [facility] [address] [place] [address] External, Provider Social History Tobacco Use Types [...]
--- OUTSIDE RECORDS SUMMARY | 2025-08-21 07:53 | XMS_ITS | Encounter Summary ---
Author Organization [facility] Address [address] [place] [phone] Care Team Providers Care Diagnostic Sales Specialist Name Role Phone Unavailable Primary Care Provider Unavailabl e Encounter Details Date Type Department Care Team ([facility] st Contact Info) Description 03/30/2018 Scanned Document [facility] [address] [address] Ernestine Mack MD [address] [place] [phone] Social History Tobacco Use Types Packs/Day [...]
--- OUTSIDE RECORDS SUMMARY | 2025-08-21 07:53 | XMS_ITS | Encounter Summary ---
Author Organization [facility] and [facility] Address [address] [place] [phone] Care Team Providers Care Control Systems Technician Name Role Phone Unavailable Primary Care Provider Unavailabl e Encounter Details Date Type Department Care Team ([facility] st Contact Info) Description 06/21/2010 Scanned Document [facility] [address] [place] [address] 40 [facility] [address] [place] [address] External, Provider Social History Tobacco Use Types [...]
--- OUTSIDE RECORDS SUMMARY | 2025-08-21 07:53 | XMS_ITS | Encounter Summary ---
Author Organization [facility] Address [address] [place] [phone] Care Team Providers Care Critical Care Educator Name Role Phone Unavailable Primary Care Provider Unavailabl e Encounter Details Date Type Department Care Team ([facility] st Contact Info) Description 06/19/2009 Scanned Document [facility] [address] [place] [address] 40 [facility] [address] [place] [address] External, Provider Social History Tobacco Use Types [...]
== END ==
LOC: HO.CARD 07:48
PROVIDERS: PCP Internal Medicine; Visit Provider Internal Medicine
DX: I48.0 Paroxysmal atrial fibrillation (principal); R00.2 Palpitations
CPT/HCPCS: 93246; 93306

== ENCOUNTER → 2025-08-21 07:51 | Outpatient (BNV) | payer MEDICARE, SELFPAY | PROVIDERS: PCP Internal Medicine; Visit Provider Internal Medicine | DX: I35.8 Other nonrheumatic aortic valve disorders (principal) | CPT/HCPCS: 93306 ==